=== PATIENT | female | born 1955 | race Caucasian/White ===

== ENCOUNTER → 2019-10-04 15:40 | Outpatient (CLI) | payer BC, SELFPAY ==
--- NOTE | ~2019-10-04 | MR_ITS ---
EXAMINATION: MR cervical spine wo/w con DATE: 10/04/2019 17:22 INDICATION: Neck pain. Cervical spondylosis without myelopathy or radiculopathy. TECHNIQUE: Magnetic resonance imaging (MRI) of the cervical spine was performed without and with 20 m m MultiHance intravenous contrast. Sequences included sagittal and axial T2-weighted FSE, sagittal ST IR FSE, and sagittal and axial T1-weighted FSE. Postcontrast sequences included sagittal and axial T1 -weighted FS FSE. COMPARISON: Cervical spine MRI 05/13/2019, chest CT 08/29/2019 FINDINGS: There is 2 mm anterolisthesis of C4 on C5 and 2 mm retrolisthesis of C6 on C7. There is kyp hosis of cervical spine. Vertebral body heights are normal. There is mildly decreased disc height at C4-C5, moderately decreased disc height at C5-C6, and severely decreased disc height at C6-C7. At C6- C7, the spinal cord is expanded with increased T2-weighted signal intensity and contrast enhancement. The following disc levels are specifically discussed: C2-C3: The disc does not extend beyond the endplate margin. There is no uncovertebral joint osteoarth ritis. There is severe right and moderate left facet joint osteoarthritis. There is mild bilateral ne ural foraminal stenosis. There is no central canal stenosis. C3-C4: The disc does not extend beyond the endplate margin. There is no uncovertebral joint osteoarth ritis. There is severe right and moderate left facet joint osteoarthritis. There is moderate right ne ural foraminal stenosis. There is no central canal stenosis. C4-C5: The disc does not extend beyond the endplate margin. There is moderate right and mild left unc overtebral joint osteoarthritis. There is severe right facet joint osteoarthritis. There is moderate right neural foraminal stenosis. There is mild central canal stenosis with ventral indentation of spi nal cord. C5-C6: The disc is bulging. There is severe bilateral uncovertebral joint osteoarthritis. There is se mark bilateral facet joint osteoarthritis. There is mild bilateral neural foraminal stenosis. There i s mild central canal stenosis with ventral indentation of the spinal cord. C6-C7: The disc is bulging. There is severe bilateral uncovertebral joint osteoarthritis. There is mi ld bilateral facet joint osteoarthritis. There is moderate bilateral neural foraminal stenosis. There is moderate central canal stenosis with ventral and dorsal indentation of the spinal cord. C7-T1: The disc does not extend beyond the endplate margin. There is no uncovertebral joint osteoarth ritis. There is severe bilateral facet joint osteoarthritis. There is mild bilateral neural foraminal stenosis. There is no central canal stenosis. IMPRESSION: 1. Worsened spinal cord lesion at C6-C7. The differential diagnosis includes multiple sclerosis, epen dymoma, astrocytoma, metastatic disease, lymphoma, and sarcoid. 2. Severe cervical spondylosis. Reviewed, dictated and finalized at location A. O VISUAL SECRETARY IMPRESSION: 1. Worsened spinal cord lesion at C6-C7. The differential diagnosis includes mu ltiple sclerosis, ependymoma, astrocytoma, metastatic disease, lymphoma, and sa rcoid. 2. Severe cervical spondylosis.
[2019-10-04 16:16] LABS: Blood Urea Nitrogen 12 mg/dL (8-26); Estimated Glomerular Filt Rate > 60
== END ==
DX: M47.812 Spondylosis without myelopathy or radiculopathy, cervical region (principal)
CPT/HCPCS: 72156; A9577

== ENCOUNTER → 2020-12-16 17:42 | Outpatient (CLI) | payer BC, SELFPAY ==
--- NOTE | ~2020-12-16 | DEXA_ITS ---
Bone Density Report Name: Vika Gonzalez Age: 65 Sex: Female Ethnicity: White Date of : 1955 Indication: postmenopausal; screening for osteoporosis; height loss; history of glucocorticoids; asthma or emphysema; rheumatoid arthritis; Referring Provider: HOLLIE VICTORIA Study: Bone densitometry was performed. Exam Date: December 16, 2020 Accession number: [id number] Bone Density: Region BMD T-score Z-score Classification AP Spine (L1-L4) 0.910 -1.2 0.4 Osteopenia Femoral Neck (Left) 0.602 -2.2 -0.8 Osteopenia Total Hip (Left) 0.889 -0.4 0.7 Normal Femoral Neck (Right) 0.674 -1.6 -0.1 Osteopenia Total Hip (Right) 0.901 -0.3 0.8 Normal Total Hip Mean 0.895 -0.4 0.8 Normal World Health Organization criteria for BMD impression classify patients as: Normal (T-score at or above -1.0), Osteopenia (T-score between -1.0 and -2.5), or Osteoporosis (T-score at or below -2.5). 10-year Fracture Risk(1): Major Osteoporotic Fracture 18% Hip Fracture 3.1% Reported Risk Factors: [place] (), Neck BMD=0.602, BMI=48.8, glucocorticoids, rheumatoid arthritis Input outside FRAX(R) limits. Adjusted to:Eqbykf=246 kg (1) FRAX(R) Version 3.08. Fracture probability calculated for an untreated patient. Fracture probability may be lower if the patient has received treatment. Previous Exams: Region Exam Age BMD T-score BMD Change BMD Change Date g/cm2 vs Baseline vs Previous AP Spine(L1-L4) 12/16/2020 65 0.910 -1.2 -0.089* -0.089* 05/19/2017 61 0.999 -0.4 Total Hip(Left) 12/16/2020 65 0.889 -0.4 -0.047* -0.047* 05/19/2017 61 0.936 -0.1 Total Hip(Right) 12/16/2020 65 0.901 -0.3 -0.054* -0.054* 05/19/2017 61 0.955 0.1 *Denotes significance at 95% confidence level, LSC for AP Spine = 0.022 g/cm2, LSC for Total Hip = 0.027 g/cm2 Clinical Information Provided by Patient: Has taken Glucocorticoids Has rheumatoid arthritis Has used the following medications: Vitamin D, Calcium Has the following medical conditions: Asthma or Emphysema Patient maximum height was 65 Menopause Age: 39 No regular weight bearing exercise Drinks caffeinated beverages Onset of menses at age 15 Number of children 2 Impression: The patient has low bone mass, based on the Left Femoral Neck T-score. The patient has an estimated ten-year risk of hip fracture of 3.1% and an estimated ten-year risk of major f
--- NOTE | ~2020-12-16 | MM_ITS ---
EXAMINATION: MM screening tiffany BI w jose alberto HISTORY: Screening mammogram TECHNIQUE: Craniocaudal and mediolateral oblique 3-D tomosynthesis images were obtained and synthetic 2-D images were generated. CAD analysis was submitted and interpreted. COMPARISON: 10/17/2018, 05/19/2017 bilateral digital screening mammogram examinations BREAST PARENCHYMAL COMPOSITION: The breasts are almost entirely fatty. FINDINGS: There is no evidence of suspicious mass, calcification, or architectural distortion to sugg est malignancy in either breast. There has been no suspicious interval change. IMPRESSION: 1. No mammographic evidence of malignancy. 2. Recommend routine screening mammography in one year. BI-RADS Category 1: Negative Reviewed, dictated and finalized at location A.
== END ==
PROVIDERS: Visit Provider Obstetrics & Gynecology Gynecology
DX: Z12.31 Encounter for screening mammogram for malignant neoplasm of breast (principal); Z78.0 Asymptomatic menopausal state; M85.852 Other specified disorders of bone density and structure, left thigh; M85.851 Other specified disorders of bone density and structure, right thigh
CPT/HCPCS: 77063; 77067; 77080

== ENCOUNTER 2021-01-16 14:12 | Outpatient (RCR) | payer BC, SELFPAY ==
[2021-01-16 14:18] VITALS: BMI 53.2
[2021-01-16 14:25] VITALS: BMI 53.2
== END 2021-04-07 11:29 | disposition home or self-care (01) ==
LOC: ANHDMC 14:12
PROVIDERS: Visit Provider Surgery
DX: E66.9 Obesity, unspecified (principal); Z68.43 Body mass index [BMI] 50.0-59.9, adult; Z71.3 Dietary counseling and surveillance
CPT/HCPCS: 97802

== ENCOUNTER → 2021-08-14 09:13 | Outpatient (CLI) | payer BC, SELFPAY ==
--- NOTE | ~2021-08-14 | CT_ITS ---
EXAMINATION: CT abdomen pelvis wo con DATE: 08/14/2021 09:37 INDICATION: Umbilical discomfort with protrusion for 2 years. Umbilical hernia with obstruction, with out gangrene Constipation TECHNIQUE: Computed tomography (CT) of the abdomen and pelvis was performed without intravenous contr ast. Automated exposure control and iterative reconstruction technique were employed. Exam dose: 100 6.49 mGy-cm total exam DLP. COMPARISON: None. FINDINGS: The lung bases are clear of infiltrate or consolidation. Normal heart size. No pericardial or pleural effusion. There is a large sliding hiatal hernia. The liver, gallbladder, bile ducts, spleen, pancreas and pancreatic duct are unremarkable. Normal morphology of the adrenal glands. No renal mass lesion or urinary tract calculus or hydroureteronephrosis. The urinary bladder, uterus and adnexal areas are unremarkable. There is extensive calcification of the abdominal aorta but no abdominal aortic aneurysm. No intraper itoneal or retroperitoneal or pelvic mass lesion or adenopathy or ascites is detected. There are scattered diverticula of the sigmoid and descending colon; no CT evidence of diverticulitis . No bowel obstruction, bowel wall thickening, pneumatosis or intraperitoneal free air is detected. N ormal appendix. There is a large fat-containing umbilical hernia measuring up to 5.5 cm AP, 7.5 cm transverse and 6.2 cm vertical dimension. The neck of the umbilical hernia is approximately 1.6 cm wide. There is degenerative disc disease in the lower thoracic spine. There is degenerative change at the lumbar apophyseal joints with associated minimal grade 1 anteroli sthesis at L3-4 and L4-5. There is moderate degenerative disc disease at the same levels. There is mild anterior wedge compression fracture deformity of L4. IMPRESSION: Large sliding hiatal hernia Diverticulosis of the left colon; no CT evidence of diverticulitis 5.5 x 7 x 5 x 6.2 cm fat-containing umbilical hernia L4 compression fracture deformity Degenerative changes of thoracic and lumbar spine Reviewed, dictated and finalized at Location [facility]. Reviewed, dictated and finalized at location B. [facility]
== END ==
PROVIDERS: Visit Provider Surgery
DX: K42.0 Umbilical hernia with obstruction, without gangrene (principal); M51.34 Other intervertebral disc degeneration, thoracic region; M51.36 Other intervertebral disc degeneration, lumbar region; K57.30 Diverticulosis of large intestine without perforation or abscess without bleeding; K44.9 Diaphragmatic hernia without obstruction or gangrene
CPT/HCPCS: 74176

== ENCOUNTER 2022-02-20 12:30 | Outpatient (CLI) | payer BC, SELFPAY ==
[2022-02-20 13:02] LABS: Anion Gap 5 mmol/L (8-16); Blood Urea Nitrogen 24 mg/dL (7-17); Calcium 8.9 mg/dL (8.4-10.2); Carbon Dioxide 31 mmol/L (22-30); Chloride 102 mmol/L (98-107); Estimated Glomerular Filt Rate 56; Glucose 106 mg/dL (65-110); Sodium 138 mmol/L (137-145)
[2022-02-20 13:06] LABS: Hematocrit 42.2 % (37.0-47.0); Hemoglobin 13.7 g/dL (12.0-15.0)
== END 2022-02-20 12:31 | disposition home or self-care (01) ==
LOC: ANHSURGERY 12:35
PROVIDERS: Anesthesiology; PCP Internal Medicine Rheumatology; Referring Provider Obstetrics & Gynecology Gynecology; Visit Provider Surgery
DX: D64.9 Anemia, unspecified (principal); K42.0 Umbilical hernia with obstruction, without gangrene; Z01.818 Encounter for other preprocedural examination
CPT/HCPCS: 36415; 80048; 85014; 85018; 86850; 86900; 86901

== ENCOUNTER 2022-02-24 00:26 | Day surgery (SDC) | payer BC, SELFPAY ==
[2021-10-07 12:34] VITALS: BMI 47.9
--- NOTE | 2021-10-07 12:49 | PC.NURSE ---
Addendum entered by Aleah Costello RN 11/25/21 14:29: PT TO ARRIVE AT 0600 ON 12/02/21 FOR SURGERY AT 0730. STOP VITAMINS 11/29/21. Original Note: Report to the Outpatient Waiting Room, entrance under the green pavilion located off [facility], at time 6:00 on date 10/15/21. OR Time: 7:30. - You will be asked a series of questions to screen for COVID 19 for your protection. - A mask is required within the hospital. - One visitor is allowed at this time. Preoperative COVID Testing Requirements: No COVID Test needed if: (proof is required; if not received patient will have Rapid Test prior to entry) - Patient has received COVID Vaccine at least 14 days prior to procedure date or - Patient has positive COVID test result within last 90 days of surgery date. COVID Test needed if above criteria is not met Patients may have clear liquids (water, carbonated beverages, clear teas, apple juice) until 3 hours prior to surgery (4:30) with a maximum of 20 ounces. - No food from midnight until time of surgery Take the following medications with a SIP of water the morning of surgery: LYRICA, DILTIAZEM, CEFUROXIME, TRAMADOL (IF NEEDED) Medications to discontinue per physician: VITAMINS/SUPPLEMENTS Date to take last dose: 10/11/21 Please no make-up, nail irish, hairspray, perfume, deodorant, or body powder the day of surgery. No jewelry (including any body piercings) or valuables the day of surgery, leave them at home. Please take a shower or bath the night before, or the morning of, surgery with an antibacterial soap. Wear comfortable, loose fitting clothing. CHLORHEXIDINE SHOWER - Jewelry must be removed prior to entering the operating room. Rings and piercings that are not removed may be cut off. - The hospital will not accept responsibility for valuables. - Please leave all valuables, including medications, at home the day of surgery. If you are going home after surgery, a licensed tanker driver must drive you home. - NO public transportation without another adult. - We recommend that an adult stay with you for 24 hours following discharge. - We also recommend that you do not drive, make important decision, drink alcoholic beverages, or take any drugs that were not prescribed by your health care provider for at least 24 hours after your discharge time. Follow any additional instructions given to you from your surgeon. Telephone instructions given to OSMIN VALLES and asked if any additional questions and then verbalized understanding. Patient advised to call surgeon office or pre surgery nurse liaison [phone] if any additional questions.
[2021-11-25 14:14] VITALS: BMI 47.9
--- NOTE | 2021-12-01 11:01 | P.PNAN_ITS ---
Anes - Initial Pre Proc Eval Procedure: Operation Date: 12/02/21 07:30 Proposed Procedures p Laparoscopic Incarcerated Umbilical Hernia Repair with Mesh, Davinci Assisted - Slick Thakkar DO Date/Time: 12/01/21 11:01 Surgeon: Slick Thakkar DO Pre Op Diagnosis: incarcerated umbilical hernia Patient Data Age: 66 Gender: F Height: 1.63 m Weight: 126.55 kg Allergies Allergy/AdvReac Type Severity Reaction Status Date / Time No Known Allergies Allergy Verified 11/25/21 14:12 Home Medications Medication Instructions Recorded Confirmed Type cholecalciferol (vitamin D3) 10 10 mcg PO DAILY 10/28/20 11/25/21 History mcg (400 unit) capsule diltiazem HCl 300 mg 300 mg PO DAILY 10/28/20 11/25/21 History capsule,extended release 24 hr doxazosin 4 mg tablet 10 mg PO HS 10/28/20 11/25/21 History folic acid 1 mg tablet 1 mg PO DAILY 10/28/20 11/25/21 History infliximab 100 mg intravenous 600 mg IV ONCE 10/28/20 11/25/21 History solution methotrexate sodium 2.5 mg tablet 2.5 mg PO WEEKLY 10/28/20 11/25/21 History omeprazole 20 mg capsule,delayed 20 mg PO DAILY 10/28/20 11/25/21 History release quinapril 40 mg tablet 40 mg PO DAILY 10/28/20 11/25/21 History torsemide 10 mg tablet 10 mg PO QAM 10/28/20 11/25/21 History tramadol 50 mg tablet 50 mg PO Q6H PRN 10/28/20 11/25/21 History zolpidem 10 mg tablet 10 mg PO QHS PRN 10/28/20 11/25/21 History baclofen 10 mg PO TID 10/07/21 11/25/21 History pregabalin [Lyrica] 50 mg PO TID 10/07/21 11/25/21 History sulfamethoxazole-trimethoprim 1 tablet PO Q12H 12/01/21 12/01/21 History [Bactrim DS] Results Review: All pre-operative results and documents have been reviewed as part of the pre-operative evaluation. [facility] Past Medical History Medical History Asthma GERD (gastroesophageal reflux disease) History of blood clots March 2019 Hypertension JEROME (obstructive sleep apnea) Surgical History Surgical History History of delivery History of endoscopy History of sinus surgery Family History Family History Mother Ovarian cancer Hypertension Unknown Hypertension Cancer Social History Social History Smoking status: Never smoker Alcohol intake: current Drinks per week: 2 Alcohol use details: social Substance use: never Substance use type: does not use 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 Informed Consent: The patient's anesthetic plan and its attendant risks and bene fits were discussed with the patient/family/POA. Questions were solicited and answers provided to the satisfaction of the patient/family/POA.
--- NOTE | 2022-02-16 10:20 | PC.NURSE ---
Addendum entered by Naida Burgess RN 02/16/22 10:42: DR BOWEN STATES OK TO TAKE CELEBREX UP UNTIL THE DAY BEFORE SURGERY. Original Note: Report to the Outpatient Waiting Room, entrance under the [place] pavilion located off [facility], at time _0630_ on date 02/24/22__. OR Time: 0830__. - You and your visitor will be asked a series of questions to screen for COVID 19 for your protection. - Only one visitor is allowed at this time. - The patient visitor is requested to leave or wait in car when not with patient. - A mask is required within the hospital. Patients may have clear liquids (water, carbonated beverages, clear teas, apple juice) until 3 hours prior to surgery with a maximum of 20 ounces. - No food from midnight until time of surgery - Infants may have breast milk until 4 hours before surgery, infant formula 6 hours prior to surgery. - Children will be allowed to drink immediately following surgery. If applicable, please bring a bottle or sippy cup to assist with drinking. Juice, water, soda, and popsicles are readily available. For infants on formula, please bring formula the day of surgery. Pacifiers are allowed. Take the following medications with a SIP of water the morning of surgery: __LYRICA,DILTIAZEM, TRAMADOL Medications to discontinue per physician CELEBREX, VITAMINS/SUPPLIMENTS Date to take last dose 02/20/22 Please no make-up, nail [place] citizen, hairspray, perfume, deodorant, or body powder the day of surgery. No jewelry (including any body piercings) or valuables the day of surgery, leave them at home. Please take a shower or bath the night before, or the morning of, surgery with an antibacterial soap. Wear comfortable, loose fitting clothing. Children are encouraged to wear pajamas. - Jewelry must be removed prior to entering the operating room. Rings and piercings that are not removed may be cut off. - The hospital will not accept responsibility for valuables. - Please leave all valuables, including medications, at home the day of surgery. If you are going home after surgery, a licensed [employer] driver must drive you home. - NO public transportation without another adult. - We recommend that an adult stay with you for 24 hours following discharge. - We also recommend that you do not drive, make important decision, drink alcoholic beverages, or take any drugs that were not prescribed by your health care provider for at least 24 hours after your discharge time. For Pediatric surgeries, we recommend two adults accompany the child home (only one inside the building at this time). Follow any additional instructions given to you from your surgeon. If you or anyone in your household have experienced Covid symptoms in the past week, please notify your surgeon or the nurse liaison at the phone number below for possible testing. Telephone instructions given to ___PATIENT____and asked if any additional questions and then verbalized understanding. Patient advised to call surgeon office or pre surgery nurse liaison [phone] if any additional questions.
[2022-02-24] VITALS (10 sets, daily range): BP systolic 119–154; BP diastolic 52–70; PULSE 48–74; RESP 12–18; TEMP 36.2–36.3; O2SAT 92–98
[2022-02-24] MEDS: LACTATED RINGERS 1,000 ML 30 ML IV CONT ×2 (07:20→10:31)
[2022-02-24] MEDS: ACETAMINOPHEN 500 MG TABLET 1000 MG PO (07:22)
[2022-02-24] MEDS: KETOROLAC 15 MG/ML VIAL (*BKC) IV PUSH (07:23)
--- NOTE | 2022-02-24 07:37 | PM.IMHP ---
H&P: HPI History of Present Illness Date/Time: 02/24/22 07:37 Chief Complaint: Incarcerated umbilical hernia Narrative: 66 yo woman presents for incarcerated umbilical hernia repair. She has been followed for the past year and was encouraged to lose weight prior to surgical repair. She has tried losing weight but has been unsuccessful. The hernia is causing more symptoms and she wishes to proceed with surgery at this time. Review of Systems Review of Systems: All systems reviewed & are unremarkable except as noted in HPI and below Constitutional: Constitutional: Denies chills, Denies fever(s), Denies headache(s) and Denies weight loss Eyes: Eyes: Denies change in vision ENT: Denies dizziness, Denies headache(s), Denies neck mass and Denies throat swelling Cardiovascular: Cardiovascular: Denies chest pain, Denies lightheadedness and Denies dyspnea Respiratory: Respiratory: Denies cough, Denies dyspnea and Denies wheezing Gastrointestinal: Gastrointestinal: Denies abdominal pain, Denies change in bowel habits, Denies nausea and Denies vomiting Genitourinary: Genitourinary: Denies hematuria and Denies dysuria Musculoskeletal: Musculoskeletal: Reports as per HPI Integumentary/Breasts: Skin/Breast: Reports as per HPI Neurologic: Denies dizziness and Denies headache(s) Allergic/Immunologic: Allergic/Immunologic: Denies throat swelling and Denies wheezing PMFSH Past Medical History Medical History Asthma GERD (gastroesophageal reflux disease) History of blood clots March 2019 Hypertension JEROME (obstructive sleep apnea) Surgical History Surgical History History of delivery History of endoscopy History of sinus surgery Family History Family History Mother Ovarian cancer Hypertension Unknown Hypertension Cancer Social History Social History Smoking status: Never smoker Alcohol intake: current Drinks per week: 2 Alcohol use details: social Substance use: never Substance use type: does not use Living arrangements: with family 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 Spiritual care concerns: No Meds Home Medications and Allergies Home Medications Medication Instructions Recorded Confirmed Type cholecalciferol (vitamin D3) 10 10 mcg PO WEEKLY 10/28/20 02/24/22 History mcg (400 unit) capsule diltiazem HCl 300 mg 300 mg PO DAILY 10/28/20 02/24/22 History capsule,extended release 24 hr doxazosin 4 mg tablet 10 mg PO HS 10/28/20 02/24/22 History folic acid 1 mg tablet 1 mg PO DAILY 10/28/20 02/24/22 History infliximab 100 mg intravenous 800 mg IV ONCE 10/28/20 02/24/22 History solution (Remicade) methotrexate sodium 2.5 mg tablet 25 mg PO WEEKLY 10/28/20 02/24/22 History omeprazole 20 mg capsule,delayed 20 mg PO DAILY 10/28/20 02/24/22 History release quinapril 40 mg tablet 40 mg PO DAILY 10/28/20 02/24/22 History torsemide 10 mg tablet 10 mg PO QAM 10/28/20 02/24/22 History tramadol 50 mg tablet 50 mg PO Q6H PRN Pain 10/28/20 02/24/22 History zolpidem 10 mg tablet 10 mg PO QHS PRN Insomnia 10/28/20 02/24/22 History baclofen 10 mg tablet 10 mg PO TID 10/07/21 02/24/22 History pregabalin 50 mg capsule (Lyrica) 50 mg PO QID 10/07/21 02/24/22 History albuterol sulfate 90 mcg/actuation 2 puff inhalation QID PRN 02/16/22 02/24/22 History aerosol inhaler Shortness Of Breath celecoxib 200 mg capsule (Celebrex) 200 mg PO BID PRN Pain 02/16/22 02/24/22 History Allergies Allergy/AdvReac Type Severity Reaction Status Date / Time No Known Allergies Allergy Verified 02/24/22 07:05 Vital Signs Vital Signs - 24 hr 02/24/22 07:00 Temperature 36.3 C L Pulse Rate 65 Respiratory Rate 18 Blood Pressure 148/67 H Pulse Oxim
--- NOTE | 2022-02-24 07:41 | WPDANESEPPF ---
Anes - Initial Pre Proc Eval Procedure: Operation Date: 02/24/22 08:30 Proposed Procedures p Laparoscopic Incarcerated Umbilical Hernia Repair with Mesh, Davinci Assisted - Slick Thakkar DO Date/Time: 02/24/22 07:41 Surgeon: Slick Thakkar DO Pre Op Diagnosis: incarcerated umbilical hernia Patient Data Age: 66 Gender: F Height: 1.63 m Weight: 123 kg Last Vital Signs Temp 36.3 C L 02/24/22 07:00 Pulse 65 02/24/22 07:00 Resp 18 02/24/22 07:00 BP 148/67 H 02/24/22 07:00 Pulse Ox 97 02/24/22 07:00 O2 Del Method Room Air 02/24/22 07:00 Allergies Allergy/AdvReac Type Severity Reaction Status Date / Time No Known Allergies Allergy Verified 02/24/22 07:05 Home Medications Medication Instructions Recorded Confirmed Type cholecalciferol (vitamin D3) 10 10 mcg PO WEEKLY 10/28/20 02/24/22 History mcg (400 unit) capsule diltiazem HCl 300 mg 300 mg PO DAILY 10/28/20 02/24/22 History capsule,extended release 24 hr doxazosin 4 mg tablet 10 mg PO HS 10/28/20 02/24/22 History folic acid 1 mg tablet 1 mg PO DAILY 10/28/20 02/24/22 History infliximab 100 mg intravenous 800 mg IV ONCE 10/28/20 02/24/22 History solution (Remicade) methotrexate sodium 2.5 mg tablet 25 mg PO WEEKLY 10/28/20 02/24/22 History omeprazole 20 mg capsule,delayed 20 mg PO DAILY 10/28/20 02/24/22 History release quinapril 40 mg tablet 40 mg PO DAILY 10/28/20 02/24/22 History torsemide 10 mg tablet 10 mg PO QAM 10/28/20 02/24/22 History tramadol 50 mg tablet 50 mg PO Q6H PRN Pain 10/28/20 02/24/22 History zolpidem 10 mg tablet 10 mg PO QHS PRN Insomnia 10/28/20 02/24/22 History baclofen 10 mg tablet 10 mg PO TID 10/07/21 02/24/22 History pregabalin 50 mg capsule (Lyrica) 50 mg PO QID 10/07/21 02/24/22 History albuterol sulfate 90 mcg/actuation 2 puff inhalation QID PRN 02/16/22 02/24/22 History aerosol inhaler Shortness Of Breath celecoxib 200 mg capsule (Celebrex) 200 mg PO BID PRN Pain 02/16/22 02/24/22 History Patient hx anesthesia problems: none Family hx anesthesia problems: none Results Review: All pre-operative results and documents have been reviewed as part of the pre-operative evaluation. [facility] Past Medical History Medical History (Updated 02/24/22 @ 07:43 by Kofi Lyon MD) Asthma BMI 45.0-49.9, adult GERD (gastroesophageal reflux disease) History of blood clots March 2019 Hypertension Neurosarcoidosis in adult JEROME (obstructive sleep apnea) Rheumatoid arthritis Surgical History Surgical History History of delivery History of endoscopy History of sinus surgery Family History Family History Mother Ovarian cancer Hypertension Unknown Hypertension Cancer Social History Social History Smoking status: Never smoker Alcohol intake: current Drinks per week: 2 Alcohol use details: social Substance use: never Substance use type: does not use Living arrangements: with family 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 Informed Consent: The patient's anesthetic plan and its attendant risks and benefits were discussed with the patient/family/POA. Questions were solicited and answers provided to the satisfaction of the patient/family/PO
--- NOTE | 2022-02-24 07:42 | WPDHPUPDATE1 ---
History and Physical Update Update Date/Time: 02/24/22 07:42 History and Physical has been reviewed, including an updated exam of the patient. There are NO changes in the patient's condition. Risks, benefits, and alternatives have been discussed and questions answered. Patient agrees to proceed with procedure.
[2022-02-24] MEDS: ceFAZolin 3 GM/D5W 100 ML 100 ML IVPB (08:27)
--- NOTE | 2022-02-24 10:23 | W.PM.PROC2 ---
Procedure Note - Detailed Date of Procedure 02/24/22 Pre-op Diagnosis incarcerated umbilical hernia Post-op Diagnosis Same Procedure Performed Laparoscopic Incarcerated Umbilical Hernia Repair with Mesh, da Dusty assisted Surgeon Slick Thakkar DO Anesthesia General and Local (Exparel) Indications This is a 66-year-old woman who presented with a hernia at her umbilicus that has been present for the past several years. It has gradually become larger and is causing more pain and difficulty with activity. She was 1st seen in my office about 1 year ago and had a BMI around 53. She has lost about 40 lb since then and her BMI is now around 46. Discussions were previously made with the patient about delaying surgery until she had lost more weight, but she felt that her symptoms were severe enough now with pain with the hernia that she wanted to proceed. Decision was made to proceed with robotic assisted laparoscopic incarcerated umbilical hernia repair with mesh. Findings Laparoscopic incarcerated umbilical hernia repair was performed. The patient was found to have an umbilical hernia incarcerated with omentum. Part of the omentum was excised with the hernia sac and sent to the lab for pathology. A robotic intraperitoneal onlay mesh technique was utilized for repair. The hernia defect only measured about 1.5 cm wide. The fascia was closed using #1 Stratafix running absorbable suture. A Ventralight ST 15 cm x 10 cm mesh was then placed and secured around the perimeter of the mesh to the abdominal wall using 2 0 V lock running absorbable suture. Description of Procedure Procedure as well as risks, benefits, and alternatives were discussed with the patient. Written consent was obtained and placed in chart prior to procedure. Patient was brought back to surgical suite. She was placed supine on operating table. Time-out was done to confirm patient and procedure. She was then intubated by the anesthesia department. A bump was placed under her left hip, and the bed was flexed slightly to extend the space between her costal margin and iliac crest. Her abdomen was prepped and draped in sterile fashion using chlorhexidine prep. A 5 millimeter incision was made in the left upper quadrant, and a 5 millimeter Optiview trocar was advanced through the abdominal layers under direct visualization. Once inside the abdominal cavity, carbon dioxide insufflation was used to create a pneumoperitoneum. Her abdomen was inspected. An 8 millimeter incision was made in the left lower quadrant, and an 8 millimeter robotic trocar was placed under direct visualization. Another 8 millimeter incision was made in the left lateral abdomen, and an 8 millimeter robotic trocar was placed under direct visualization. Exparel was infiltrated along the lateral abdominal long to perform a transversus abdominis plane block bilaterally. The 5 millimeter port was removed, the incision was extended to 12 millimeters, and a 12 millimeter air seal port was placed under direct visualization. A Esteban-Downey cone was also used to place an 0-Vicryl simple interrupted suture at this trocar site. The robotic arms were brought up to the patient's bedside and secured to the ports. The camera and instruments were inserted, and I then moved over to the robotic console and took control of the camera and instruments. After careful thorough inspection of the abdominal cavity, I began my dissection at the hernia. The omentum was reduced from within the hernia sac and then the hernia sac was excised using scissors with electrocautery. I then measured the hernia size. The hernia measured 1.5 cm. The fascia was closed using a 1-Stratafix running suture in a vertical fashion. A Ventralight ST 15 cm x 10 cm mesh was then placed within the abdominal cavity. This was oriented vertically with the mesh centered on the hernia defect. The mesh was then secured to the abdominal wall around the perimeter us
[2022-02-24] MEDS: fentaNYL CITRATE INJ (*CRX) 100 MCG/2 ML VIAL 25 MCG IV PUSH ×2 (11:17→11:32)
[2022-02-24] MEDS: oxyCODONE HCL (*CRX) 5 MG TAB IR PO (11:59)
== END 2022-02-24 12:58 | disposition home or self-care (01) ==
PROVIDERS: PCP Internal Medicine Rheumatology; Visit Provider Surgery
PROC: (CPT 49653; principal; 2022-02-24 08:30)
DX: K42.0 Umbilical hernia with obstruction, without gangrene (principal); J45.909 Unspecified asthma, uncomplicated; G47.33 Obstructive sleep apnea (adult) (pediatric); M06.9 Rheumatoid arthritis, unspecified; I10 Essential (primary) hypertension; Z79.51 Long term (current) use of inhaled steroids; E66.01 Morbid (severe) obesity due to excess calories; Z68.42 Body mass index [BMI] 45.0-49.9, adult
CPT/HCPCS: 49653; S2900; 88302; A9270; C1781; C9290; J0330; J0690; J1100; J1885; J2250; J2405; J2704; J2710; J3010; J7030; J7120

== ENCOUNTER 2022-09-09 11:05 | Outpatient (CLI) | payer BC, SELFPAY ==
--- NOTE | ~2022-09-09 | US_ITS ---
US venous doppler [facility] DATE: 09/09/2022 12:16 INDICATION: Bilateral lower leg edema TECHNIQUE: Real-time and color flow imaging and Doppler analysis of the veins of the lower extremitie s COMPARISON: None FINDINGS: The greater saphenous veins are patent. There is spontaneous and phasic flow and normal aug mentation and color flow signal and normal compression of the common femoral, femoral and popliteal v eins bilaterally and the left posterior tibial and peroneal veins. The right peroneal and mid right posterior tibial veins are not visualized. There is partial compress ion of the distal right posterior tibial vein. IMPRESSION: Suspected deep venous thrombosis of the right posterior tibial and peroneal veins; the re mainder of the deep veins of both legs are patent Reviewed, dictated and finalized at [facility]. Reviewed, dictated and finalized at location B. RAISER IMPRESSION: Suspected deep venous thrombosis of the right posterior tibial and peroneal veins; the remainder of the deep veins of both legs are patent
== END 2022-09-09 11:06 | disposition home or self-care (01) ==
PROVIDERS: PCP Internal Medicine Rheumatology; Visit Provider Internal Medicine Rheumatology
DX: R60.0 Localized edema (principal)
CPT/HCPCS: 93970

== ENCOUNTER → 2022-09-25 16:31 | Outpatient (CLI) | payer BC, SELFPAY ==
--- NOTE | ~2022-09-25 | MM_ITS ---
EXAMINATION: MM screening tiffany BI w jose alberto HISTORY: Screening mammogram TECHNIQUE: Craniocaudal and mediolateral oblique 3-D tomosynthesis images were obtained and synthetic 2-D images were generated. CAD analysis was submitted and interpreted. COMPARISON: 12/16/2020, 10/17/2018, 05/19/2017 bilateral screening mammogram examinations BREAST PARENCHYMAL COMPOSITION: The breasts are almost entirely fatty. FINDINGS: There is no evidence of suspicious mass, calcification, or architectural distortion to sugg est malignancy in either breast. There has been no suspicious interval change. IMPRESSION: 1. No mammographic evidence of malignancy. 2. Recommend routine screening mammography in one year. BI-RADS Category 1: Negative Reviewed, dictated and finalized at location A. [employer]
== END ==
PROVIDERS: Visit Provider Obstetrics & Gynecology Gynecology
DX: Z12.31 Encounter for screening mammogram for malignant neoplasm of breast (principal)
CPT/HCPCS: 77063; 77067

== ENCOUNTER 2023-08-26 07:37 | Outpatient (CLI) | payer OTHER, SELFPAY ==
--- NOTE | 2023-08-26 | ECG_ITS ---
Measurements Intervals [place] Rate: 65 P: 44 NC: 142 QRS: 20 QRSD: 106 T: -5 QT: 329 QTc: 343 Interpretive Statements SINUS RHYTHM NONSPECIFIC T-WAVE ABNORMALITY- INFERIOR LEADS BASELINE ARTIFACT- I, II, III, AVR, AVL, AVF BORDERLINE ECG NO PREVIOUS ECG AVAILABLE FOR COMPARISON Electronically Signed On 08-26-2023 9:23:28 ELECTRONICS TECHNICIAN APPRENTICE by Constantin Maxwell D.O.
[2023-08-26 08:41] LABS: Appearance Urine Clear (Clear); Bacteria Urine None Seen /hpf; Bilirubin Urine Negative (Negative); Blood Urine Negative (Negative); Color Urine Yellow (Yellow); Glucose Urine UA Negative (Negative); Ketones Urine Negative (Negative); Leukocyte Esterase Ur Trace LEU/UL (Negative); Nitrate Urine Negative (Negative); Non Pathogenic Casts 0-2; Protein Urine Negative (Negative); RBC Urine 0-2 /hpf (0-2); Specific Grav Ur 1.005 (1.001-1.035); Squamous Epithelial Cell Urine None seen /hpf (Few); Urobilinogen Urine 0.2 mg/dL (<2.0); WBC Urine 0-5 /hpf
[2023-08-26 08:43] LABS: Add Urine Microscopic? YES
[2023-08-26 08:46] LABS: Basophils Percent Auto 0.9 % (0.2-1.2); Eosinophils Absolute Auto 0.2 K/mm3 (0-0.3); Eosinophils Percent Auto 3.9 % (0-4.4); Hematocrit 41.7 % (37.0-47.0); Hemoglobin 13.6 g/dL (12.0-15.0); Immature Granulocyte Absolute 0.02 K/mm3 (0.00-0.031); Immature Granulocyte Percent A 0.4 % (0-0.5); Lymphocytes Absolute Auto 0.84 K/mm3 (0.9-3.2); Lymphocytes Percent Auto 18.1 % (18.3-44.2); Mean Corpuscular HGB Conc 32.6 g/dl (32-36); Mean Corpuscular Hemoglobin 31.5 pg (26-34); Mean Corpuscular Volume 96.5 fl (80-100); Mean Platelet Volume 9.8 fl (7.4-10.4); Monocytes Absolute Auto 0.4 K/mm3 (0.1-0.6); Monocytes Percent Auto 8.6 % (2.6-8.5); Neutrophils Absolute Auto 3.2 K/mm3 (1.3-6.7); Neutrophils Percent Auto 68.1 % (45.5-73.1); Platelet Count Result 278 k/mm3 (150-375); Red Blood Count 4.32 M/mm3 (4.2-5.4); Red Cell Distribution Width 13.9 % (11.5-14.5); White Blood Count 4.6 K/mm3 (4.5-10.0)
[2023-08-26 08:57] LABS: INR 1.1; Prothrombin Time 14.7 Seconds (11.1-14.7)
[2023-08-26 08:58] LABS: Partial Thromboplastin Time 40.7 SECONDS (22.3-36.8)
[2023-08-26 09:12] LABS: Anion Gap 10 mmol/L (8-16); Blood Urea Nitrogen 15 mg/dL (7-17); Calcium 9.4 mg/dL (8.4-10.2); Carbon Dioxide 32 mmol/L (22-30); Chloride 97 mmol/L (98-107); Estimated Glomerular Filt Rate > 60; Glucose 88 mg/dL (65-110); Potassium 3.2 mmol/L (3.4-5.0); Sodium 139 mmol/L (137-145)
== END 2023-08-26 07:38 | disposition home or self-care (01) ==
LOC: ANHLAB 07:44
PROVIDERS: Visit Provider Neurological Surgery
DX: Z01.818 Encounter for other preprocedural examination (principal); R94.31 Abnormal electrocardiogram [ECG] [EKG]
CPT/HCPCS: 36415; 80048; 81001; 85025; 85610; 85730; 93005

== ENCOUNTER 2023-12-30 13:00 | Outpatient (RCR) | payer OTHER, SELFPAY ==
--- NOTE | 2023-11-18 14:07 | PTOPEVAL1 ---
Assessment and note entered by Pablo Gaitan Evaluation Information Assessment Status Evaluation Diagnosis s/p L3-5 Onset 09/04/23 Subjective Information Pt. reports she underwent lumbar fusion in August . She reports that she is currently using a cane to walk. She states that she still has pain described across the buttock. She states that she does have some trouble sleeping due to pain in her low back. She reports that she does have a hx of RA. She states that she can stand for about 10 minutes before having to sit. She reports that she has returned to driving, but her continues to complete tasks that require being on her feet for long periods of time. She states that she feels unstable with walking and states that she avoids the stairs to her basement. She reports that her is doing her laundry due to her lack of safety with stairs. She reports that her goal for therapy is to improve her mobility and be able to walk better and navigate steps. Reported Pain Level Pain Score 3: Self Report Assessment PT Clinical Summary Pt. is a 68 year old female who enters the clinic post lumbar fusion. She presents with moderate fall risk, impaired gait, impaired l.e. strength and functional decline. Continued skilled PT is indicated in order to improve these areas to allow for improved safety and independence with IADL's. Plan of Care Interventions Electrical Stimulation,Gait Training,Hot Pack/Cold Pack,Manual Therapy,Neuro Re-education,Patient/ Caregiver Educati,Therapeutic Activities, Therapeutic Exercise PT Services Indicated Yes Treatment Frequency and 2x/week x 10 visits Duration These treatments will address the objective and functional deficits as defined above. The patient will be advanced safely and appropriately in order for the patient to progress towards his/her prior level of function. Additional exercises will be introduced and as well as a comprehensive home exercise program upon discharge, if needed, ?to ensure carryover of functional gains achieved in the clinic. This treatment plan has been reviewed and agreement upon by the patient.
--- NOTE | 2023-11-18 14:07 | OPREHPOC ---
Outpatient Therapy Plan of Care This is a Multidisciplinary Plan of Care that may contain components documented by all disciplines (PT, OT, and ST.) PT Problem 1 PT Problem #1 Knowledge Deficit PT Goal 1 Goal Independent with a HEP addressing strength and functional mobility. Target Visit 2 PT Problem 2 PT Problem #2 Impaired Balance PT Goal 1 Goal Improve tinetti score to 24 or greater Improve 5 time sit to stand to less than 13 seconds Target Visit 10 PT Problem 3 PT Problem #3 Impaired Gait PT Goal 1 Goal Complete 6 minute walk test with equal right and left stance at 100% accuracy over a distance of 800'. Navigate stairs with reciprocal pattern for 15 steps independently to return to safely doing her laundry. Target Visit 10 PT Problem 4 PT Problem #4 Impaired Strength PT Goal 1 Goal Present with 4/5 or greater gross l.e. strength Target Visit 10
--- NOTE | 2023-12-30 13:48 | PTOPDC ---
Assessment and note entered by Pablo Gaitan Evaluation Information Assessment Status Discharge Diagnosis s/p L3-5 fusion Onset 09/04/23 Subjective Information Pt. reports that she is doing better. She notices that she is able to get out of a chair with improved ease. She states that she still has trouble with walking over a long distance. She states that she will continue with her HEP and is ready for discharge. Reported Pain Level Pain Score 2: Self Report Assessment PT Clinical Summary Pt. has met majority of goals established at the initial evaluation. She is encouraged to continue with her HEP and is appropriate for discharge at this time. Plan of Care PT Services Indicated No
== END 2023-12-30 14:58 | disposition home or self-care (01) ==
LOC: ANHPT 13:00
PROVIDERS: Visit Provider Neurological Surgery
DX: Z47.89 Encounter for other orthopedic aftercare (principal); Z98.1 Arthrodesis status
CPT/HCPCS: 97110; 97116; 97140; 97161; 97530; 97750

== ENCOUNTER 2024-02-11 13:03 | Outpatient (CLI) | payer OTHER, SELFPAY ==
--- NOTE | ~2024-02-11 | MM_ITS ---
EXAMINATION: MM screening tiffany BI w jose alberto HISTORY: Screening TECHNIQUE: Craniocaudal and mediolateral oblique 3-D tomosynthesis images were obtained and synthetic 2-D images were generated. CAD analysis was submitted and interpreted. COMPARISON: Comparison to multiple prior studies sequentially, with oldest reviewed study dated 05/19. BREAST PARENCHYMAL COMPOSITION: Not dense: There are scattered areas of fibroglandular density. FINDINGS: There is no evidence of suspicious mass, calcification, or architectural distortion to sugg est malignancy in either breast. There has been no suspicious interval change. IMPRESSION: 1. No mammographic evidence of malignancy. 2. Recommend routine screening mammography in one year. BI-RADS Category 1: Negative Reviewed, dictated and finalized at location B.
--- NOTE | ~2024-02-11 | DEXA_ITS ---
? Bone Density Report? Name:? OSMIN VALLES Patient ID:??? [id number] Age:? 68 Sex:? Female Ethnicity:? White Date of : 1955 Indication: postmenopausal; screening for osteoporosis; height loss; asthma or emphysema; rheumatoid arthritis; Referring Provider: HOLLIE VICTORIA Study: Bone densitometry was performed. Exam Date: February 11, 2024 Accession number: [id number] Bone Density: Region?BMD??? T-score? Z-score?? Classification Femoral Neck (Left)? 0.540?? -2.8? -1.2? Osteoporosis Total Hip (Left)? 0.764?? -1.5? -0.2? Osteopenia Femoral Neck (Right)? 0.617?? -2.1? -0.5? Osteopenia Total Hip (Right)? 0.764?? -1.5? -0.2? Osteopenia Femoral Neck Mean? 0.578?? -2.4? -0.9? Osteopenia Total Hip Mean? 0.764?? -1.5? -0.2? Osteopenia World Health Organization criteria for BMD impression classify patients as: Normal (T-score at or above -1.0), Osteopenia (T-score between -1.0 and -2.5), or Osteoporosis (T-score at or below -2.5). 10-year Fracture Risk: FRAX not reported because: ? Some T-score for Spine Total or Hip Total or Femoral Neck at or below -2.5 Clinical Information Provided by Patient: Has rheumatoid arthritis Has the following medical conditions: Asthma or Emphysema Patient maximum height was 65 Menopause Age: 52 No regular weight bearing exercise Drinks caffeinated beverages Onset of menses at age 14 Number of children 2 Impression: The patient has osteoporosis, based on the Left Femoral Neck T- score. Discussion: INCREASED RISK OF FRACTURE. BONE DENSITY IS UNDESIRABLY LOW AT ONE OR MORE SKELETAL SITES, CONSISTENT WITH POSTMENOPAUSAL OSTEOPOROSIS. This patient's lowest T-score meets the World Health Organization's (WHO) criteria for osteoporosis at one or more sites (T-score -2.5 or below).? In untreated patients, the risk of osteoporotic fracture increases approximately two-fold for each 1.0 SD decrease in T-score.? Low bone density is not the only risk factor for fracture; also consider factors such as patient's age, frailty or poor health, risk of falling, risk of injury, previous osteoporotic fracture, family history of osteoporosis, cigarette smoking, low body weight, etc.? Not everyone with low bone mineral density has osteoporosis; osteomalacia and other metabolic bone disorders should also be considered. Patients who have osteoporosis should be evaluated for specific diseases and conditions (secondary causes) that may cause or contribute to bone loss.? The [place] [employer] Endocrinologists (AACE) and National Osteoporosis Foundation (NOF) recommend pharmacologic intervention for all postmenopausal women whose T-score is in this range. The damaso
== END 2024-02-11 13:04 | disposition home or self-care (01) ==
LOC: CHSIMG 13:04
PROVIDERS: PCP Internal Medicine Rheumatology; Visit Provider Obstetrics & Gynecology Gynecology
DX: Z12.31 Encounter for screening mammogram for malignant neoplasm of breast (principal); Z78.0 Asymptomatic menopausal state; M81.0 Age-related osteoporosis without current pathological fracture; M85.89 Other specified disorders of bone density and structure, multiple sites
CPT/HCPCS: 77063; 77067; 77080

== ENCOUNTER 2024-09-13 19:57 | Emergency (ER) | payer MEDICARE, SELFPAY ==
--- NOTE | ~2024-09-13 | US_ITS ---
EXAM: ABDOMEN ULTRASOUND HISTORY: Right upper quadrant abdominal pain COMPARISON: Reference is made to CT examination of the abdomen and pelvis dated 08/14/2021 FINDINGS: LIVER: The liver is increased in echogenicity. The main portal vein is patent demonstrating hepatoped al (but phasic) flow. GALLBLADDER: The gallbladder is markedly distended, with multiple echogenic stones No gallbladder wal l thickening or pericholecystic fluid on submitted static imaging. BILE DUCTS: Common bile duct measures 3.83mm. PANCREAS: Limited evaluation of the majority of the pancreas secondary to overlying bowel gas. The main pancreatic duct is described as prominent. Measuring 2.4 mm within the body of the pancreas (may measure up to 3 mm in a patient of this age). IMPRESSION: Cholelithiasis, without ultrasound evidence of cholecystitis. Gallbladder distention not meeting size criteria for hydrops. Reviewed, dictated and finalized at location A. FORMER BACKTENDER
--- NOTE | ~2024-09-13 | CT_ITS ---
CLINICAL INDICATION: Upper abdominal pain COMPARISON: Reference is made to a right upper quadrant ultrasound performed one hour earlier. Comparison is made to CT examination of the abdomen and pelvis dated 08/14/2021. TECHNIQUE: Multiple contiguous axial images of the abdomen and pelvis were performed following the ad ministration of with 100 mL Omnipaque-350 intravenous contrast The dose-length product (DLP) was 551.55 mGy-cm. Automated exposure control and iterative reconstruction technique were employed. FINDINGS/OBSERVATIONS: Visualized lower thorax: The bilateral lung bases are clear. The heart is of normal size, without pericardial effusion. Moderate hiatal hernia is redemonstrated. Liver: The liver enhances homogeneously and is not enlarged, measuring 17 cm in longitudinal dimension Gallbladder and biliary system: The gallbladder is distended, and otherwise unremarkable. No calcified stones are identified on CT ex amination. Pancreas: The pancreas enhances homogeneously without ductal dilatation. Spleen: The spleen enhances homogeneously and is not enlarged measuring 10 cm in longitudinal dimension. Kidneys: The bilateral kidneys enhance symmetrically without hydronephrosis or renal calculi. Adrenal glands: Unremarkable. Gastrointestinal tract: Colonic diverticulosis without surrounding inflammatory change. Appendix: The air-filled appendix is of normal caliber (axial series, image 117). Vasculature: Calcified atherosclerotic disease. Lymph nodes: No pathologically enlarged or morphologically suspicious lymph nodes within the retroperitoneum or at the root of the mesentery. Pelvic structures: The bladder is distended, and otherwise unremarkable. The uterus is anteverted and anteflexed, and otherwise unremarkable. Body wall and musculoskeletal: Fixation hardware at the levels of L3, L4 and L5 with postlaminectomy change. IMPRESSION: Moderate hiatal hernia is redemonstrated. Gallbladder distention without additional abnormality detected via CT. Reviewed, dictated and finalized at location A. INT SORTER
[2024-09-13 19:59] VITALS: BP 147/88; PULSE 67; RESP 17; TEMP 36.4; O2SAT 99
--- NOTE | 2024-09-13 20:40 | ED_ITS ---
HPI - General Adult General Chief complaint: Abdominal Pain <Tim Llamas MD - Last Filed: 09/13/24 21:40> Stated complaint: N/V-abd pain since 1400-poss food poisoning <Tim Llamas MD - Last Filed: 09/13/24 21:40> Time Seen by Provider: 09/13/24 20:25 <Tim Llamas MD - Last Filed: 09/13/24 21:40> History of Present Illness HPI narrative: Patient is a 69-year-old female who presents emergency department chief complaint of abdominal pain. Patient reports he had chicken salad earlier today and then 2 hours later started having pain in her epigastric and right upper quadrant pain the patient does report that she has prior history of hiatal hernia reports that she has had nausea vomiting no diarrhea. The patient reports she had prior surgical history significant for a umbilical hernia repair the patient reports she still has her gallbladder <Tim Llamas MD - Last Filed: 09/13/24 21:40> Related Data Home medications: Home Medications ?Medication ?Instructions ?Recorded ?Confirmed ?Last Taken ?Type cholecalciferol (vitamin D3) 10 10 mcg PO WEEKLY 10/28/20 04/10/22 Unknown History mcg (400 unit) capsule diltiazem HCl 300 mg 300 mg PO DAILY 10/28/20 04/10/22 Unknown History capsule,extended release 24 hr doxazosin 4 mg tablet 10 mg PO HS 10/28/20 04/10/22 Unknown History folic acid 1 mg tablet 1 mg PO DAILY 10/28/20 04/10/22 Unknown History infliximab 100 mg intravenous 800 mg IV ONCE 10/28/20 04/10/22 Unknown History solution (Remicade) methotrexate sodium 2.5 mg tablet 25 mg PO WEEKLY 10/28/20 09/13/24 09/13/24 History omeprazole 20 mg capsule,delayed 20 mg PO DAILY 10/28/20 09/13/24 Unknown History release quinapril 40 mg tablet 40 mg PO DAILY 10/28/20 04/10/22 Unknown History torsemide 10 mg tablet 10 mg PO QAM 10/28/20 04/10/22 Unknown History tramadol 50 mg tablet 50 mg PO Q6H PRN Pain 10/28/20 04/10/22 Unknown History zolpidem 10 mg tablet 10 mg PO QHS PRN Insomnia 10/28/20 04/10/22 Unknown History baclofen 10 mg tablet 10 mg PO TID 10/07/21 09/13/24 09/13/24 History pregabalin 50 mg capsule (Lyrica) 50 mg PO QID 10/07/21 09/13/24 09/13/24 History albuterol sulfate 90 mcg/actuation 2 puff inhalation QID PRN 02/16/22 09/13/24 Unknown History aerosol inhaler Shortness Of Breath celecoxib 200 mg capsule (Celebrex) 200 mg PO BID PRN Pain 02/16/22 04/10/22 Unknown History apixaban 2.5 mg tablet (Eliquis) mg 09/13/24 09/13/24 History fluticasone 500 mcg-salmeterol 50 inhalation 09/13/24 Unknown History mcg/dose blistr powdr for inhalation potassium chloride 8 mEq meq PO 09/13/24 Unknown History tablet,extended release <Tim Llamas MD - Last Filed: 09/13/24 21:40> Allergies/adverse reactions: Allergies Allergy/AdvReac Type Severity Reaction Status Date / Time doxycycline Allergy Unknown Nausea Verified 09/13/24 19:58 <Tim Llamas MD - Last Filed: 09/13/24 21:40> Review of Systems 2 Review of Systems: A 10 system review of systems was completed on the patient and is negative except for what is stated in the HPI. Nursing and ancillary documentation was reviewed. <Tim Llamas MD - Last Filed: 09/13/24 21:40> [facility] Past Medical History Medical History: Medical History BMI 45.0-49.9, adult Neurosarcoidosis in adult Rheumatoid arthritis GERD (gastroesophageal reflux disease) Hypertension JEROME (obstructive sleep apnea) Asthma History of blood clots March 2019 <Tim Llamas MD - Last Filed: 09/13/24 21:40> Surgical History Surgical History: Surgical History H/O umbilical hernia repair Lap incarcerated umbilical hernia repair w/ mesh, Da Dusty assisted on 02/24 History of endoscopy History of delivery History of sinus surgery <Tim Llamas MD - Last Filed: 09/13/24 21:40> Family History Family History: Family History Mother Ovarian cancer Hypertension Unknown Hypertension Cancer <Tim Llamas MD - Last Filed: 09/13/24 21:40> Social History Social History: Social History Smoking status: Never smoker Alcohol intake: current Drinks per week: 2 Alcohol use details: social Substance use: never Substance use type: does not use Living arrangements: with family Occupation/Education: occupation Additional occupation/education comments: [employer] Spiritual care concerns: No <Tim Llamas MD - Last Filed: 09/13/24 21:40> Exam 2 Narrative: GENERAL: Well-appearing, well-nourished, and in no acute distress. HEAD: Normocephalic, atraumatic. EYES: PERRLA and EOMI. ENT: Nares clear, no rhinorrhea or epistaxis. Mucous membranes moist. NECK: Supple. CHEST: Clear to auscultation. No respiratory distress. HEART: Regular rate and rhythm. No murmur heard. Normal peripheral pulses. ABDOMEN: Soft, tenderness to palpation the epigastric and right upper quadrant, nondistended, normal active bowel sounds. EXTREMITIES: Normal range of motion. No edema. SKIN: Warm, dry, no rash. NEURO: No focal deficits. Alert and oriented x3. PSYCH: Normal mood and affect. <Tim Llamas MD - Last Filed: 09/13/24 21:40> Course Vital Signs Vital signs: Vital Signs Temperature 97.5 F L 09/13/24 19:59 Pulse Rate 67 09/13/24 19:59 Respiratory Rate 17 09/13/24 19:59 Blood Pressure 147/88 H 09/13/24 19:59 Pulse Oximetry 99 09/13/24 19:59 Oxygen Delivery Room Air 09/13/24 19:59 Temperature 97.5 F L 09/13/24 19:59 Pulse Rate 89 09/13/24 23:15 Respiratory Rate 15 09/13/24 23:15 Blood Pressure 148/60 H 09/13/24 23:15 Pulse Oximetry 100 09/13/24 23:15 Oxygen Delivery Room Air 09/13/24 19:59 <Tim Llamas MD - Last Filed: 09/13/24 21:40> Vital Signs Temperature 97.5 F L 09/13/24 19:59 Pulse Rate 67 09/13/24 19:59 Respiratory Rate 17 09/13/24 19:59 Blood Pressure 147/88 H 09/13/24 19:59 Pulse Oximetry 99 09/13/24 19:59 Oxygen Delivery Room Air 09/13/24 19:59 Temperature 97.5 F L 09/13/24 19:59 Pulse Rate 89 09/13/24 23:15 Respiratory Rate 15 09/13/24 23:15 Blood Pressure 148/60 H 09/13/24 23:15 Pulse Oximetry 100 09/13/24 23:15 Oxygen Delivery Room Air 09/13/24 19:59 <Sean García MD - Last Filed: 09/14/24 02:29> Medical Decision Making MDM Narrative Medical decision making narrative: Differential diagnosis includes ACS, intra-abdominal infection, pancreatitis, cholecystitis, cholelithiasis, biliary colic Laboratory studies were obtained on the patient showed a CBC with white count 8.8 hemoglobin is 13.6 electrolytes showed a potassium of 2.8 this is being actively placed AST was 56 ALT was 53 bilirubin is 1.1 lipase was normal at 238 Cholelithiasis, without ultrasound evidence of cholecystitis. Gallbladder distention not meeting size criteria for hydrops. <Tim Llamas MD - Last Filed: 09/13/24 21:40> Differential diagnosis includes ACS, intra-abdominal infection, pancreatitis, cholecystitis, cholelithiasis, biliary colic Laboratory studies were obtained on the patient showed a CBC with white count 8.8 hemoglobin is 13.6 electrolytes showed a potassium of 2.8 this is being actively placed AST was 56 ALT was 53 bilirubin is 1.1 lipase was normal at 238 Cholelithiasis, without ultrasound evidence of cholecystitis. Gallbladder distention not meeting size criteria for hydrops. Rickir: Patient was signed out to me pending CT abdomen pelvis with IV contrast. EKG was obtained and bony interpreted by me normal sinus rhythm at a rate of 64 beats per minute, no evidence of acute ischemia. EKG currently pending official cardiology read. Troponin was also obtained and noted to be negative. Patient was noted to have a low potassium of 2.8 and was administered 20 mEq of IV potassium. At this time, patient states that she is able to tolerate p.o. intake and 40 mEq of oral potassium was ordered. CT obtained and pulmonary interpreted by me revealing: Moderate hiatal hernia is redemonstrated. Gallbladder distention without additional abnormality detected via CT. Patient was informed of these findings at bedside and she will need to follow-up with general as her symptoms are likely due to biliary colic. No evidence of acute cholecystitis. Patient symptoms have improved since she arrived to the emergency department and is currently resting comfortably. She was instructed to follow up with the general surgeon she was provided with today within the next 3-5 days and return to the emergency department if any new or worsening symptoms develop. She was provided with strict return precautions and instructed on maintaining a low-fat diet as fatty greasy food will precipitate biliary colic and patient is agreeable with this plan. She was discharged in stable condition. <Sean García MD - Last Filed: 09/14/24 02:29> Vital Signs Vital Signs: Vital Signs Temperature 97.5 F L 09/13/24 19:59 Pulse Rate 67 09/13/24 19:59 Respiratory Rate 17 09/13/24 19:59 Blood Pressure 147/88 H 09/13/24 19:59 Pulse Oximetry 99 09/13/24 19:59 Oxygen Delivery Room Air 09/13/24 19:59 Temperature 97.5 F L 09/13/24 19:59 Pulse Rate 89 09/13/24 23:15 Respiratory Rate 15 09/13/24 23:15 Blood Pressure 148/60 H 09/13/24 23:15 Pulse Oximetry 100 09/13/24 23:15 Oxygen Delivery Room Air 09/13/24 19:59 <Tim Llamas MD - Last Filed: 09/13/24 21:40> Vital Signs Temperature 97.5 F L 09/13/24 19:59 Pulse Rate 67 09/13/24 19:59 Respiratory Rate 17 09/13/24 19:59 Blood Pressure 147/88 H 09/13/24 19:59 Pulse Oximetry 99 09/13/24 19:59 Oxygen Delivery Room Air 09/13/24 19:59 Temperature 97.5 F L 09/13/24 19:59 Pulse Rate 89 09/13/24 23:15 Respiratory Rate 15 09/13/24 23:15 Blood Pressure 148/60 H 09/13/24 23:15 Pulse Oximetry 100 09/13/24 23:15 Oxygen Delivery Room Air 09/13/24 19:59 <Sean García MD - Last Filed: 09/14/24 02:29> Lab Data Result diagrams: 09/13/24 20:31 09/13/24 20:31 <Tim Llamas MD - Last Filed: 09/13/24 21:40> Labs: Lab Results 09/13/24 09/13/24 Range/Units 20:31 21:43 WBC 8.8 (4.5-10.0) K/mm3 RBC 4.21 (4.2-5.4) M/mm3 Hgb 13.6 (12.0-15.0) g/dL Hct 38.7 (37.0-47.0) % MCV 91.9 (80-100) fl MCH 32.3 (26-34) pg MCHC 35.1 (32-36) g/dl RDW 13.8 (11.5-14.5) % Plt Count 283 (150-375) k/mm3 MPV 9.4 (7.4-10.4) fl Immature Gran % (Auto) 0.3 (0-0.5) % Neut % (Auto) 89.1 H (45.5-73.1) % Lymph % (Auto) 6.8 L (18.3-44.2) % [place] % (Auto) 3.0 (2.6-8.5) % Eos % (Auto) 0.6 (0-4.4) % Baso % (Auto) 0.2 (0.2-1.2) % Lymph # (Auto) 0.60 L (0.9-3.2) K/mm3 [place] # (Auto) 0.3 (0.1-0.6) K/mm3 Eos # (Auto) 0.1 (0-0.3) K/mm3 Baso # (Auto) 0.0 (0.0-0.1) K/mm3 Abs Immat Gran (auto) 0.03 (0.00-0.031) K/mm3 Absolute Neuts (auto) 7.8 H (1.3-6.7) K/mm3 Absolute Nucleated RBC 0.000 (0.0-0.012) K/mm3 Nucleated RBC % 0.0 (0.0-0.2) % PT 16.0 H (11.1-14.7) Seconds INR 1.3 APTT 34.8 (22.3-36.8) Seconds Sodium 139 (137-145) mmol/L Potassium 2.8 L* (3.4-5.0) mmol/L Chloride 97 L (98-107) mmol/L Carbon Dioxide 30 (22-30) mmol/L Anion Gap 12 (4-12) mmol/L BUN 23 H (7-17) mg/dL Creatinine 0.94 (0.7-1.0) mg/dL Estim Creat Clear Calc 50 ml/min Estimated GFR 59 (59 - ) Glucose 145 H (65-110) mg/dL Lactic Acid 2.3 H (0.7-2.0) mmol/L Calcium 9.5 (8.4-10.2) mg/dL Magnesium 1.9 (1.6-2.3) mg/dL Total Bilirubin 1.1 (0.2-1.3) mg/dL AST 56 H (14-36) U/L ALT 53 H (6-35) U/L Alkaline Phosphatase 82 (38-126) U/L Troponin I < 0.012 (0.000-0.034) ng/mL Total Protein 8.0 (6.3-8.2) g/dL Albumin 4.6 (3.5-5.1) g/dL Lipase 231 (23-300) U/L Urine Color Yellow (Yellow) Urine Appearance Clear (Clear) Urine pH 7.0 (5.0-9.0) Ur Specific [place] 1.011 (1.001-1.035) Urine Protein Negative (Negative) mg/dL Urine Glucose (UA) Negative (Negative) mg/dL Urine Ketones 1+ H (Negative) mg/dL Ur Blood (Man) Negative (Negative) Urine Nitrate Negative (Negative) Urine Bilirubin Negative (Negative) Urine Urobilinogen 0.2 (<2.0) mg/dL Leukocyte Esterase Rfl Trace H (Negative) ATTILA/UL Urine RBC 0-2 (0-2) /hpf Urine WBC 0-5 (0-3) /hpf Ur Squamous Epith Cells None seen (Few) /hpf Urine Bacteria None seen /hpf Urine Casts 0-2 <Tim Llamas MD - Last Filed: 09/13/24 21:40> Lab Results 09/13/24 09/13/24 Range/Units 20:31 21:43 WBC 8.8 (4.5-10.0) K/mm3 RBC 4.21 (4.2-5.4) M/mm3 Hgb 13.6 (12.0-15.0) g/dL Hct 38.7 (37.0-47.0) % MCV 91.9 (80-100) fl MCH 32.3 (26-34) pg MCHC 35.1 (32-36) g/dl RDW 13.8 (11.5-14.5) % Plt Count 283 (150-375) k/mm3 MPV 9.4 (7.4-10.4) fl Immature Gran % (Auto) 0.3 (0-0.5) % Neut % (Auto) 89.1 H (45.5-73.1) % Lymph % (Auto) 6.8 L (18.3-44.2) % [place] % (Auto) 3.0 (2.6-8.5) % Eos % (Auto) 0.6 (0-4.4) % Baso % (Auto) 0.2 (0.2-1.2) % Lymph # (Auto) 0.60 L (0.9-3.2) K/mm3 [place] # (Auto) 0.3 (0.1-0.6) K/mm3 Eos # (Auto) 0.1 (0-0.3) K/mm3 Baso # (Auto) 0.0 (0.0-0.1) K/mm3 Abs Immat Gran (auto) 0.03 (0.00-0.031) K/mm3 Absolute Neuts (auto) 7.8 H (1.3-6.7) K/mm3 Absolute Nucleated RBC 0.000 (0.0-0.012) K/mm3 Nucleated RBC % 0.0 (0.0-0.2) % PT 16.0 H (11.1-14.7) Seconds INR 1.3 APTT 34.8 (22.3-36.8) Seconds Sodium 139 (137-145) mmol/L Potassium 2.8 L* (3.4-5.0) mmol/L Chloride 97 L (98-107) mmol/L Carbon Dioxide 30 (22-30) mmol/L Anion Gap 12 (4-12) mmol/L BUN 23 H (7-17) mg/dL Creatinine 0.94 (0.7-1.0) mg/dL Estim Creat Clear Calc 50 ml/min Estimated GFR 59 (59 - ) Glucose 145 H (65-110) mg/dL Lactic Acid 2.3 H (0.7-2.0) mmol/L Calcium 9.5 (8.4-10.2) mg/dL Magnesium 1.9 (1.6-2.3) mg/dL Total Bilirubin 1.1 (0.2-1.3) mg/dL AST 56 H (14-36) U/L ALT 53 H (6-35) U/L Alkaline Phosphatase 82 (38-126) U/L Troponin I < 0.012 (0.000-0.034) ng/mL Total Protein 8.0 (6.3-8.2) g/dL Albumin 4.6 (3.5-5.1) g/dL Lipase 231 (23-300) U/L Urine Color Yellow (Yellow) Urine Appearance Clear (Clear) Urine pH 7.0 (5.0-9.0) Ur Specific [place] 1.011 (1.001-1.035) Urine Protein Negative (Negative) mg/dL Urine Glucose (UA) Negative (Negative) mg/dL Urine Ketones 1+ H (Negative) mg/dL Ur Blood (Man) Negative (Negative) Urine Nitrate Negative (Negative) Urine Bilirubin Negative (Negative) Urine Urobilinogen 0.2 (<2.0) mg/dL Leukocyte Esterase Rfl Trace H (Negative) ATTILA/UL Urine RBC 0-2 (0-2) /hpf Urine WBC 0-5 (0-3) /hpf Ur Squamous Epith Cells None seen (Few) /hpf Urine Bacteria None seen /hpf Urine Casts 0-2 <eSan García MD - Last Filed: 09/14/24 02:29> Discharge Plan Discharge Clinical Impression: Abdominal pain, Acute hypokalemia, Biliary colic <Tim Llamas MD - Last Filed: 09/13/24 21:40> Patient Disposition: Home, Self-Care <Tim Llamas MD - Last Filed: 09/13/24 21:40> Condition: Improved <Tim Llamas MD - Last Filed: 09/13/24 21:40> Instructions: Antibiotic Form, Biliary Colic (ED), Gallstones (ED), Hypokalemia (ED) <Tim Llamas MD - Last Filed: 09/13/24 21:40> Additional Instructions: Please follow-up with the general surgeon you were provided with today, call tomorrow to set up a follow-up appointment to be seen within the next days. Return to the emergency department if any new or worsening symptoms develop. A potassium level was low today and was replaced, however, need to have your blood work we checked by your primary care physician to make sure your potassium level is back within normal limits. <Tim Llamas MD - Last Filed: 09/13/24 21:40> Patient Language: Malay <Tim Llamas MD - Last Filed: 09/13/24 21:40> Prescriptions: No Action Remicade 100 mg recon soln 800 mg IV ONCE Patient Comments: EVERY 8 WEEKS - LAST DOSE 02/09/22 omeprazole 20 mg capsule,delayed release(DR/EC) 20 mg PO DAILY quinapril 40 mg tablet 40 mg PO DAILY diltiazem HCl 300 mg capsule,extended release 24hr 300 mg PO DAILY doxazosin 4 mg tablet 10 mg PO HS torsemide 10 mg tablet 10 mg PO QAM methotrexate sodium 2.5 mg tablet 25 mg PO WEEKLY Patient Comments: TAKES ON WEDNESDAY folic acid 1 mg tablet 1 mg PO DAILY zolpidem 10 mg tablet 10 mg PO QHS PRN (Reason: Insomnia) cholecalciferol (vitamin D3) 10 mcg (400 unit) capsule 10 mcg PO WEEKLY tramadol 50 mg tablet 50 mg PO Q6H PRN (Reason: Pain) potassium chloride 8 mEq tablet extended release PO fluticasone propion-salmeterol 500-50 mcg/dose blister with device INHALATION Eliquis 2.5 mg tablet baclofen 10 mg Tablet 10 mg PO TID pregabalin [Lyrica] 50 mg Capsule 50 mg PO QID celecoxib [Celebrex] 200 mg Capsule 200 mg PO BID PRN (Reason: Pain) albuterol sulfate 90 mcg/actuation Hfa Aerosol Inhaler 2 puff INHALATION QID PRN (Reason: Shortness Of Breath) <Tim Llamas MD - Last Filed: 09/13/24 21:40> Follow-up/Referrals: Susana,Kiana Stewart MD [Primary Care Provider] - 1 Week Oc Esqueda MD [Physician] - 3 Days <Tim Llamas MD - Last Filed: 09/13/24 21:40> Time of Disposition: 22:26 <Tim Llamas MD - Last Filed: 09/13/24 21:40> 22:26 <Sean García MD - Last Filed: 09/14/24 02:29>
[2024-09-13 20:42] LABS: Basophils Percent Auto 0.2 % (0.2-1.2); Eosinophils Absolute Auto 0.1 K/mm3 (0-0.3); Eosinophils Percent Auto 0.6 % (0-4.4); Hematocrit 38.7 % (37.0-47.0); Hemoglobin 13.6 g/dL (12.0-15.0); Immature Granulocyte Absolute 0.03 K/mm3 (0.00-0.031); Immature Granulocyte Percent A 0.3 % (0-0.5); Lymphocytes Percent Auto 6.8 % (18.3-44.2); Mean Corpuscular HGB Conc 35.1 g/dl (32-36); Mean Corpuscular Hemoglobin 32.3 pg (26-34); Mean Corpuscular Volume 91.9 fl (80-100); Mean Platelet Volume 9.4 fl (7.4-10.4); Monocytes Absolute Auto 0.3 K/mm3 (0.1-0.6); Neutrophils Absolute Auto 7.8 K/mm3 (1.3-6.7); Neutrophils Percent Auto 89.1 % (45.5-73.1); Platelet Count Result 283 k/mm3 (150-375); Red Blood Count 4.21 M/mm3 (4.2-5.4); Red Cell Distribution Width 13.8 % (11.5-14.5); White Blood Count 8.8 K/mm3 (4.5-10.0)
[2024-09-13] MEDS: SODIUM CHLORIDE 0.9% IV 1,000 ML 999 ML IV CONT ×2 (20:53→21:37)
[2024-09-13] MEDS: ONDANSETRON INJ 4 MG/2 ML VIAL IV PUSH ×2 (20:54→22:16)
[2024-09-13] MEDS: MORPHINE SULFATE (*CRX) 4 MG/ML INJ IV PUSH ×2 (20:54→22:16)
[2024-09-13] MEDS: PANTOPRAZOLE SODIUM IV 40 MG VIAL IV PUSH (20:54)
[2024-09-13 20:56] LABS: INR 1.3; Partial Thromboplastin Time 34.8 Seconds (22.3-36.8)
[2024-09-13 20:57] LABS: Alanine Aminotransferase 53 U/L (6-35); Albumin Level 4.6 g/dL (3.5-5.1); Alkaline Phosphatase 82 U/L (38-126); Anion Gap 12 mmol/L (4-12); Aspartate Amino Transferase 56 U/L (14-36); Bilirubin,Total 1.1 mg/dL (0.2-1.3); Blood Urea Nitrogen 23 mg/dL (7-17); Calcium 9.5 mg/dL (8.4-10.2); Carbon Dioxide 30 mmol/L (22-30); Chloride 97 mmol/L (98-107); Estimated CRCL calculation 50 ml/min; Estimated Glomerular Filt Rate 59; Glucose 145 mg/dL (65-110); Lipase 231 U/L (23-300); Potassium 2.8 mmol/L (3.4-5.0); Sodium 139 mmol/L (137-145)
[2024-09-13] MEDS: KCL 20 MEQ/SW 100 ML 100 ML 50 MEQ IVPB (21:36)
[2024-09-13 21:40] LABS: Magnesium 1.9 mg/dL (1.6-2.3)
[2024-09-13 21:53] LABS: Troponin I < 0.012 ng/mL (0.000-0.034)
[2024-09-13 21:57] LABS: Add Urine Microscopic? YES; Appearance Urine Clear (Clear); Bacteria Urine None Seen /hpf; Bilirubin Urine Negative (Negative); Blood Urine Negative (Negative); Color Urine Yellow (Yellow); Glucose Urine UA Negative (Negative); Ketones Urine 1+ mg/dL (Negative); Leukocyte Esterase Ur Trace LEU/UL (Negative); Nitrate Urine Negative (Negative); Non Pathogenic Casts 0-2; Protein Urine Negative (Negative); RBC Urine 0-2 /hpf (0-2); Specific Grav Ur 1.011 (1.001-1.035); Squamous Epithelial Cell Urine None Seen /hpf (Few); Urobilinogen Urine 0.2 mg/dL (<2.0); WBC Urine 0-5 /hpf (0-3)
[2024-09-13 21:59] LABS: Lactic Acid Reflex 2.3 mmol/L (0.7-2.0)
[2024-09-13] MEDS: DICYCLOMINE HCL INJ 20 MG/2 ML VIAL IM (22:15)
[2024-09-13] MEDS: POTASSIUM CHLORIDE 20 MEQ PACKET (FOR LIQUID) 40 MEQ PO (22:42)
[2024-09-13 23:15] VITALS: BP 148/60; PULSE 89; RESP 15; O2SAT 100
[2024-09-14 00:48] LABS: Reflex Lactic Acid Yes or No Add Lactic
--- OUTSIDE RECORDS SUMMARY | 2024-09-15 03:39 | XMS_ITS | Encounter Summary ---
Author Organization [facility] Address [address] [place] [address] Care Team Providers Care Brick Grader Name Role Phone Kiana Meza MD Primary Care Provider Roseline Francis MD, Brian Kruger Unavailable + Marline Cuenca MD PhD Unavailable Elie Maguire MD Unavailable [phone] Justina Bower MD Unavailable Misha Kirby MD Unavailable Alejandro Martinez MD Unavailable Unavailabl e Encounter Details Date Type Department Care Team (Late st Contact Info) Description 03/29/2023 Telephone [facility] [place] [facility] [address] [facility] [address] [place], [place] [id number] Justina Bower MD [address] [facility] [phone] [place], [place] [id number] Social History Tobacco Use Types Packs/Day Years Used Date Smoking Tobacco: Never Smokeless Tobacco: Never Alcohol Use Standard Drinks/Week Comments Yes 2 (1 standard drink = 0.6 oz pur e alcohol) AUDIT-C Answer Date Recorded Q1: How often do you have a drink containing alc ohol? Never 01/11/2023 Average Number of Drinks Not on file 023 Frequency of Binge Drinking Not on file 12/22 Hunger Vital Sign Answer Date Recorded Within the past 12 months, y ou worried that your food would run out before you got the money to buy more. Never true 03/26/20 23 Within the past 12 months, t he food you bought just didn't last and you didn't have money to get more. Never true 03/26/2023 Comments No Sex and Gender Information Value Date Recorded Sex Assigned at Not on file Legal Sex Female 6:49 PM [employer] Gender Identity Not on file Sexual Orientation Not on file documented as of this encounter Plan of Treatment Not on file documented as of this encounter Goals Goal Patient Goal Type Associated Problems Recent Progress Patient-Stated? Author CCM Chronic Pain Care Plan Chronic Care Management On track(2022 10:37 AM CDT) No Susan Almaraz RN Note: Problem: Chronic Pain Goals: 1. Minimize further functional decline 2. Maximize quality of life 3. Control pain Strategies: - Activity/exercise program recommendation - Conservative stepwise pain medicine strategy with multi-disciplinary approach - Recommend healthy lifestyle strategies and compensatory methods as needed documented as of this encounter Visit Diagnoses Not on filedocumented in this encounter Care Teams Brick Grader Relationship Specialty Start Date End Date Kiana Meza MD [address] [place] [address] [place] [address] PCP - General Rheumatology 03/30/19 Brian Dukes Jr., MD [address] [place] [address] Consulting Physician Neurology 05/02/20 Marline Cuenca MD PhD [address] [place] [address] Consulting Physician Ophthalmology 05/02/20 05/08/24 Elie Maguire MD [address] [place] [address] Consulting Physician Pulmonary Disease 10/24/21 Justina Bower MD [address] [facility] [address] [facility] [place] [phone] [place] [address] Consulting Physician Pain Management 10/24/21 05/08/24 Misha Kirby MD [address] [place] [address] Consulting Physician Ophthalmology 05/09/24 Alejandro Martinez MD [address] [facility] [address] [place] [address] Referring Physician Neurology 05/09/24 documented as of this encounter
--- OUTSIDE RECORDS SUMMARY | 2024-09-15 03:39 | XMS_ITS | Clinical Summary ---
Author Organization [facility] Address [address] [place] [address]. [place], [place] [id number] [place] [id number] Care Team Providers Care Animal Doctor Name Role Phone Kiana Meza MD Primary Care Provider [phone] Social History Tobacco Use Types Packs/Day Years Used Date Smoking Tobacco: Never Assessed Comments Unknown Sex and Gender Information Value Date Recorded Sex Assigned at Not on file Legal Sex Female 7:35 PM CDT Gender Identity Not on file Sexual Orientation Not on file Plan of Treatment Health Maintenance Due Date Last Done Comments Colorectal Cancer Screening Colonoscopy (10 Years) 1957 Hepatitis C 1975 DTaP, Tdap and Td Vaccines (1 - Tdap) 1976 Mammogram Screening 1997 Pneumococcal Vaccine: 65+ Years (1 of 1 - PCV) 2022 Zoster Vaccines (2 of 2) 06/08/2023 04/13/2023 COVID-19 Vaccine ( season) 2024 06/16/2023, 07/23/2021, 11/12/2020, Additional history exists Influenza Adult (#1) 2024 06/10/2019 Dexa Scan (General) Completed 12/16/2020 RSV Immunization or 60+ Years Completed 06/16/2023 Meningococcal Vaccine Aged Out No dillon jody eligible based on patient's age to complete this topic RSV Immunizations Under 20 Months Aged Out No longer eligible based on patient's age to complete this topic Insurance [facility] Care Teams Animal Doctor Relationship Specialty Start Date End Date Kiana Meza MD [address] [place] [address] PCP - General INTERNAL MEDICINE 12/30/23
--- OUTSIDE RECORDS SUMMARY | 2024-09-15 03:39 | XMS_ITS | Encounter Summary ---
Author Organization [facility] Address [address] [place] [address] Care Team Providers Care Design Engineer Marine Equipment Name Role Phone Kiana Meza MD Primary Care Provider Roseline Francis MD, Brian Kruger Unavailable + Marline Cuenca MD PhD Unavailable Elie Maguire MD Unavailable [phone] Justina Bower MD Unavailable [phone] Misha Kirby MD Unavailable Alejandro Martinez MD Unavailable Unavailabl e Encounter Details Date Type Department Care Team (Late st Contact Info) Description 02/04/2023 Telephone [facility] [address] [facility] [address] [place], [place] [id number] Justina Bower MD [address] [facility] [phone] [place], [place] [id number] Social History Tobacco Use Types Packs/Day Years [...] of Binge Drinking Not on file 12/22 Comments No Sex and Gender Information Value Date Recorded Sex Assigned at Not on file Legal Sex Female 6:49 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 Author CCM Chronic Pain Care Plan Chronic Care Management On track(2022 10:37 AM CDT) No Susan Almaraz, TARUN Note: Problem: Chronic Pain Goals: 1. Minimize further functional decline 2. Maximize quality of life 3. Control pain Strategies: - Activity/exercise program recommendation - Conservative stepwise pain medicine strategy with multi-disciplinary approach - Recommend healthy lifestyle strategies and compensatory methods as needed documented as of this encounter Visit Diagnoses Not on filedocumented in this encounter Care Teams Design Engineer Marine Equipment Relationship Specialty Start Date End Date Kiana Meza MD [address] [place] [address] [address] [place] [address] PCP - General Rheumatology 03/30/19 Brian Dukes Jr., MD [address] [place] [address] Consulting Physician Neurology 05/02/20 Marline Cuenca MD PhD [address] [place] [address] Consulting Physician Ophthalmology 05/02/20 05/08/24 Elie Maguire MD [address] [place] [address] Consulting Physician Pulmonary Disease 10/24/21 Justina Bower MD [phone] [place] [address] Consulting Physician Pain Management 10/24/21 05/08/24 Misha Kirby MD [facility] [place] [address] Consulting Physician Ophthalmology 05/09/24 Alejandro Martinez MD [address] [address] Referring Physician Neurology 05/09/24 documented as of this encounter
--- OUTSIDE RECORDS SUMMARY | 2024-09-15 03:39 | XMS_ITS | Referral Summary ---
Author Organization [facility] [place] [address] Address [address] [place] [address] Care Team Providers Care Admission Liaison Name Role Phone Kiana Meza MD Primary Care Provider Roseline Francis MD, Brian Kruger Unavailable + Elie Maguire MD Unavailable Misha Kirby MD Unavailable Alejandro Martinez MD Unavailable Unavailabl e Encounters Date Type Department Care Team Description 07/14/2024 10:00 AM REHABILITATION MEDICINE PHYSICIAN Office Visit [facility] Neurology [address] [facility] 6[address] [place] [address] [place] [address] Alejandro Martinez MD Neurosarcoidosis (Primary Dx); Rheumatoid arthritis, involving unspecified site, unspecified whether rheumatoid factor present (HCC) from Last 3 Months Allergies Active Allergy Reactions Criticality Noted Date Comments Doxycycline Nausea & Vomiting Low 10/09/2022 Medications fluticasone propionate (FLONASE) 50 mcg/actuation nasal sprayIndication s:Allergic Rhinitis Administer 1 spray into each nostril as needed 09/25/19 20 Active omeprazole (PriLOSEC) 40 mg capsuleIndicati ons:Stress Ulcer Prophylaxis Take 1 capsule (40 mg total) by mouth every morning 10/11/19 20 Active traMADoL (ULTRAM) 50 mg tabletIndicatio ns:Pain Take 2 tablets (100 mg total) by mouth as needed 11/29/19 20 Active zolpidem (AMBIEN) 10 mg tabletIndicatio ns:Sleep-Onset Insomnia Take 1 tablet (10 mg total) by mouth nightly 11/29/19 20 Active infliximab-axxq 100 mg recon solnIndications :sarcoidosis Infuse 70 mL (700 mg total) into a venous catheter every 8 (eight) weeks 04/10/20 20 Active torsemide (DEMADEX) 10 mg tabletIndicatio ns:Edema,hypert ension Take 1 tablet (10 mg total) by mouth every morning 05/02/20 20 Active folic acid/multivit-m in/lutein (CENTRUM SILVER ORAL)Indication s:supplement Take 1 tablet by mouth as needed Active ergocalciferol (VITAMIN D) 50,000 unit capsule Take 1 capsule (50,000 Units total) by mouth once a week Every Wednesday09/04/19 21 Active methotrexate 2.5 mg tablet Take 10 tablets (25 mg total) by mouth every 7 days Every wednesday03/11/20 21 Active Advair Diskus 500-50 mcg/dose diskus inhaler 10/05/19 23 Active potassium chloride ER 8 mEq CR tablet TAKE 2 TABLETS BY MOUTH 3 TIMES A DAY WITH MEALS 01/06/20 23 Active metOLazone (ZAROXOLYN) 2.5 mg tablet TAKE 1 TABLET BY MOUTH ON WEDNESDAY, WEDNESDAY, AND Wednesday03/28/20 23 Active baclofen (LIORESAL) 10 mg tablet Take 1 tablet (10 mg total) by mouth 4 (four) times a day 360 tablet 3 07/09/20 23 Active imiquimod (ALDARA) 5 % cream 09/21/19 24 Active Eliquis 2.5 mg tablet Take 1 tablet (2.5 mg total) by mouth 2 (two) times a day 07/29/20 23 Active Mounjaro 12.5 mg/0.5 mL pen injector 12.5 MG UNDER SKIN WEEKLY 09/08/19 24 Active pregabalin (LYRICA) 50 mg capsule TAKE 1 CAPSULE BY MOUTH TWICE A DAY AND 2 CAPSULES BY MOUTH AT BEDTIME 120 capsule 3 11/29/19 24 Active erythromycin (ILOTYCIN) ophthalmic ointmentIndicat ions:Punctate keratitis of both eyes Apply a 1-2mm strip along both lids before bed 3.5 g 11 12/17/19 24 Active folic acid (FOLVITE) 1 mg tablet TAKE 1 TABLET BY MOUTH EVERY DAY 90 tablet 3 04/21/20 24 Active albuterol HFA (PROVENTIL HFA,VENTOLIN HFA,PROAIR HFA) 90 mcg/actuation inhaler 2 puff(s), Inhalation, [id number], PRN, 6.7 each, 2, 2, NEEDED FOR SHORTNESS OF BREATH, 17, Route to Pharmacy Electronically, [facility]/pharmacy #[id number], [id number] , 159, cm, 01/12/24 14:16:00 CDT, Height, 78.5, kg, 03/08/24 8:24:00 CDT, Weight 03/08/20 24 Active levocetirizine (XYZAL) 5 mg tablet 1 tablet (5 mg total) 11/01/19 24 Active ibandronate (BONIVA) 150 mg tablet TAKE 1 TABLET BY MOUTH ONCE MONTHY 03/28/20 24 Active budesonide (RHINOCORT AQUA) 32 mcg/actuation nasal spray 2 spray(s), Nasal, daily, 27 mL, [place], 6, 6, Route to Pharmacy Electronically, [facility]/pharmacy #[id number], [id number] , 160, cm, 09/07/23 14:38:00 REHABILITATION MEDICINE PHYSICIAN, Height, 90.3, kg, 11/01/23 13:59:00 CDT, Weight 11/10/19 24 Active azelastine (ASTELIN) 137 mcg (0.1 %) nasal spray Administer into each nostril 2 (two) times a day Active Mounjaro 15 mg/0.5 mL pen injector INJECT 15MG SUBCUTANEOUSLY ONCE WEEKLY 03/28/20 24 Active Active Problems Problem Noted Date Diagnosed Date Type 2 diabetes mellitus 05/08/2024 Sarcoidosis of lymph nodes 05/08/2024 JEROME (obstructive sleep apnea) 05/08/2024 Restless legs syndrome 05/08/2024 Osteoarthritis of left knee 12/27/2023 Osteoarthritis of right knee 12/27/2023 Left posterior capsular opacification 12/17/2023 Assessment & Plan (03/17/2024 10:15 PM CDT): Still has an attachment of the capsular remnant today. Will complete capsulotomy today. She has some corneal epithelial irregularity that is suggestive that she may have had some epitheliopathy that was likley contributing to her decreased vision. I expect this will improve. Assessment & Plan (03/01/2024 1:54 PM CDT): Even though her vision is 20/20, she is noticing a film over her vision. Discussed capsulotomy, performed OD without complications Assessment & Plan (01/01/2024 11:40 AM CDT): Even though her vision is 20/20, she is noticing a film over her vision. Discussed capsulotomy, she is unable to stay for this today but we will get this next visit. Assessment & Plan (12/17/2023 9:14 AM CDT): Reassess vision once ocular surface improves, discussed possibility for YAG in the near future Spondylosis of lumbar region without myelopathy or radiculopathy 03/26/2023 Lumbar stenosis with neurogenic claudication 11/2021 Osteoarthritis of spine with radiculopathy, lumb ar region 11/24/2021 Rheumatoid arthritis 10/21/2021 Sacral back pain 09/23/2021 Sacroiliac joint dysfunction 09/15/2021 Pseudophakia of both eyes 07/14/2020 Overview (07/14/2020): Cataract surgery -10/2019 Assessment & Plan (05/28/2024 7:00 AM CDT): Doing well after YAG capsulotomy, vision improved Assessment & Plan (06/18/2023 11:20 AM CDT): Very mild PCO in each eye patient visually function adequately, monitor. 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 Return for baseline visual field, OCT optic nerve and macula with ganglion cell analysis. 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 Dr. Frances did not think there was any evidence of TILE DECORATOR vasculitis. Labs Neg RPR, , histo, blasto, toxo IgG/M, TSPOT, ANASTACIO <5, VIRGINIE 1:160, DIOR, MPO, PR3, MOG, NMO slightly low IgG2 MRI 11/2019 on my review shows poorly enhancing opacification of Rt>Lt sphenoid and part of cavernous sinus, small Lt maxillary opacity. PET scan shows multiple active LN Ddx includes: relentless placoid chorioretinitis (also call ampiginious choroiditis), as it appears more severe and persistent than APMPPE, or other placoid chorioretinitis. Infectious etiology unlikely given negative syphilis testing. Underlying diagnosis is most likely sarcoidosis, CVID Sarcoidosis- biopsy 06/2019- rare non-caseating granulomas with area of sclerosis, this was diagnosed after she had PE, off Eliquis since 09/22/2019 She had PFT and was not treated for sarcoidosis.follow-up CT shows no change in LN. Assessment & Plan (05/28/2024 7:00 AM CDT): She has no active inflammation today. Continue infliximab and methotrexate per pulmonology. It sounds like her pulmonary disease is more active than her uveitis. Assessment & Plan (03/17/2024 10:07 PM CDT): She has no active inflammation today. Continue infliximab and methotrexate per pulmonology. Assessment & Plan (03/01/2024 1:54 PM CDT): She has no active inflammation today, imaging with stable scars from 11/2019. Continue infliximab and methotrexate per pulmonology. Assessment & Plan (01/01/2024 11:35 AM CDT): She has no active inflammation today, imaging with stable scars from 11/2019. She has had recent activity from her pulmonary sarcoidosis. Treatment of this will likely be adequate for the eyes. Continue infliximab and methotrexate per pulmonology. Assessment & Plan (12/17/2023 9:12 AM CDT): Brief lapse in immunotherapy Recommend follow up with Dr. Kirby with fluorescein angiography (FA) A/c quiet, minimal vitreous cell right eye (OD)>OS Assessment & Plan (06/18/2023 11:21 AM CDT): No posterior inflammation. Stable focal areas of atrophy compared to previous photos. Reassured patient, monitor. Return immediately with any new flashes floaters or changes in vision. Continue on current immunosuppressive therapy Assessment & Plan (03/16/2023 10:26 AM CDT): Choroiditis is quiet today, in remission with no new lesions Uveitis has been in remission since at least 09/2020 after Ozurdex OD 12/04/19, OS 01/18/20 Remicade now at 800mg [id number] On MTX 15mg weekly due to Plan Discussed that her ocular inflammation has been fairly easy to treat and has remained in remission for the past 2-3 years. OK to reduce her IMT from uveitis perspective, but will leave the call to Dr Dukes as the neurologic disease has been the most challenging to treat If her uveitis flares, we would plan to use intraocular steroid again. Dr. Maguire is her current bioinformaticist Dr. Kiana Meza is primer assembler Dr. Dukes is neurologist Assessment & Plan (10/30/2022 8:42 AM REHABILITATION MEDICINE PHYSICIAN): Choroiditis is quiet today, in remission with no new lesions Ozurdex OD 12/04/19, OS 01/18/20 Remicade now at 800mg [id number] Off MTX due to low WBC and sinus infection Plan Discussed that her ocular inflammation has been fairly easy to treat and has remained in remission for the past nearly 3 years. OK to reduce her IMT from uveitis perspective, however the neurologic/pulmonary components of her disease may still need treatment. If her uveitis flares, we would plan to use intraocular steroid again. Dr. Maguire is her current bioinformaticist Dr. Kiana Meza is primer assembler Dr. Dukes is neurologist Assessment & Plan (08/07/2022 8:25 AM REHABILITATION MEDICINE PHYSICIAN): Ozurdex OD 12/04/19, OS 01/18/20 Remicade now at 800mg [id number] Choroiditis is quiet today, in remission with no new lesions Plan Continue MTX 25mg weekly, FA 1mg daily Continue infliximab 800mg q8w. Alternatives include MMF at full uveitis dose 1.5g BID. alternative anti-TNF agent, Humira, Cimzia, Simponi Dr. Maguire is her current bioinformaticist Kiana Meza is primer assembler Dr. Gomez is neurologist Assessment & Plan (05/15/2022 8:34 AM CDT): Ozurdex OD 12/04/19, OS 01/18/20 Remicade now at 800mg [id number] this resumed and increased from 700mg q8w after she recovered from a bout of leukopenia and sinusitis infliximab level 03/17/21 was 5.9 on Choroiditis is quiet today, in remission with no new lesions Plan Continue MTX 25mg weekly, FA 1mg daily Continue infliximab 800mg q8w.. Alternatives include MMF at full uveitis dose 1.5g BID. alternative anti-TNF agent, Humira, Cimzia, Simponi Dr. Maguire is her current bioinformaticist Kiana Meza is primer assembler Dr. Gomez is neurologist Assessment & Plan (01/16/2022 9:16 AM CDT): Ozurdex OD 12/04/19, OS 01/18/20 Remicade now at 800mg [id number] this resumed and increased from 700mg q8w after she recovered from a bout of leukopenia and sinusitis infliximab level 03/17/21 was 5.9 on Choroiditis is quiet today, in remission with no new lesions Plan Continue MTX 25mg weekly, FA 1mg daily Continue infliximab 800mg q8w.. Alternatives include MMF at full uveitis dose 1.5g BID. alternative anti-TNF agent, David Peacock, Simponi Dr. Maguire is her current bioinformaticist Kiana Meza is primer assembler Dr. Gomez is neurologist Assessment & Plan (10/24/2021 9:14 AM REHABILITATION MEDICINE PHYSICIAN): Had Ozurdex OD 12/04/19, OS 01/18/20 Remicade 700mg [id number] (5mg/kg actual weight, probably more like 7mg/kg adjusted) infliximab level 03/17/21 was 5.9 Choroiditis is quiet today, in remission with no new lesions Plan Continue MTX 25mg weekly, FA 1mg daily Continue infliximab Alternatives include MMF at full uveitis dose 1.5g BID. alternative anti-TNF agent, Heriberto Peacocka, Simponi Dr. Maguire is her current bioinformaticist Kiana Meza is primer assembler Dr. Gomez is neurologist Assessment & Plan (07/25/2021 8:51 AM REHABILITATION MEDICINE PHYSICIAN): Had Ozurdex OD 12/04/19, OS 01/18/20 Remicade 700mg [id number] (5mg/kg actual weight, probably more like 7mg/kg adjusted) infliximab level 03/17/21 was 5.9 Inflammation is quiet today with no new lesions Plan Continue MTX 25mg weekly, FA 1mg daily Continue infliximab Alternatives include MMF at full uveitis dose 1.5g BID. alternative anti-TNF agent, Heriberto Peacocka, Simponi Dr. Maguire is her current bioinformaticist Kiana Meza is primer assembler Dr. Gomez is neurologist Assessment & Plan (04/21/2021 8:31 AM CDT): Had Ozurdex OD 12/04/19, OS 01/18/20 Remicade 700mg [id number] (5mg/kg actual weight, probably more like 7mg/kg adjusted) Adalimumab level 03/17/21 was 5.9 Inflammation is quiet today with no new lesions But it sounds like her systemic disease is active Plan Continue MTX 25mg weekly, FA 1mg daily Continue infliximab, consider dose increase for suspected persistent neurosarcoidosis based on Dr. Dukes's note. *she is on omeprazole which may increase her MTX levels, will watch LFTs Alternatives include MMF at full uveitis dose 1.5g BID. alternative anti-TNF agent, David Peacock Simponi Bobby Shah was bioinformaticist Kiana Meza is primer assembler Dr. Gomez is neurologist Assessment & Plan (01/13/2021 9:54 AM CDT): Had Ozurdex OD 12/04/19, OS 01/18/20 Inflammation is quiet today with no new lesions Plan Continue MTX 25mg weekly, FA 1mg daily Continue infliximab Dr. Dukes is tapering prednisone [place]ler grid provided previously *she is on omeprazole which may increase her MTX levels, will watch LFTs Alternatives include MMF at full uveitis dose 1.5g BID. alternative anti-TNF agent, David Peacock is bioinformaticist Kiana Meza is primer assembler Dr. Gomez is neurologist Assessment & Plan (10/18/2020 8:18 AM REHABILITATION MEDICINE PHYSICIAN): Had Ozurdex OD 12/04/19, OS 01/18/20 Inflammation is quiet today with no new lesions Plan Continue MTX 25mg weekly, FA 1mg daily Continue infliximab OK from my perspective to stop prednisone, Dr. Dukes can decide on taper. [place]ler grid provided previously *she is on omeprazole which may increase her MTX levels, will watch LFTs Alternatives include MMF at full uveitis dose 1.5g BID. alternative anti-TNF agent, David Peacock is bioinformaticist Kiana eMza is primer assembler Dr. Gomez is neurologist Assessment & Plan (07/14/2020 10:53 PM REHABILITATION MEDICINE PHYSICIAN): Ozurdex sample OD 12/04/19, OS 01/18/20 Lab Results Component Value Date WBC 4.7 05/11/2020 HGB 12.0 05/11/2020 LABPLAT 231 05/11/2020 CREATININE 0.96 07/12/2020 AST 18 05/11/2020 ALT 21 05/11/2020 Repeat LP on higher dose MTX was paucicellular with rare B cells, no evidence of malignancy, nml glucose and protein Inflammation is quiet today with no new lesions Plan Continue MTX 25mg weekly, FA 1mg daily And infliximab Hold prednisone at 10mg for now, plan taper after infliximab if team is on board.- Dr. Dukes can decide on taper. Amsler grid provided previously *she is on omeprazole which may increase her MTX levels, will watch LFTs Alternatives include MMF at full uveitis dose 1.5g BID. alternative anti-TNF agent, David Peacock is bioinformaticist Kiana Meza is primer assembler Dr. Gomez is neurologist Assessment & Plan (05/27/2020 1:07 PM CDT): Maintain scheduled FUV with Dr. Cuenca. Assessment & Plan (04/25/2020 1:43 PM CDT): Current ocular medications MTX 10 tablets weekly FA 1 mg daily Prednisone 10 mg daily Remicade infusion x2 Ozurdex sample OD 12/04/19, OS 01/18/20 Lab Results Component Value Date WBC 8.3 01/23/2020 HGB 12.4 01/23/2020 LABPLAT 228 01/23/2020 CREATININE 0.92 01/23/2020 AST 26 01/23/2020 ALT 32 01/23/2020 ROS: did well after 2 remicade infusions, still having paresthesias, joints still hurt, back maybe better, no fevers, chills, respiratory, GI complaints. Getting LP with Dr. Dukes next weeek Inflammation is quiet today with no new lesions Plan Continue MTX 25mg weekly, FA 1mg daily And infliximab Hold prednisone at 10mg for now, plan taper after infliximab if team is on board.- Dr. Dukes can decide on taper. Amsler grid provided previously *she is on omeprazole which may increase her MTX levels, will watch LFTs Alternatives include MMF at full uveitis dose 1.5g BID. alternative anti-TNF agent, David Peacock is bioinformaticist Kiana Meza is primer assembler Dr. Gomez is neurologist Assessment & Plan (03/21/2020 8:57 AM CDT): Current ocular medications MTX 25 mg weekly 1mg daily FA Enbrel weekly waiting for infliximab approval Pred 10 mg every day po Ozurdex sample OD 12/04/19, OS 01/18/20 Lab Results Component Value Date WBC 8.3 01/23/2020 HGB 12.4 01/23/2020 LABPLAT 228 01/23/2020 CREATININE 0.92 01/23/2020 AST 26 01/23/2020 ALT 32 01/23/2020 ROS: paresthesias worsening, joints OK, no fevers, chills, respiratory, GI complaints. Saw Dr. Dukes in neurology, recommended starting infliximab and getting repeat MRI Inflammation is significantly improved with no new lesions, sl variable appearance to old lesions OD, ?early activity Plan Continue MTX to 25mg weekly Start infliximab Hold prednisone at 10mg for now, plan taper after infliximab if team is on board. Amsler grid provided today *she is on omeprazole which may increase her MTX levels, will watch LFTs Alternatives include MMF at full uveitis dose 1.5g BID. Would also consider switching to alternative anti-TNF agent, will await neurology input Daniel Reynoso is bioinformaticist Kiana Meza is primer assembler Dr. Gomez is neurologist Assessment & Plan (01/18/2020 5:23 PM CDT): Current ocular medications MTX 25 mg weekly 1mg daily FA Enbrel weekly for RA Pred 10 mg every day po Ozurdex sample OD 12/04/19 Inflammation is significantly improved OD, worse OS ROS: paresthesias worsening, joints OK, no fevers, chills, respiratory, GI complaints. Saw Dr. Dukes in neurology, working her up for granulomatous disease Plan Ozurdex OS today 01/18/20 Continue MTX to 25mg weekly Hold prednisone at 10mg pending decision from neuroogy, OK to increase this per Dr. Reynoso *she is on omeprazole which may increase her MTX levels, will watch LFTs Will need additional steroid-sparing therapy- would probably advocate increasing MTX to 25mg weekly unless she has contraindications to this. Alternatives include MMF at full uveitis dose 1.5g BID. Would also consider switching to alternative anti-TNF agent, will await neurology input Daniel Reynoso is bioinformaticist Kiana Meza is primer assembler Ron Coats is neurologist (both [facility]) Resolved Problems Problem Noted Date Diagnosed Date Resolved Date Rheumatoid arthritis with rh eumatoid factor, unspecified 05/08/2024 05/08/2024 Thrush 05/08/2024 05/08/2024 Valvular sclerosis 05/08/2024 Cervical spinal stenosis 05/08/2024 Abdominal mass 05/08/2024 05/08/2024 Acute UTI 05/08/2024 05/08/2024 Asthma 05/08/2024 05/08/2024 Chorioretinitis 05/08/2024 05/08/2024 Chronic insomnia 05/08/2024 05/08/2024 DVT of lower limb, acute 05/08/2024 Dyspnea 05/08/2024 05/08/2024 Exogenous obesity 05/08/2024 05/08/2024 Hyperlipidemia 05/08/2024 05/08/2024 Hypertension 05/08/2024 05/08/2024 Lung mass 05/08/2024 05/08/2024 Lymphadenopathy 05/08/2024 05/08/2024 Neck pain 05/08/2024 05/08/2024 Numbness 05/08/2024 05/08/2024 Dry eye syndrome of both eyes 12/17/2023 05/08/2024 Assessment & Plan (03/13/2024 2:32 PM CDT): Mildly symptomatic today. Continue artificial tears as needed. Assessment & Plan (03/01/2024 1:55 PM CDT): Mildly symptomatic today. Continue artificial tears as needed. Punctate keratitis of both eyes 12/17/2023 01/01/2024 Assessment & Plan (12/17/2023 9:13 AM CDT): Recommend PFATs 4 times a day BMI 39.0-39.9,adult 03/26/2023 05/08/20 24 Spinal stenosis of lumbar region 12/23/2022 05/08/2024 BMI 45.0-49.9, adult 05/25/2022 024 BMI 40.0-44.9, adult 09/23/2021 024 Chronic bilateral low back pain 09/15/2021 05/08/2024 Squamous blepharitis of uppe r and lower eyelids of both eyes 10/18/2020 01/01/2024 Assessment & Plan (10/24/2021 9:11 AM REHABILITATION MEDICINE PHYSICIAN): Bilateral Recent symptoms possibly concerning for preseptal cellulitis, but also in the setting of sinusitus No signs of either today, 2 days after finishing cefuroxime. PLAN Lid scrubs tobradex naheed for 1 week Assessment & Plan (10/18/2020 8:16 AM REHABILITATION MEDICINE PHYSICIAN): WC and lid scrubs High risk medication use 10/18/2020 Assessment & Plan (03/16/2023 10:27 AM CDT): Lab Results Component Value Date WBC 5.4 12/30/2022 HGB 12.6 12/30/2022 LABPLAT 316 12/30/2022 CREATININE 0.93 12/30/2022 AST 25 12/30/2022 ALT 20 12/30/2022 She had a few episodes of pancytopenia sinusitis,which improved with abx and therapy hiatus PLAN CBC, CMP q3 months Assessment & Plan (10/30/2022 8:43 AM REHABILITATION MEDICINE PHYSICIAN): Lab Results Component Value Date WBC 7.3 06/05/2022 HGB 12.4 06/05/2022 LABPLAT 243 06/05/2022 CREATININE 0.89 06/05/2022 CREATININE 0.93 06/05/2022 AST 27 06/05/2022 AST 23 06/05/2022 ALT 26 06/05/2022 ALT 26 06/05/2022 She had pancytopenia Sep 2021 and was also treated for sinusitis, this has recurred exactly one year later and her MTX was paused. She is recovering on oral antibiotics. PLAN CBC, CMP q3 months Assessment & Plan (08/07/2022 8:26 AM REHABILITATION MEDICINE PHYSICIAN): Lab Results Component Value Date WBC 7.3 06/05/2022 HGB 12.4 06/05/2022 LABPLAT 243 06/05/2022 CREATININE 0.89 06/05/2022 CREATININE 0.93 06/05/2022 AST 27 06/05/2022 AST 23 06/05/2022 ALT 26 06/05/2022 ALT 26 06/05/2022 She had pancytopenia Sep 2021 and was also treated for sinusitis Now back on therapy and doing well without evidence of systemic or ocular toxicity from her immunosupression PLAN CBC, CMP q3 months Done last month per patient. Will request lab report from Dr. Meza Assessment & Plan (05/15/2022 8:38 AM CDT): Lab Results Component Value Date WBC 10.2 (H) 10/24/2021 HGB 12.0 10/24/2021 LABPLAT 199 10/24/2021 CREATININE 0.80 11/19/2021 AST 25 10/24/2021 ALT 23 10/24/2021 She had pancytopenia Sep 2021, improved with holding MTX Was also treated for sinusitis, cefuroxime for about 15 days Now back on therapy PLAN CBC, CMP q3 months Done last month per patient. Will request lab report from Dr. Meza Assessment & Plan (01/16/2022 8:40 AM CDT): Lab Results Component Value Date WBC 10.2 (H) 10/24/2021 HGB 12.0 10/24/2021 LABPLAT 199 10/24/2021 CREATININE 0.80 11/19/2021 AST 25 10/24/2021 ALT 23 10/24/2021 She had pancytopenia Sep 2021, improved with holding MTX Was also treated for sinusitis, cefuroxime for about 15 days Now back on therapy PLAN CBC, CMP q3 months Assessment & Plan (10/24/2021 9:07 AM REHABILITATION MEDICINE PHYSICIAN): Lab Results Component Value Date WBC 6.1 10/09/2021 HGB 12.4 10/09/2021 LABPLAT 170 10/09/2021 CREATININE 0.83 09/30/2021 AST 17 09/30/2021 ALT 15 09/30/2021 She had pancytopenia last month, improved with holding MTX Was also treated for sinusitis, cefuroxime for about 15 days , finished 2 days ago PLAN CBC, CMP q3 months Assessment & Plan (07/24/2021 12:08 PM REHABILITATION MEDICINE PHYSICIAN): Lab Results Component Value Date WBC 6.3 05/28/2021 HGB 13.4 05/28/2021 LABPLAT 246 05/28/2021 CREATININE 0.98 05/28/2021 AST 14 05/28/2021 ALT 18 05/28/2021 [facility] labs 09/18/20 CBC and CMP are normal PLAN CBC, CMP q3 months Assessment & Plan (04/21/2021 7:41 AM CDT): Lab Results Component Value Date WBC 7.7 03/06/2021 HGB 14.5 03/06/2021 LABPLAT 236 03/06/2021 CREATININE 0.91 03/06/2021 AST 18 03/06/2021 ALT 19 03/06/2021 [facility] 09/18/20 CBC and CMP are normal PLAN CBC,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
--- OUTSIDE RECORDS SUMMARY | 2024-09-15 03:39 | XMS_ITS | Encounter Summary ---
Author Organization [facility] Healthcare Address [address] [place] [address] Care Team Providers Care Silver Service Waiter Name Role Phone Kiana Meza MD Primary Care Provider Roseline Francis MD, Brian Kruger Unavailable + Marline Cuenca MD PhD Unavailable [phone] Elie Maguire MD Unavailable Justina Bower MD Unavailable Misha Kirby MD Unavailable [phone] Alejandro Martinez MD Unavailable Unavailabl e Encounter Details Date Type Department Care Team (Late st Contact Info) Description 11/18/2021 Documentation [facility] Operating Room [address] [place] [id number] Ramona Santiago, RN Social History Tobacco Use Types Packs/Day Years Used Date Smoking Tobacco: Never Smokeless Tobacco: Never Alcohol Use Standard Drinks/Week Comments Yes 2 (1 standard drink = 0.6 oz pur e alcohol) AUDIT-C Answer Date Recorded Q1: How often do you have a drink containing alc ohol? 2-3 times a week 11/11/2021 Q2: How many drinks containi ng alcohol do you have on a typical day when you are drinking? 1 or 2 11/11/2021 Q3: How often do you have si x or more drinks on one occasion? 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 Gender Identity Not on file Sexual Orientation [...] on filedocumented in this encounter Care Teams Silver Service Waiter Relationship Specialty Start Date End Date Kiana Meza MD [address] [place] [address] DR BARCLAY [address] [place] [id number] PCP - General Rheumatology 03/30/19 Brian Dukes Jr., MD [address] [place] [address] Consulting Physician Neurology 05/02/20 Marline Cuenca MD PhD [address] [place] [address] Consulting Physician Ophthalmology 05/02/20 05/08/24 Elie Maguire MD [address] [place] [address] Consulting Physician Pulmonary Disease 10/24/21 Justina Bower MD [phone] [place] [address] Consulting Physician Pain Management 10/24/21 05/08/24 Misha Kirby MD [facility] [place] [address] Consulting Physician Ophthalmology 05/09/24 [place] [address] [place] [address] Referring Physician Neurology 05/09/24 documented as of this encounter
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
--- OUTSIDE RECORDS SUMMARY | 2024-09-15 03:39 | XMS_ITS | Encounter Summary ---
Author Organization [facility] Healthcare Address [address] [place] [address] Care Team Providers Care Lining Sewer Name Role Phone Kiana Meza MD Primary Care Provider Daniel Reynoso MD Unavailable Roseline Francis MD, Steven Richard Unavailable + Marline Cuenca MD PhD Unavailable [phone] Elie Maguire MD Unavailable Justina Bower MD Unavailable Misha Kirby MD Unavailable Alejandro Martinez MD Unavailable Unavailabl e Encounter Details Date Type Department Care Team (Late st Contact Info) Description 09/05/2021 Telephone [facility] Radiology [address] [place] [address] Brian Dukes Jr., MD [address] [facility] [address] [place] [address] Social History Tobacco Use Types Packs/Day Years Used Date Smoking Tobacco: Never Smokeless Tobacco: Never Alcohol Use Standard Drinks/Week Comments Yes 2 (1 standard drink = 0.6 oz pur e alcohol) AUDIT-C Answer Date Recorded Q1: How often do you have a drink containing alc ohol? Monthly or less 09/09/2021 Q2: How many drinks containi ng alcohol do you have on a typical day when you are drinking? 1 or 2 09/09/2021 Q3: How often do you have si x or more drinks on one occasion? 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 Gender Identity Not on file Sexual Orientation Not on file documented as of this encounter Plan of Treatment Not on file documented as of this encounter Visit Diagnoses Not on filedocumented in this encounter Care Teams Lining Sewer Relationship Specialty Start Date End Date Kiana Meza MD [address] [place] [address] PCP - General Rheumatology 03/30/19 Daniel Reynoso MD [address] [place] [address] [address] [place] [address] Consulting Physician Pulmonary Disease 01/18/20 10/23/21 Brian Dukes Jr., MD [address] [place] [address] Consulting Physician Neurology 05/02/20 Marline Cuenca MD PhD [address] [place] [address] Consulting Physician Ophthalmology 05/02/20 05/08/24 Elie Maguire MD [address] [place] [address] Consulting Physician Pulmonary Disease 10/24/21 Justina Bower MD [address] [facility] [address] [facility] [phone] [place] [address] Consulting Physician Pain Management 10/24/21 05/08/24 Misha Kirby MD [place] [address] Consulting Physician Ophthalmology 05/09/24 [place] [address] [place] [address] Referring Physician Neurology 05/09/24 documented as of this encounter
--- OUTSIDE RECORDS SUMMARY | 2024-09-15 03:39 | XMS_ITS | Encounter Summary ---
Author Organization [facility] Healthcare Address [address] [place] [address] Care Team Providers Care Farm Manager Name Role Phone Kiana Meza MD Primary Care Provider [phone] Roseline Francis MD, Brian Kruger Unavailable + Marline Cuenca MD PhD Unavailable Elie Maguire MD Unavailable Justina Bower MD Unavailable Misha Kirby MD Unavailable [phone] Alejandro Martinez MD Unavailable Unavailabl e Encounter Details Date Type Department Care Team (Late st Contact Info) Description 02/08/2023 Orders Only [facility] [place] [facility] [address] [facility] [address] [place] [id number] Susan Almaraz, TARUN Social History Tobacco Use Types Packs/Day Years [...] on file 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 Gender Identity Not on file Sexual Orientation [...] Diagnoses Not on filedocumented in this encounter Orders Medications Ordered That Maciej ht Not Have Been Administered Count Last Ordered Date First Ordered Date BUPivacaine (MARCAINE) 0.5 % (5 mg/mL) preservative free injection 150 mg 1 02/08/2023 lidocaine PF (XYLOCAINE) 10 mg/mL (1 %) preservative free injection 300 mg 1 02/08/2023 documented in this encounter Care Teams Farm Manager Relationship Specialty Start Date End Date Kiana Meza MD [address] [place] [address] [place] [address] PCP - General Rheumatology 03/30/19 Brian Dukes Jr., MD [address] [place] [address] Consulting Physician Neurology 05/02/20 Marline Cuenca MD PhD [address] [place] [address] Consulting Physician Ophthalmology 05/02/20 05/08/24 Elie Maguire MD [address] [place] [address] Consulting Physician Pulmonary Disease 10/24/21 Justina Bower MD [address] [facility] [address] [facility] [id number] [place], [place] [id number] Consulting Physician Pain Management 10/24/21 05/08/24 Misha Kirby MD [address] [place] [address] Consulting Physician Ophthalmology 05/09/24 Alejandro Martinez MD [address] [address] Referring Physician Neurology 05/09/24 documented as of this encounter
== END 2024-09-13 23:16 | disposition home or self-care (01) ==
PROVIDERS: Emergency Medicine; Emergency Provider Emergency Medicine; PCP Internal Medicine Rheumatology
DX: K80.20 Calculus of gallbladder without cholecystitis without obstruction (principal); R10.13 Epigastric pain; E87.6 Hypokalemia; M06.9 Rheumatoid arthritis, unspecified; I10 Essential (primary) hypertension; J45.909 Unspecified asthma, uncomplicated; G47.33 Obstructive sleep apnea (adult) (pediatric); K21.9 Gastro-esophageal reflux disease without esophagitis; D86.89 Sarcoidosis of other sites; K44.9 Diaphragmatic hernia without obstruction or gangrene; Z79.899 Other long term (current) drug therapy; Z79.620 Long term (current) use of immunosuppressive biologic
CPT/HCPCS: 36415; 74177; 76705; 80053; 81001; 83605; 83690; 83735; 84484; 85025; 85610; 85730; 93005; 96365; 96366; 96372; 96375; 96376; 99284; A9270; J0500; J2270; J2405; J2470; J3480; J7030; Q9967

== ENCOUNTER 2024-10-02 08:12 | Outpatient (CLI) | payer MEDICARE, SELFPAY ==
--- OUTSIDE RECORDS SUMMARY | 2024-10-02 08:23 | XMS_ITS | Encounter Summary ---
Author Organization [facility] Healthcare Address [address] [place] [address] Care Team Providers Care Flatbed Stitcher Name Role Phone Kiana Meza MD Primary Care Provider Roseline Francis MD, Brian Kruger Unavailable + Marline Cuenca MD PhD Unavailable Elie Maguire MD Unavailable Justina Bower MD Unavailable Misha Kirby MD Unavailable [phone] Alejandro Martinez MD Unavailable Unavailabl e Encounter Details Date Type Department Care Team (Late st Contact Info) Description 02/08/2023 Orders Only [facility] [place] [facility] [address] [facility] Advanced Medicine [address] [place] [id number] Susan Almaraz, TARUN Social History Tobacco Use [...] on file 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 Gender Identity Not on file Sexual Orientation [...] 02/08/2023 documented in this encounter Care Teams Flatbed Stitcher Relationship Specialty Start Date End Date Kiana Meza MD [address] [place] [address] [place] [address] PCP - General Rheumatology 03/30/19 Brian Dukes Jr., MD [address] [place] [address] Consulting Physician Neurology 05/02/20 Marline Cuenca MD PhD [address] [place] [address] Consulting Physician Ophthalmology 05/02/20 05/08/24 Elie Maguire MD [address] [place] [address] Consulting Physician Pulmonary Disease 10/24/21 Justina Bower MD [address] [facility] [address] [facility] [id number] [place], [place] [id number] Consulting Physician Pain Management 10/24/21 05/08/24 Misha Kirby MD [address] [place] [address] Consulting Physician Ophthalmology 05/09/24 Alejandro Martinez MD [address] [address] Referring Physician Neurology 05/09/24 documented as of this encounter
--- OUTSIDE RECORDS SUMMARY | 2024-10-02 08:23 | XMS_ITS | Encounter Summary ---
Author Organization [facility] Healthcare Address [address] [place] [address] Care Team Providers Care Personal Care Assistant Name Role Phone Kiana Meza MD Primary Care Provider [phone] Roseline Francis MD, Brian Kruger Unavailable + Marline Cuenca MD PhD Unavailable Elie Maguire MD Unavailable Justina Bower MD Unavailable Misha Kirby MD Unavailable Alejandro Martinez MD Unavailable Unavailabl e Encounter Details Date Type Department Care Team (Late st Contact Info) Description 02/04/2023 Telephone [facility] the [place] [facility] [address] [facility] Advanced Medicine [address] [place], [place] [id number] Justina Bower MD [address] [facility] [address] [id number] [place], [place] [id number] Social History Tobacco Use Types Packs/Day Years [...] on file 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 Gender Identity Not on file Sexual Orientation [...] on filedocumented in this encounter Care Teams Personal Care Assistant Relationship Specialty Start Date End Date Kiana Meza MD [address] [place] [address] [address] [place] [address] PCP - General Rheumatology 03/30/19 Brian Dukes Jr., MD [address] [place] [address] Consulting Physician Neurology 05/02/20 Marline Cuenca MD PhD [address] [place] [address] Consulting Physician Ophthalmology 05/02/20 05/08/24 Elie Maguire MD [address] [place] [address] Consulting Physician Pulmonary Disease 10/24/21 Justina Bower MD [address] [id number] [place] [address] Consulting Physician Pain Management 10/24/21 05/08/24 Misha Kirby MD [facility] [place] [place] [address] Consulting Physician Ophthalmology 05/09/24 Alejandro Martinez MD [address] [address] Referring Physician Neurology 05/09/24 documented as of this encounter
--- OUTSIDE RECORDS SUMMARY | 2024-10-02 08:23 | XMS_ITS | Patient Health Record ---
Author Organization [employer] Address [address] [facility]. [address] [place] [id number] Care Team Providers Care Chauf[employer]ur [place] Limousine Name Role Phone Susana APPLE, [place] Primary Care Provider Thuan Lester Unavailable [phone] Reason For Referral No Information Plan Of Treatment No Information Insurance Providers Payer Name Payer Address Payer Phone Subscriber Number Group Number Insured Name Patient Relationship to Insured Coverage Start Date Coverage End Date [facility] Medicare Advantage HMO-POS [address] [address] [place] [id number] Vika Gonzalez Self - patient is the insured
--- OUTSIDE RECORDS SUMMARY | 2024-10-02 08:23 | XMS_ITS | Encounter Summary ---
Author Organization [facility] Healthcare Address [address] [place] [address] Care Team Providers Care Boiler Helper Name Role Phone Kiana Meza MD Primary Care Provider [phone] Roseline Francis MD, Brian Kruger Unavailable + Marline Cuenca MD PhD Unavailable Elie Maguire MD Unavailable Justina Bower MD Unavailable Misha Kirby MD Unavailable [phone] Alejandro Martinez MD Unavailable Unavailabl e Encounter Details Date Type Department Care Team (Late st Contact Info) Description 03/29/2023 Telephone [facility] the [place] [facility] [address] [facility] Advanced Medicine [address] [place], [place] [id number] Justina Bower MD [address] [facility] [id number] [place], [place] [id number] Social History Tobacco Use Types Packs/Day Years [...] on file 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 Author CCM Chronic Pain Care Plan Chronic Care Management On track(2022 10:37 AM CDT) No Suasn Almaraz RN Note: Problem: Chronic Pain Goals: 1. Minimize further functional decline 2. Maximize quality of life 3. Control pain Strategies: - Activity/exercise program recommendation - Conservative stepwise pain medicine strategy with multi-disciplinary approach - Recommend healthy lifestyle strategies and compensatory methods as needed documented as of this encounter Visit Diagnoses Not on filedocumented in this encounter Care Teams Boiler Helper Relationship Specialty Start Date End Date Kiana Meza MD [address] [place] [address] [place] [address] PCP - General Rheumatology 03/30/19 Brian Dukes Jr., MD [address] [place] [address] Consulting Physician Neurology 05/02/20 Marline Cuenca MD PhD [address] [place] [address] Consulting Physician Ophthalmology 05/02/20 05/08/24 Elie Maguire MD [address] [place] [address] Consulting Physician Pulmonary Disease 10/24/21 Justina Bower MD [address] [facility] 14[address] [facility] [phone] [place] [address] Consulting Physician Pain Management 10/24/21 05/08/24 Misha Kirby MD [address] [place] [address] Consulting Physician Ophthalmology 05/09/24 Alejandro Martinez MD [address] [facility] [address] [place] [address] Referring Physician Neurology 05/09/24 documented as of this encounter
--- OUTSIDE RECORDS SUMMARY | 2024-10-02 08:23 | XMS_ITS | Encounter Summary ---
Author Organization [facility] Healthcare Address [address] [place] [address] Care Team Providers Care Fitness Services Manager Name Role Phone Kiana Meza MD Primary Care Provider [phone] Daniel Reynoso MD Unavailable Roseline Francis MD, Steven Richard Unavailable + Marline Cuenca MD PhD Unavailable Elie Maguire MD Unavailable Justina Bower MD Unavailable Misha Kirby MD Unavailable Alejandro Martinez MD Unavailable Unavailabl e Encounter Details Date Type Department Care Team (Late st Contact Info) Description 09/05/2021 Telephone [facility] Radiology [address] [place] [address] Brian Dukes Jr., MD [address] [facility] [address] [place] [address] Social History Tobacco Use Types [...] on file 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 Gender Identity Not on file Sexual Orientation Not on file documented as of this encounter Plan of Treatment Not on file documented as of this encounter Visit Diagnoses Not on filedocumented in this encounter Care Teams Fitness Services Manager Relationship Specialty Start Date End Date Kiana Meza MD [address] [facility] [address] [place] [address] PCP - General Rheumatology 03/30/19 Daniel Reynoso MD [address] [place] [address] [address] [place] [address] Consulting Physician Pulmonary Disease 01/18/20 10/23/21 Brian Dukes Jr., MD [address] [place] [address] Consulting Physician Neurology 05/02/20 Marline Cuenca MD PhD [address] [place] [address] Consulting Physician Ophthalmology 05/02/20 05/08/24 Elie Maguire MD [address] [place] [address] Consulting Physician Pulmonary Disease 10/24/21 Justina Bower MD [address] [facility] 14[address] [facility] [phone] [place] [address] Consulting Physician Pain Management 10/24/21 05/08/24 Misha Kirby MD [facility] [place] [address] Consulting Physician Ophthalmology 05/09/24 [place] [address] [place] [address] Referring Physician Neurology 05/09/24 documented as of this encounter
--- OUTSIDE RECORDS SUMMARY | 2024-10-02 08:23 | XMS_ITS ---
Author Organization [employer] Address [address] [place] [address] [address] [place] [address] Care Team Providers Care Felt Coverer Name Role Phone Susana APPLE, Kiana Primary Care Provider Thuan Lester [facility] [phone] REASON FOR VISIT RUQ pain, gallstones Encounters Encounter Location Date Provider Diagnosis [address] Devries [address] [place] [phone] 09/26/2024 Thuan Amaya Plan Of Treatment No Information Progress Notes * Vika V[birth year]ESDOB:[birth year] (69 yo F)Acc No.[id number]:09/26/2024 Patient: Vika BRITO Provider: Robert Amaya M.D. :1955 A ge:69 Y S ex:Female Date:09/26/2024 Address:[facility] [place], [facility] Pcp:Kiana Meza MD Subjective: * Chief Complaints: * 1 . RUQ pain, gallstones. * Medical History: Objective: * Vitals: Assessment: Plan: * Treatment: * Images: * Electronic signature of Thuan Amaya MD on 10/02/2024 at 08:23 AM DECK MOLDER Sign off status: Pending * Provider: Robert Amaya M.D. Date: 09/26/2024 Generated for Printi ng/Faxing/eTransmitting on: 10/02/2024 08:23 AM DECK MOLDER
--- OUTSIDE RECORDS SUMMARY | 2024-10-02 08:23 | XMS_ITS | Encounter Summary ---
Author Organization [facility] Healthcare Address [address] [place] [address] Care Team Providers Care Rnp Name Role Phone Kiana Meza MD Primary Care Provider [phone] Roseline Francis MD, Brian Kruger Unavailable + Marline Cuenca MD PhD Unavailable [phone] Elie Maguire MD Unavailable Justina Bower MD Unavailable Misha Kirby MD Unavailable [phone] Alejandro Martinez MD Unavailable Unavailabl e Encounter Details Date Type Department Care Team (Late st Contact Info) Description 11/18/2021 Documentation [facility] Operating Room [facility] [place] [address] Ramona Santiago, RN Social History Tobacco Use [...] on file 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 Gender Identity Not on file Sexual Orientation [...] on filedocumented in this encounter Care Teams Rnp Relationship Specialty Start Date End Date Kiana Meza MD [address] [place] [address] [address] [place] [address] PCP - General Rheumatology 03/30/19 Brian Dukes Jr., MD [address] [place] [address] Consulting Physician Neurology 05/02/20 Marline Cuenca MD PhD [address] [place] [address] Consulting Physician Ophthalmology 05/02/20 05/08/24 Elie Maguire MD [address] [place] [address] Consulting Physician Pulmonary Disease 10/24/21 Justina Bower MD [address] [phone] [place] [address] Consulting Physician Pain Management 10/24/21 05/08/24 Misha Kirby MD [facility] [place] [address] Consulting Physician Ophthalmology 05/09/24 [place] [address] [place] [address] Referring Physician Neurology 05/09/24 documented as of this encounter
--- OUTSIDE RECORDS SUMMARY | 2024-10-02 08:24 | XMS_ITS | Clinical Summary ---
Author Organization [facility] [address] Address [address] [place] [address] Care Team Providers Care Escalator Constructor Name Role Phone Kiana Meza MD Primary [...] HFA) 90 mcg/actuation inhaler 2 puff(s), Inhalation, [id number], PRN, 6.7 each, 2, 2, NEEDED FOR SHORTNESS OF BREATH, 17, Route to Pharmacy Electronically, [facility]/pharmacy #[id number], [id number] , 159, cm, 01/12/24 14:16:00 CDT, Height, 78.5, kg, 03/08/24 8:24:00 CDT, Weight 03/08/20 24 Active levocetirizine (XYZAL) 5 mg tablet 1 tablet (5 mg total) 11/01/19 24 Active ibandronate (BONIVA) 150 mg tablet TAKE 1 TABLET BY MOUTH ONCE MONTHY 03/28/20 24 Active budesonide (RHINOCORT AQUA) 32 mcg/actuation nasal spray 2 spray(s), Nasal, daily, 27 mL, [place], 6, 6, Route to Pharmacy Electronically, [facility]/pharmacy #[id number], [id number] , 160, cm, 09/07/23 14:38:00 HOME PARAPROFESSIONAL, Height, 90.3, kg, 11/01/23 13:59:00 CDT, Weight 11/10/19 Active azelastine (ASTELIN) 137 mcg (0.1 %) [...] knee 12/27/2023 Osteoarthritis of right knee 12/27/2023 Dry eye syndrome of both eyes 12/17/2023 Assessment & Plan (09/26/2024 8:05 PM HOME PARAPROFESSIONAL): Minor redness due to allergies per patient. Examination revealed trace punctate epithelial erosions in the right eye and rare punctate epithelial erosions in the left eye, indicating surface disease. - Use artificial tears 3-4 times daily if experiencing gritty feeling or soreness Assessment & Plan (03/13/2024 2:32 PM CDT): Mildly symptomatic today. Continue artificial tears as needed. Assessment & Plan (03/01/2024 1:55 PM CDT): Mildly symptomatic today. Continue artificial tears as needed. 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 Dr. Frances did not think there was any evidence of SEASONAL [place] BUNDLER vasculitis. Labs Neg RPR, , histo, blasto, [...] no change in LN. Assessment & Plan (09/26/2024 8:04 PM HOME PARAPROFESSIONAL): Sarcoidosis affecting the eyes, presenting as multifocal corneitis and epiretinal membrane scarring. No current complaints of floaters or flashes. No active anterior inflammation. OCT and autofluorescence imaging showed no new lesions or damage, indicating stable disease. Emphasized the importance of maintaining the current medication regimen to control inflammation and prevent progression. - Continue infliximab 10 mg/kg every 8 weeks - Continue methotrexate 20 mg once a week - Continue folic acid daily Assessment & Plan (05/28/2024 7:00 AM CDT): [...] 12/04/19, OS 01/18/20 Remicade now at 800mg [id number] On MTX 15mg weekly due to Plan [...] steroid again. Dr. Maguire is her current histotechnologist supervisor Dr. Kiana Meza is senior net application developer Dr. Dukes is neurologist Assessment & Plan (10/30/2022 8:42 AM HOME PARAPROFESSIONAL): Choroiditis is quiet today, in remission with no new lesions Ozurdex OD 12/04/19, OS 01/18/20 Remicade now at 800mg [id number] Off MTX due to low WBC and [...] steroid again. Dr. Maguire is her current histotechnologist supervisor Dr. Kiana Meza is senior net application developer Dr. Dukes is neurologist Assessment & Plan (08/07/2022 8:25 AM HOME PARAPROFESSIONAL): Ozurdex OD 12/04/19, OS 01/18/20 Remicade now at 800mg [id number] Choroiditis is quiet today, in remission with no new lesions Plan Continue MTX 25mg weekly, FA 1mg daily Continue infliximab 800mg q8w. Alternatives include MMF at full uveitis dose 1.5g BID. alternative anti-TNF agent, Humira, Cimzia, Simponi Dr. Maguire is her current histotechnologist supervisor Kiana Meza is senior net application developer Dr. Gomez is neurologist Assessment & Plan (05/15/2022 8:34 AM CDT): Ozurdex OD 12/04/19, OS 01/18/20 Remicade now at 800mg [id number] this resumed and increased from 700mg q8w [...] Cimzia, Simponi Dr. Maguire is her current histotechnologist supervisor Kiana Meza is senior net application developer Dr. Gomez is neurologist Assessment & Plan (01/16/2022 9:16 AM CDT): Ozurdex OD 12/04/19, OS 01/18/20 Remicade now at 800mg [id number] this resumed and increased from 700mg q8w [...] Cimzia, Simponi Dr. Maguire is her current histotechnologist supervisor Kiana Meza is senior net application developer Dr. Gomez is neurologist Assessment & Plan (10/24/2021 9:14 AM HOME PARAPROFESSIONAL): Had Ozurdex OD 12/04/19, OS 01/18/20 Remicade 700mg [id number] (5mg/kg actual weight, probably more like 7mg/kg adjusted) infliximab level 03/17/21 was 5.9 Choroiditis is quiet today, in remission with no new lesions Plan Continue MTX 25mg weekly, FA 1mg daily Continue infliximab Alternatives include MMF at full uveitis dose 1.5g BID. alternative anti-TNF agent, David Peacock Simponi Dr. Anderson is her current histotechnologist supervisor Kiana Meza is senior net application developer Dr. Gomez is neurologist Assessment & Plan (07/25/2021 8:51 AM HOME PARAPROFESSIONAL): Had Ozurdex OD 12/04/19, OS 01/18/20 Remicade 700mg [id number] (5mg/kg actual weight, probably more like 7mg/kg adjusted) infliximab level 03/17/21 was 5.9 Inflammation is quiet today with no new lesions Plan Continue MTX 25mg weekly, FA 1mg daily Continue infliximab Alternatives include MMF at full uveitis dose 1.5g BID. alternative anti-TNF agent, David Peacock, Simponi Dr. Maguire is her current histotechnologist supervisor Kiana Meza is senior net application developer Dr. Gomez is neurologist Assessment & Plan (04/21/2021 8:31 AM CDT): Had Ozurdex OD 12/04/19, OS 01/18/20 Remicade 700mg [id number] (5mg/kg actual weight, probably more like 7mg/kg [...] agent, David Peacock Simponi Bobby Shah was histotechnologist supervisor Kiana Meza is senior net application developer Dr. Gomez is neurologist Assessment & Plan [...] BID. alternative anti-TNF agent, David Peacock is histotechnologist supervisor Kiana Meza is senior net application developer Dr. Gomez is neurologist Assessment & Plan (10/18/2020 8:18 AM HOME PARAPROFESSIONAL): Had Ozurdex OD 12/04/19, OS 01/18/20 Inflammation [...] dose 1.5g BID. alternative anti-TNF agent, Ayush, Heribertoa Daniel Reynoso is histotechnologist supervisor Kiana Meza is senior net application developer Dr. Gomez is neurologist Assessment & Plan (07/14/2020 10:53 PM HOME PARAPROFESSIONAL): Ozurdex sample OD 12/04/19, OS 01/18/20 Lab [...] BID. alternative anti-TNF agent, David Peacock is histotechnologist supervisor Kiana Meza is senior net application developer Dr. Gomez is neurologist Assessment & Plan [...] BID. alternative anti-TNF agent, David Peacock is histotechnologist supervisor Kiana Meza is senior net application developer Dr. Gomez is neurologist Assessment & Plan [...] will await neurology input Daniel Reynoso is histotechnologist supervisor Kiana Meza is senior net application developer Dr. Gomez is neurologist Assessment & Plan [...] will await neurology input Daniel Reynoso is histotechnologist supervisor Kiana Meza is senior net application developer Ron Coats is neurologist (both [facility]) Resolved Problems Problem Noted Date Diagnosed Date [...] Neck pain 05/08/2024 05/08/2024 Numbness 05/08/2024 05/08/2024 Left posterior capsular opacification 12/17/2023 09/26/2024 Assessment & Plan (03/17/2024 10:15 PM CDT): [...] possibility for YAG in the near future Punctate keratitis of both eyes 12/17/2023 01/01/2024 [...] 01/01/2024 Assessment & Plan (10/24/2021 9:11 AM HOME PARAPROFESSIONAL): Bilateral Recent symptoms possibly concerning for preseptal cellulitis, but also in the setting of sinusitus No signs of either today, 2 days after finishing cefuroxime. PLAN Lid scrubs tobradex naheed for 1 week Assessment & Plan (10/18/2020 8:16 AM HOME PARAPROFESSIONAL): WC and lid scrubs High risk medication [...] months Assessment & Plan (10/30/2022 8:43 AM HOME PARAPROFESSIONAL): Lab Results Component Value Date WBC 7.3 [...] months Assessment & Plan (08/07/2022 8:26 AM HOME PARAPROFESSIONAL): Lab Results Component Value Date WBC 7.3 [...] months Assessment & Plan (10/24/2021 9:07 AM HOME PARAPROFESSIONAL): Lab Results Component Value Date WBC 6.1 10/09/2021 HGB 12.4 10/09/2021 LABPLAT 170 10/09/2021 CREATININE 0.83 09/30/2021 AST 17 09/30/2021 ALT 15 09/30/2021 She had pancytopenia last month, improved with holding MTX Was also treated for sinusitis, cefuroxime for about 15 days , finished 2 days ago PLAN CBC, CMP q3 months Assessment & Plan (07/24/2021 12:08 PM HOME PARAPROFESSIONAL): Lab Results Component Value Date WBC 6.3 05/28/2021 HGB 13.4 05/28/2021 LABPLAT 246 05/28/2021 CREATININE 0.98 05/28/2021 AST 14 05/28/2021 ALT 18 05/28/2021 [facility] labs 09/18/20 CBC and CMP are normal PLAN CBC, CMP q3 months Assessment & Plan (04/21/2021 7:41 AM CDT): Lab Results Component Value Date WBC 7.7 03/06/2021 HGB 14.5 03/06/2021 LABPLAT 236 03/06/2021 CREATININE 0.91 03/06/2021 AST 18 03/06/2021 ALT 19 03/06/2021 [facility] labs 09/18/20 CBC and CMP are normal PLAN CBC, CMP q3 months Assessment & Plan (01/13/2021 9:55 AM CDT): Lab Results Component Value Date WBC 4.7 05/11/2020 HGB 12.0 05/11/2020 LABPLAT 231 05/11/2020 CREATININE 0.96 07/12/2020 AST 18 05/11/2020 ALT 21 05/11/2020 [facility] labs 09/18/20 CBC and CMP are normal PLAN CBC, CMP q3 months Assessment & Plan (10/18/2020 8:20 AM HOME PARAPROFESSIONAL): Lab Results Component Value Date WBC 4.7 05/11/2020 HGB 12.0 05/11/2020 LABPLAT 231 05/11/2020 CREATININE 0.96 07/12/2020 AST 18 05/11/2020 ALT 21 05/11/2020 [facility] labs 09/18/20 CBC and CMP are normal [...] Encounters Date Type Department Care Team Description 09/25/2024 8:15 AM HOME PARAPROFESSIONAL Office Visit [facility] Ophthalmology [address] [facility] 6th [place] [address] Misha Kirby MD Multifocal choroiditis of both eyes (Primary Dx); Pseudophakia of both eyes; Dry eye syndrome of both eyes 07/14/2024 10:00 AM HOME PARAPROFESSIONAL Office Visit [facility] Neurology [address] [facility] 6th [place] [address] [place] [id number] Alejandro Martinez MD Neurosarcoidosis (Primary Dx); Rheumatoid arthritis, involving unspecified site, unspecified whether rheumatoid factor present (HCC) from Last 3 Months Immunizations Name Administration [...] History Date Comments Hypertension Sarcoidosis Rheumatoid arthritis ([facility]) see m eds Hiatal hernia Pulmonary embolism ([facility]) 2018 DVT (deep venous thrombosis[facility] ([facility]) ([facility]) 201 9 RLE Osteopenia Sleep apnea cpap nightly GERD (gastroesophageal reflux disease) controlled with meds Asthma rarely needs inh aler Chronic pain disorder back and j oints RLS (restless legs syndrome) h/o , improved since Baclofen Low back pain Blood clot in vein High risk medication use 10/18/2020 BMI 40.0-44.9, adult ([facility]) 09/23/2021 BMI 45.0-49.9, adult ([facility]) 05/25/2022 BMI 39.0-39.9,adult 03/26/2023 Dry eye syndrome of both eyes 12/17/2023 Hyperlipidemia 05/08/2024 Acute UTI 05/08/2024 Valvular sclerosis 05/08/2024 Neck pain 05/08/2024 Numbness 05/08/2024 Exogenous obesity 05/08/2024 DVT of lower limb, acute ([facility]) 05/08/2024 Cervical spinal stenosis 05/08/2024 Thrush 05/08/2024 Abdominal mass 05/08/2024 Rheumatoid arthritis with rh eumatoid factor, unspecified ([facility]) 05/08/2024 Chorioretinitis 05/08/2024 Dyspnea 05/08/2024 Chronic insomnia [...] on file Legal Sex Female 6:49 PM HOME PARAPROFESSIONAL Gender Identity Not on file Sexual Orientation Not on file Obstetrics History Last Filed Vital Signs Vital Sign Reading Time Taken Comments Blood Pressure 165/75 07/14/2024 9:32 AM HOME PARAPROFESSIONAL Pulse 65 07/14/2024 9:32 AM HOME PARAPROFESSIONAL Temperature 36.1 C (96.9 F) 05/09/2024 10:48 AM CDT Respiratory Rate 18 05/09/2024 10:48 AM CDT Oxygen Saturation 100% 05/09/2024 10:48 AM CDT Inhaled Oxygen Concentration - - Weight 78 kg (172 lb) 07/14/2024 9:32 AM HOME PARAPROFESSIONAL Height 160 cm (5' 3 ) 07/14/2024 9:32 AM HOME PARAPROFESSIONAL Body Mass Index 30.47 07/14/2024 9:32 AM HOME PARAPROFESSIONAL Plan of Treatment Health Maintenance Due Date [...] On track(2022 10:37 AM CDT) Susan Frias, RN Note: Problem: Chronic Pain Goals: 1. Minimize further functional decline 2. Maximize quality of life 3. Control pain Strategies: - Activity/exercise program recommendation - Conservative stepwise pain medicine strategy with multi-disciplinary approach - Recommend healthy lifestyle strategies and compensatory methods as needed Procedures Procedure Name Priority Date/Time Associated Diagnosis Comments AUTOFLUORESCENCE - OU - BOTH EYES Routine 09/25/2024 9:11 AM HOME PARAPROFESSIONAL Multifocal choroiditis of both eyes OCT, RETINA - OU - BOTH EYES Routine 09/25/2024 9:10 AM HOME PARAPROFESSIONAL Multifocal choroiditis of both eyes COMPREHENSIVE METABOLIC PANEL Routine 03/22/2023 12:26 PM CDT High risk medication use DEXA AXIAL SKELETON BONE DENSITY 1 OR MORE SITES Schedule Routine, Read Routine (OP Routine) 12/16/2020 MAMMOGRAPHY Schedule Routine, Read Routine (OP Routine) 12/16/2020 from Last 3 Months or Most Recently Relevant to Health Maintenance Results * Autofluorescence - OU - Both Eyes (09/25/2024 9:11 AM HOME PARAPROFESSIONAL) Anatomical Region Laterality Modality Head Other Narrative 09/25/2024 9:11 AM HOME PARAPROFESSIONAL Right Eye Progression has been stable. Left Eye Progression has been stable. Notes OD stable appearance of all hyperAF and hypoAF OS stable appearance of all lesions nasal and off inf arcade, none in central macula No new lesions OU Misha Kirby MD OPHTH PHOTOGRAPHY Final Re sult * OCT, Retina - OU - Both Eyes (09/25/2024 9:10 AM HOME PARAPROFESSIONAL) Anatomical Region Laterality Modality Head Optical Coherenc e Tomography Narrative 09/25/2024 9:10 AM HOME PARAPROFESSIONAL Right Eye Quality was good. Scan locations included subfoveal. Progression has been stable. Left Eye Quality was good. Scan locations included subfoveal. Progression has been stable. Notes OU: scattered outer retinal attenuation OU, ERM, few subretinal drusen deposits, stable from prior Misha Kirby MD OPHTH TOMOGRAPHY Final Res ult * (ABNORMAL) Comprehensive metabolic panel (03/22/2023 12:26 PM CDT) Pathologist [facility] Glucose 90 65 - 99 mg/dL [facility] jignesh Anderson Comment: Fasting reference interval BUN 20 7 - 25 mg/dL [facility] [employer] jignesh Anderson Creatinine 0.98 0.50 - 1.05 mg/dL [facility] [employer] jignesh Anderson eGFR 64 > OR = 60 mL/min/1.7 3m2 [employer] jignesh Anderson BUN/creat ratio SEE NOTE: 6 - 22 (calc) [employer] jignesh Anderson Comment: Not Reported: BUN and Creatinine are within reference range. Sodium 139 135 - 146 mmol/L [employer] jignesh Anderson Potassium, pl 3.7 3.5 - 5.3 mmol/L [employer] jignesh Anderson Chloride 95(L) 98 - 110 mmol/L [employer] jignesh Anderson CO2 36(H) 20 - 32 mmol/L [employer] jignesh Anderson Calcium 10.1 8.6 - 10.4 mg/dL [facility] [employer] jignesh Anderson Protein, sr 7.3 6.1 - 8.1 g/dL [employer] jignesh Anderson Albumin 4.4 3.6 - 5.1 g/dL [employer] jignesh Anderson GLOBULIN 2.9 1.9 - 3.7 g/dL (calc) [facility] Anderson Alb/glob ratio 1.5 1.0 - 2.5 (calc) [facility] Bilirubin, total 0.6 0.2 - 1.2 mg/dL [facility] Alk phos 85 37 - 153 U/L [facility] AST 30 10 - 35 U/L [facility] ALT (SGPT) 21 6 - 29 U/L [facility] Blood 03/22/2023 12:2 6 PM CDT 03/22/2023 12:27 PM CDT Marline Cuenca MD PhD LAB BLOOD ORDERABLES Final Result [facility] Anderson [address] [place] [address] * MAMMOGRAPHY (12/16/2020) Anatomical Region Laterality Modality Breast Mammography Historical Provider IMG MAMMO PROCEDURES Patsy l Result * Dexa Axial Skeleton Bone Density 1 or 2 Site (12/16/2020) Anatomical Region Laterality Modality Body N/A Radiographic Rosalina ging Historical Provider IMG DXA PROCEDURES Final Result from Last 3 Months or Most Recently Relevant to Health Maintenance Insurance Shared Performance [employer] [facility] Care Teams Escalator Constructor Relationship Specialty Start Date End Date Kiana Meza MD [address] [place] [address] [place] [address] PCP - General Rheumatology 03/30/19 Brian Dukes Jr., MD [address] [place] [address] Consulting Physician Neurology 05/02/20 Elie Maguire MD [address] [place] [address] Consulting Physician Pulmonary Disease 10/24/21 Misha Kirby MD [facility] [place] [address] Consulting Physician Ophthalmology 05/09/24 [place] [address] [place] [id number] Referring Physician Neurology 05/09/24
--- OUTSIDE RECORDS SUMMARY | 2024-10-02 08:24 | XMS_ITS | Clinical Summary ---
Author Organization [facility] Address [facility] [place] [address] Care Team Providers Care Custom Feed Mill Operator Helper Name Role Phone Kiana Meza MD Primary Care Provider [phone] Encounters Date Type Department Care Team Description 09/28/2024 8:16 AM TIE SAWYER - 09/28/2024 11:59 PM TIE SAWYER Hospital Encounter [facility] [place] [address] Missy Holden MD Discharge Disposition: Home or Self Care (Routine Discharge) 09/28/2024 Travel from Last 3 Months Social History Tobacco Use Types Packs/Day Years Used Date Smoking Tobacco: Never Assessed Comments Unknown Sex and Gender Information Value Date Recorded Sex Assigned at Female 09/28/2024 8:15 AM TIE SAWYER Legal Sex Female 7:35 PM CDT Gender Identity Not on file Sexual Orientation Not on file Plan of Treatment Health Maintenance Due Date Last Done Comments Colorectal Cancer Screening Colonoscopy (10 Years) 1957 Hepatitis C 1975 DTaP, Tdap and Td Vaccines (1 - Tdap) 1976 Mammogram Screening 1997 Pneumococcal Vaccine: 65+ Years (2 of 2 - PCV) 2022 08/29/2020 Zoster Vaccines (2 of 2) 06/08/2023 04/13/2023 Dexa Scan (General) Completed 12/16/2020 RSV Immunization or 60+ Years Completed 06/16/2023, 06/16/2023 COVID-19 Vaccine Completed 05/15/2024, , 06/16/2023, Additional history exists Influenza Adult Completed 05/15/2024, 100 12/2019, 06/10/2019, Additional history exists Meningococcal B Vaccine Aged Out No l onger eligible based on patient's age to complete this topic Meningococcal Vaccine Aged Out No dillon jody eligible based on patient's age to complete this topic RSV Immunizations Under 20 Months Aged Out No longer eligible based on patient's age to complete this topic Insurance [facility] Care Teams Custom Feed Mill Operator Helper Relationship Specialty Start Date End Date Kiana Meza MD [address] [facility] [address] [place] [id number] PCP - General INTERNAL MEDICINE 12/30/23
--- OUTSIDE RECORDS SUMMARY | 2024-10-02 08:24 | XMS_ITS | Referral Summary ---
Author Organization [facility] [address] Address [address] [place] [address] Care Team Providers Care Card Maker Name Role Phone Kiana Meza MD Primary Care Provider [phone] Roseline Francis MD, Brian Kruger Unavailable + Elie Maguire MD Unavailable [phone] Misha Kirby MD Unavailable [phone] Alejandro Martinez MD Unavailable Unavailabl e Encounters Date Type Department Care Team Description 09/25/2024 8:15 AM MARKETING OFFICER Office Visit [facility] Ophthalmology [address] [facility] 6th [place] [address] Misha Kirby MD Multifocal choroiditis of both eyes (Primary Dx); Pseudophakia of both eyes; Dry eye syndrome of both eyes 07/14/2024 10:00 AM MARKETING OFFICER Office Visit [facility] Neurology [address] [facility] Medicine 6th [place] [address] [place] [id number] Alejandro Martinez MD Neurosarcoidosis (Primary Dx); Rheumatoid [...] HFA) 90 mcg/actuation inhaler 2 puff(s), Inhalation, [id number], PRN, 6.7 each, 2, 2, NEEDED FOR SHORTNESS OF BREATH, 17, Route to Pharmacy Electronically, [facility]/pharmacy #[id number], [id number] , 159, cm, 01/12/24 14:16:00 CDT, Height, 78.5, kg, 03/08/24 8:24:00 CDT, Weight 03/08/20 24 Active levocetirizine (XYZAL) 5 mg tablet 1 tablet (5 mg total) 11/01/19 24 Active ibandronate (BONIVA) 150 mg tablet TAKE 1 TABLET BY MOUTH ONCE MONTHY 03/28/20 24 Active budesonide (RHINOCORT AQUA) 32 mcg/actuation nasal spray 2 spray(s), Nasal, daily, 27 mL, [place], 6, 6, Route to Pharmacy Electronically, [facility]/pharmacy #[id number], [id number] , 160, cm, 09/07/23 14:38:00 MARKETING OFFICER, Height, 90.3, kg, 11/01/23 13:59:00 CDT, Weight 11/10/19 24 Active azelastine (ASTELIN) 137 mcg (0.1 %) nasal spray Administer into each nostril 2 (two) times a day Active Mounjaro 15 mg/0.5 mL pen injector INJECT 15MG SUBCUTANEOUSLY ONCE WEEKLY 03/28/20 Active Active Problems Problem Noted Date Diagnosed Date Type 2 diabetes mellitus 05/08/2024 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 Dr. Frances did not think there was any evidence of INTEGRITY ANALYST vasculitis. Labs Neg RPR, , histo, blasto, [...] LN. Assessment & Plan (09/26/2024 8:04 PM MARKETING OFFICER): Sarcoidosis affecting the eyes, presenting as multifocal [...] 12/04/19, OS 01/18/20 Remicade now at 800mg [id number] On MTX 15mg weekly due to Plan [...] steroid again. Dr. Maguire is her current dry wall finisher Dr. Kiana Meza is user interface artist Dr. Dukes is neurologist Assessment & Plan (10/30/2022 8:42 AM MARKETING OFFICER): Choroiditis is quiet today, in remission with no new lesions Ozurdex OD 12/04/19, OS 01/18/20 Remicade now at 800mg s3lbsas Off MTX due to low WBC and [...] steroid again. Dr. Maguire is her current dry wall finisher Dr. Kiana Meza is user interface artist Dr. Dukes is neurologist Assessment & Plan (08/07/2022 8:25 AM MARKETING OFFICER): Ozurdex OD 12/04/19, OS 01/18/20 Remicade now at 800mg [id number] Choroiditis is quiet today, in remission with no new lesions Plan Continue MTX 25mg weekly, FA 1mg daily Continue infliximab 800mg q8w. Alternatives include MMF at full uveitis dose 1.5g BID. alternative anti-TNF agent, Humira, Cimzia, Simponi Dr. Maguire is her current dry wall finisher Kiana Meza is user interface artist Dr. Gomez is neurologist Assessment & Plan (05/15/2022 8:34 AM CDT): Ozurdex OD 12/04/19, OS 01/18/20 Remicade now at 800mg [id number] this resumed and increased from 700mg q8w [...] Cimzia, Simponi Dr. Maguire is her current dry wall finisher Kiana Meza is user interface artist Dr. Gomez is neurologist Assessment & Plan (01/16/2022 9:16 AM CDT): Ozurdex OD 12/04/19, OS 01/18/20 Remicade now at 800mg [id number] this resumed and increased from 700mg q8w after she recovered from a bout of leukopenia and sinusitis infliximab level 03/17/21 was 5.9 on Choroiditis is quiet today, in remission with no new lesions Plan Continue MTX 25mg weekly, FA 1mg daily Continue infliximab 800mg q8w.. Alternatives include MMF at full uveitis dose 1.5g BID. alternative anti-TNF agent, Humluanne Cimzia, Simponi Dr. Maguire is her current dry wall finisher Kiana Meza is user interface artist Dr. Gomez is neurologist Assessment & Plan (10/24/2021 9:14 AM MARKETING OFFICER): Had Ozurdex OD 12/04/19, OS 01/18/20 Remicade 700mg m5bwusc (5mg/kg actual weight, probably more like 7mg/kg adjusted) infliximab level 03/17/21 was 5.9 Choroiditis is quiet today, in remission with no new lesions Plan Continue MTX 25mg weekly, FA 1mg daily Continue infliximab Alternatives include MMF at full uveitis dose 1.5g BID. alternative anti-TNF agent, Humluanne, Cimzia, Simponi Dr. Maguire is her current dry wall finisher Kiana Meza is user interface artist Dr. Gomez is neurologist Assessment & Plan (07/25/2021 8:51 AM MARKETING OFFICER): Had Ozurdex OD 12/04/19, OS 01/18/20 Remicade 700mg l7cpaag (5mg/kg actual weight, probably more like 7mg/kg adjusted) infliximab level 03/17/21 was 5.9 Inflammation is quiet today with no new lesions Plan Continue MTX 25mg weekly, FA 1mg daily Continue infliximab Alternatives include MMF at full uveitis dose 1.5g BID. alternative anti-TNF agent, HumPatience stroudzia, Simponi Dr. Maguire is her current dry wall finisher Kiana Meza is user interface artist Dr. Gomez is neurologist Assessment & Plan (04/21/2021 8:31 AM CDT): Had Ozurdex OD 12/04/19, OS 01/18/20 Remicade 700mg l4rpapy (5mg/kg actual weight, probably more like 7mg/kg [...] agent, David Peacock Simponi Bobby Shah was dry wall finisher Kiana Meza is user interface artist Dr. Gomez is neurologist Assessment & Plan [...] BID. alternative anti-TNF agent, David Peacock is dry wall finisher Kiana Meza is user interface artist Dr. Gomez is neurologist Assessment & Plan (10/18/2020 8:18 AM MARKETING OFFICER): Had Ozurdex OD 12/04/19, OS 01/18/20 Inflammation [...] BID. alternative anti-TNF agent, David Peacock is dry wall finisher Kiana Meza is user interface artist Dr. Gomez is neurologist Assessment & Plan (07/14/2020 10:53 PM MARKETING OFFICER): Ozurdex sample OD 12/04/19, OS 01/18/20 Lab [...] dose 1.5g BID. alternative anti-TNF agent, Humira, Cimzia Daniel Reynoso is dry wall finisher Kiana Meza is user interface artist Dr. Gomez is neurologist Assessment & Plan [...] dose 1.5g BID. alternative anti-TNF agent, Humira, Cimzia Daniel Reynoso is dry wall finisher Kiana Meza is user interface artist Dr. Gomez is neurologist Assessment & Plan [...] will await neurology input Daniel Reynoso is dry wall finisher Kiana Meza is user interface artist Dr. Gomez is neurologist Assessment & Plan [...] will await neurology input Daniel Reynoso is dry wall finisher Kiana Meza is user interface artist Ron Coats is neurologist (both [facility]) Resolved Problems Problem Noted Date [...] 01/01/2024 Assessment & Plan (10/24/2021 9:11 AM MARKETING OFFICER): Bilateral Recent symptoms possibly concerning for preseptal cellulitis, but also in the setting of sinusitus No signs of either today, 2 days after finishing cefuroxime. PLAN Lid scrubs tobradex naheed for 1 week Assessment & Plan (10/18/2020 8:16 AM MARKETING OFFICER): WC and lid scrubs High risk medication [...] months Assessment & Plan (10/30/2022 8:43 AM MARKETING OFFICER): Lab Results Component Value Date WBC 7.3 [...] months Assessment & Plan (08/07/2022 8:26 AM MARKETING OFFICER): Lab Results Component Value Date WBC 7.3 [...] months Assessment & Plan (10/24/2021 9:07 AM MARKETING OFFICER): Lab Results Component Value Date WBC 6.1 10/09/2021 HGB 12.4 10/09/2021 LABPLAT 170 10/09/2021 CREATININE 0.83 09/30/2021 AST 17 09/30/2021 ALT 15 09/30/2021 She had pancytopenia last month, improved with holding MTX Was also treated for sinusitis, cefuroxime for about 15 days , finished 2 days ago PLAN CBC, CMP q3 months Assessment & Plan (07/24/2021 12:08 PM MARKETING OFFICER): Lab Results Component Value Date WBC 6.3 05/28/2021 HGB 13.4 05/28/2021 LABPLAT 246 05/28/2021 CREATININE 0.98 05/28/2021 AST 14 05/28/2021 ALT 18 05/28/2021 [facility] 09/18/20 CBC and CMP are normal PLAN CBC, CMP q3 months Assessment & Plan (04/21/2021 7:41 AM CDT): Lab Results Component Value Date WBC 7.7 03/06/2021 HGB 14.5 03/06/2021 LABPLAT 236 03/06/2021 CREATININE 0.91 03/06/2021 AST 18 03/06/2021 ALT 19 03/06/2021 [facility] 09/18/20 CBC and CMP [...] months Assessment & Plan (10/18/2020 8:20 AM MARKETING OFFICER): Lab Results Component Value Date WBC 4.7 [...] on file Legal Sex Female 6:49 PM MARKETING OFFICER Gender Identity Not on file Sexual Orientation Not on file Last Filed Vital Signs Vital Sign Reading Time Taken Comments Blood Pressure 165/75 07/14/2024 9:32 AM MARKETING OFFICER Pulse 65 07/14/2024 9:32 AM MARKETING OFFICER Temperature 36.1 C (96.9 F) 05/09/2024 10:48 AM CDT Respiratory Rate 18 05/09/2024 10:48 AM CDT Oxygen Saturation 100% 05/09/2024 10:48 AM CDT Inhaled Oxygen Concentration - - Weight 78 kg (172 lb) 07/14/2024 9:32 AM MARKETING OFFICER Height 160 cm (5' 3 ) 07/14/2024 9:32 AM MARKETING OFFICER Body Mass Index 30.47 07/14/2024 9:32 AM MARKETING OFFICER Plan of Treatment Not on file Goals Goal Patient Goal Type Associated Problems Recent Progress Patient-Stated? Author CCM Chronic Pain Care Plan Chronic Care Management On track(2022 10:37 AM CDT) No Susan Almaraz, RN Note: Problem: Chronic Pain Goals: 1. Minimize further functional decline 2. Maximize quality of life 3. Control pain Strategies: - Activity/exercise program recommendation - Conservative stepwise pain medicine strategy with multi-disciplinary approach - Recommend healthy lifestyle strategies and compensatory methods as needed Procedures Procedure Name Priority Date/Time Associated Diagnosis Comments AUTOFLUORESCENCE - OU - BOTH EYES Routine 09/25/2024 9:11 AM MARKETING OFFICER Multifocal choroiditis of both eyes OCT, RETINA - OU - BOTH EYES Routine 09/25/2024 9:10 AM MARKETING OFFICER Multifocal choroiditis of both eyes COMPREHENSIVE METABOLIC PANEL Routine 03/22/2023 12:26 PM CDT High risk medication use DEXA AXIAL SKELETON BONE DENSITY 1 OR MORE SITES Schedule Routine, Read Routine (OP Routine) 12/16/2020 MAMMOGRAPHY Schedule Routine, Read Routine (OP Routine) 12/16/2020 from Last 3 Months or Most Recently Relevant to Health Maintenance Results * Autofluorescence - OU - Both Eyes (09/25/2024 9:11 AM MARKETING OFFICER) Anatomical Region Laterality Modality Head Other Narrative 09/25/2024 9:11 AM MARKETING OFFICER Right Eye Progression has been stable. Left Eye Progression has been stable. Notes OD stable appearance of all hyperAF and hypoAF OS stable appearance of all lesions nasal and off inf arcade, none in central macula No new lesions OU Misha Kirby MD OPHTH PHOTOGRAPHY Final Re sult * OCT, Retina - OU - Both Eyes (09/25/2024 9:10 AM MARKETING OFFICER) Anatomical Region Laterality Modality Head Optical Coherenc e Tomography Narrative 09/25/2024 9:10 AM MARKETING OFFICER Right Eye Quality was good. Scan locations included subfoveal. Progression has been stable. Left Eye Quality was good. Scan locations included subfoveal. Progression has been stable. Notes OU: scattered outer retinal attenuation OU, ERM, few subretinal drusen deposits, stable from prior us Misha Kirby MD OPHTH TOMOGRAPHY Final Res ult * (ABNORMAL) Comprehensive metabolic panel (03/22/2023 12:26 PM CDT) Glucose 90 65 - 99 mg/dL Irving Anderson Comment: Fasting reference interval BUN 20 7 - 25 mg/dL Irving Anderson Creatinine 0.98 0.50 - 1.05 mg/dL Irving Leong-Siomara Anderson eGFR 64 > OR = 60 mL/min/1.7 3m2 Irving Anderson BUN/creat ratio SEE NOTE: 6 - 22 (calc) Irving Leong-Siomara Anderson Comment: Not Reported: BUN and Creatinine are within reference range. Sodium 139 135 - 146 mmol/L Irving Leong-Siomara Anderson Potassium, pl 3.7 3.5 - 5.3 mmol/L Irving Leong-Siomara Anderson Chloride 95(L) 98 - 110 mmol/L Irving Leong-Siomara Anderson CO2 36(H) 20 - 32 mmol/L Irving Leong-Siomara Anderson Calcium 10.1 8.6 - 10.4 mg/dL Irving Anderson Protein, sr 7.3 6.1 - 8.1 g/dL Irving Leong-Siomara Anderson Albumin 4.4 3.6 - 5.1 g/dL Irving Leong-Siomara Anderson GLOBULIN 2.9 1.9 - 3.7 g/dL (calc) Irving Leong-Siomara Anderson Alb/glob ratio 1.5 1.0 - 2.5 (calc) Irving Leong-Siomara Anderson Bilirubin, total 0.6 0.2 - 1.2 mg/dL Irving Leong-Siomara Anderson Alk phos 85 37 - 153 U/L Irving Leong-Siomara Anderson AST 30 10 - 35 U/L Irving Leong-Siomara Anderson ALT (SGPT) 21 6 - 29 U/L Irving Leong-Siomara Anderson Blood 03/22/2023 12:2 6 PM CDT 03/22/2023 12:27 PM CDT us Marline Cuenca MD PhD LAB BLOOD ORDERABLES Final Result IRVING Anderson [address] [place] [address] * MAMMOGRAPHY (12/16/2020) Anatomical Region Laterality Modality Breast Mammography us Historical Provider MD WILSON MAMMO PROCEDURES Patsy l Result * Dexa Axial Skeleton Bone Density 1 or 2 Site (12/16/2020) Anatomical Region Laterality Modality Body N/A Radiographic Rosalina ging us Historical Provider MD WILSON DXA PROCEDURES Final Result from Last 3 Months or Most Recently Relevant to Health Maintenance Insurance mo9 ([employer]) O[employer] SOLUTIONS [facility] NEXUS Care Teams Card Maker Relationship Specialty Start Date End Date Kiana Meza MD [address] [place] [address] DR BARCLAY [address] [place] [address] PCP - General Rheumatology 03/30/19 Brian Dukes Jr., MD [address] [place] [address] Consulting Physician Neurology 05/02/20 Elie Maguire MD [address] [place] [address] Consulting Physician Pulmonary Disease 10/24/21 Misha Kirby MD [address] [place] [address] Consulting Physician Ophthalmology 05/09/24 Alejandro Martinez MD [address] [address] Referring Physician Neurology 05/09/24
[2024-10-02 08:47] LABS: Potassium 3.6 mmol/L (3.4-5.0)
[2024-10-02 08:51] LABS: Amylase 64 U/L (30-110)
== END 2024-10-02 08:13 | disposition home or self-care (01) ==
LOC: ANHSURGERY 08:16
PROVIDERS: Anesthesiology; PCP Internal Medicine Rheumatology; Visit Provider Surgery
DX: K80.10 Calculus of gallbladder with chronic cholecystitis without obstruction (principal); E87.6 Hypokalemia
CPT/HCPCS: 36415; 82150; 84132

== ENCOUNTER 2024-10-06 02:57 | Day surgery (SDC) | payer MEDICARE, SELFPAY ==
[2024-09-28 15:27] VITALS: BMI 29.4
--- NOTE | 2024-09-28 15:57 | PC.NURSE ---
Report to the Outpatient Waiting Room, entrance under the green pavilion located off [facility], at time ___8:00AM____ on date ___10/06/24____. Planned Procedure Time: ___10:00AM .? Time changes happen often and if your time is changed the preop area will call you the afternoon before. - You and your visitor will be asked to self-screen and do not enter if you have any COVID symptoms. Please call surgeon if you need to reschedule. - A mask is optional within the hospital at this time. Patients may have clear liquids (water, carbonated beverages, clear teas, apple juice) until 3 hours prior to surgery (7:00AM) with a maximum of 20 ounces. - No food from midnight until time of surgery and no smoking, or chewing tobacco (or any form of nicotine). No chewing gum, candy or mints. Take only the following medications with a SIP of water on the morning of surgery: MAY USE INHALER OR TAKE PREGABALIN OR TRAMADOL NEEDED.___ DO NOT STOP ANY OF YOUR OTHER PRESCRIPTION MEDICATIONS PRIOR TO SURGERY EXCEPT THE FOLLOWING Hold all vitamins and supplements for 3 days per anesthesiologist.-LAST DOSE 10/02/24. HOLD MOUNJARO 10 DAYS PRE-OP PER ANESTHESIA- LAST DOSE 09/25/24. Medications to discontinue per SURGEON- _HOLD ELIQUIS 3 DAYS PRE-OP PER DR STARR- LAST DOSE 10/02/24. HOLD REMICADE & METHOTREXATE 7 DAYS PRE-OP -LAST DOSE 09/28/24. Please no make-up, nail turkmen, hairspray, perfume, deodorant, or body powder the day of surgery.? No jewelry (including any body piercings) or valuables the day of surgery, leave them at home.? Please take a shower or bath the night before, or the morning of, surgery with an antibacterial soap.? Wear comfortable, loose fitting clothing.? - Jewelry must be removed prior to entering the operating room.? Rings and piercings that are not removed may be cut off. - The hospital will not accept responsibility for valuables.? - Please leave all valuables, including medications, at home the day of surgery. If you are going home after surgery, a licensed national van truck driver must drive you home.? - NO public transportation without another adult if you receive anesthesia. - We recommend that an adult stay with you for 24 hours following discharge. - We also recommend that you do not drive, make important decision, drink alcoholic beverages, or take any drugs that were not prescribed by your health care provider for at least 24 hours after your discharge time. Follow any additional instructions given to you from your surgeon. Telephone instructions given to ____PATIENT and asked if any additional questions and then verbalized understanding. Patient advised to call surgeon office or pre surgery nurse liaison [phone] if any additional questions.
[2024-10-06] VITALS (8 sets, daily range): BP systolic 101–132; BP diastolic 45–71; PULSE 55–74; RESP 12–18; TEMP 36.6–37.1; O2SAT 96–100; BMI 29.2
--- OUTSIDE RECORDS SUMMARY | 2024-10-06 02:59 | XMS_ITS | Encounter Summary ---
Author Organization [facility] Healthcare Address [address] [place] [address] Care Team Providers Care Sales And Distribution Clerk Name Role Phone Kiana Meza MD Primary Care Provider [phone] Roseline Francis MD, Brian Kruger Unavailable + Marline Cuenca MD PhD Unavailable [phone] Elie Maguire MD Unavailable [phone] Justina Bower MD Unavailable Misha Kirby MD Unavailable Alejandro Martinez MD Unavailable Unavailabl e Encounter Details Date Type Department Care Team (Late st Contact Info) Description 03/29/2023 Telephone [facility] [place] [facility] [address] [facility] Medicine [address] [place], [place] [phone] Justina Bower MD [address] [facility] [address] [id number] [place], [place] [id number] Social History Tobacco Use Types Packs/Day Years [...] on file 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 Gender Identity Not on file Sexual Orientation [...] on filedocumented in this encounter Care Teams Sales And Distribution Clerk Relationship Specialty Start Date End Date Kiana Meza MD [address] [place] [address] [place] [address] PCP - General Rheumatology 03/30/19 Brian Dukes Jr., MD [address] [place] [address] Consulting Physician Neurology 05/02/20 Marline Cuenca MD PhD [address] [place] [address] Consulting Physician Ophthalmology 05/02/20 05/08/24 Elie Maguire MD [address] [place] [address] Consulting Physician Pulmonary Disease 10/24/21 Justina Bower MD [address] [facility] [address] [facility] [id number] [place] [address] Consulting Physician Pain Management 10/24/21 05/08/24 Misha Kirby MD [address] [place] [address] Consulting Physician Ophthalmology 05/09/24 Alejandro Martinez MD [address] [facility] [address] [place] [address] Referring Physician Neurology 05/09/24 documented as of this encounter
--- OUTSIDE RECORDS SUMMARY | 2024-10-06 02:59 | XMS_ITS | Encounter Summary ---
Author Organization [facility] Healthcare Address [address] [place] [address] Care Team Providers Care Cotton Inspector Name Role Phone Kiana Meza MD Primary Care Provider Roseline Francis MD, Brian Kruger Unavailable + Marline Cuenca MD PhD Unavailable Elie Maguire MD Unavailable [phone] Justina Bower MD Unavailable Misha Kirby MD Unavailable [phone] Alejandro Martinez MD Unavailable Unavailabl e Encounter Details Date Type Department Care Team (Late st Contact Info) Description 11/18/2021 Documentation [facility] Operating Room [facility] [place] [address] Ramona Santiago, RN Social History Tobacco Use [...] on file 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 Gender Identity Not on file Sexual [...] on filedocumented in this encounter Care Teams Cotton Inspector Relationship Specialty Start Date End Date Kiana Meza MD [address] [place] [address] DR BARCL[address] [place] [address] PCP - General Rheumatology 03/30/19 Brian Dukes Jr., MD [address] [place] [address] Consulting Physician Neurology 05/02/20 Marline Cuenca MD PhD [address] [place] [address] Consulting Physician Ophthalmology 05/02/20 05/08/24 Elie Maguire MD [address] [place] [address] Consulting Physician Pulmonary Disease 10/24/21 Justina Bower MD [address] [phone] [place] [address] Consulting Physician Pain Management 10/24/21 05/08/24 Misha Kirby MD [facility] [place] [address] Consulting Physician Ophthalmology 05/09/24 [place] [address] [place] [address] Referring Physician Neurology 05/09/24 documented as of this encounter
--- OUTSIDE RECORDS SUMMARY | 2024-10-06 02:59 | XMS_ITS | Encounter Summary ---
Author Organization [facility] Healthcare Address [address] [place] [address] Care Team Providers Care Rotor Winder Name Role Phone Kiana Meza MD Primary Care Provider Roseline Francis MD, Brian Kruger Unavailable + Marline Cuenca MD PhD Unavailable Elie Maguire MD Unavailable Justina Bower MD Unavailable Misha Kirby MD Unavailable [phone] Alejandro Martinez MD Unavailable Unavailabl e Encounter Details Date Type Department Care Team (Late st Contact Info) Description 02/08/2023 Orders Only [facility] [place] [facility] [address] [facility] Advanced Medicine [address] [place] [id number] Susan Almaraz, TARUN Social History Tobacco Use [...] on file 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 Gender Identity Not on file Sexual Orientation [...] 02/08/2023 documented in this encounter Care Teams Rotor Winder Relationship Specialty Start Date End Date Kiana Meza MD [address] [place] [address] [place] [address] PCP - General Rheumatology 03/30/19 Brian Dukes Jr., MD [address] [place] [address] Consulting Physician Neurology 05/02/20 Marline Cuenca MD PhD [address] [place] [address] Consulting Physician Ophthalmology 05/02/20 05/08/24 Elie Maguire MD [address] [place] [address] Consulting Physician Pulmonary Disease 10/24/21 Justina Bower MD [address] [facility] [address] [facility] [id number] [place], [place] [phone] Consulting Physician Pain Management 10/24/21 05/08/24 Misha Kirby MD [address] [place] [address] Consulting Physician Ophthalmology 05/09/24 Alejandro Martinez MD [address] [address] Referring Physician Neurology 05/09/24 documented as of this encounter
--- OUTSIDE RECORDS SUMMARY | 2024-10-06 02:59 | XMS_ITS | Encounter Summary ---
Author Organization [facility] Healthcare Address [address] [place] [address] Care Team Providers Care Preparation Plant Repairer Name Role Phone Kiana Meza MD Primary Care Provider [phone] Roseline Francis MD, Brian Kruger Unavailable + Marline Cuenca MD PhD Unavailable Elie Maguire MD Unavailable [phone] Justina Bower MD Unavailable Misha Kirby MD Unavailable Alejandro Martinez MD Unavailable Unavailabl e Encounter Details Date Type Department Care Team (Late st Contact Info) Description 02/04/2023 Telephone [facility] [place] [facility] [address] [facility] Advanced Medicine [address] [place], [place] [phone] Justina Bower MD [address] [facility] [address] [phone] [place], [place] [phone] Social History Tobacco Use Types Packs/Day Years [...] on file 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 Gender Identity Not on file Sexual Orientation [...] on filedocumented in this encounter Care Teams Preparation Plant Repairer Relationship Specialty Start Date End Date Kiana Meza MD [address] [place] [address] DR BARCLAY [address] [place] [address] PCP - General Rheumatology 03/30/19 Brian Dukes Jr., MD [address] [place] [address] Consulting Physician Neurology 05/02/20 Marline Cuenca MD PhD [address] [place] [address] Consulting Physician Ophthalmology 05/02/20 05/08/24 Elie Maguire MD [address] [place] [address] Consulting Physician Pulmonary Disease 10/24/21 Justina Bower MD [address] [id number] [place] [address] Consulting Physician Pain Management 10/24/21 05/08/24 Misha Kirby MD [facility] [place] [address] Consulting Physician Ophthalmology 05/09/24 Alejandro Martinez MD [address] [address] Referring Physician Neurology 05/09/24 documented as of this encounter
--- OUTSIDE RECORDS SUMMARY | 2024-10-06 03:00 | XMS_ITS | Clinical Summary ---
Author Organization [facility] Address Formerly [facility] [place] [address] Care Team Providers Care Energy Assistant Name Role Phone Kiana Meza MD Primary Care Provider [phone] Encounters Date Type Department Care Team Description 09/28/2024 8:16 AM LAW FIRM RECEPTIONIST - 09/28/2024 11:59 PM LAW FIRM RECEPTIONIST Hospital Encounter [facility] [place] [address] Missy Holden MD Discharge Disposition: Home or Self Care (Routine Discharge) 09/28/2024 Travel from Last 3 Months Social History Tobacco Use Types Packs/Day Years Used Date Smoking Tobacco: Never Assessed Comments Unknown Sex and Gender Information Value Date Recorded Sex Assigned at Female 09/28/2024 8:15 AM LAW FIRM RECEPTIONIST Legal Sex Female 7:35 PM CDT Gender [...] on patient's age to complete this topic Procedures Procedure Name Priority Date/Time Associated Diagnosis Comments XR LUMB SPINE 3V Routine 09/28/2024 8:33 AM LAW FIRM RECEPTIONIST Stenosis, spinal, lumbar from Last 3 Months Results * XR LUMB SPINE 3V (09/28/2024 8:33 AM LAW FIRM RECEPTIONIST) Anatomical Region Laterality Modality Spine Radiographic Rosalina ging 10/04/2024 8:24 AM LAW FIRM RECEPTIONIST Impressions 10/04/2024 8:27 AM LAW FIRM RECEPTIONIST IMPRESSION: 1. Mild superior endplate compression fracture at L4. 2. Loosening of the bilateral interpedicular screws at L5. 3. Multilevel degenerative disc disease and facet arthropathy. Referred By: Interpreted By: Alejandro Posada DO, 10/04/2024 8:24 AM Narrative 10/04/2024 8:27 AM LAW FIRM RECEPTIONIST [address] [address] EXAMINATION: XR LUMB SPINE 3V HISTORY: Lower back pain. Prior lumbar spinal surgery. COMPARISON: X-ray lumbar spine 03/30/2024. TECHNIQUE: Multiple views of the lumbar spine. FINDINGS: There is mild lumbar levoscoliosis. No evidence of acute fracture or dislocation. No vertebral body height loss. There is multilevel degenerative disc disease and facet arthropathy. There is grade 1 degenerative anterolisthesis of L4 on L5, unchanged. There is a mild superior endplate compression fracture at L4. This is new from the prior exam. There is loosening of the bilateral interpedicular screws at L5. There is atherosclerotic calcification of the aorta. Procedure Note Alejandro Posada DO - 10/04/2024 [facility] [address] [place], [place] [address] EXAMINATION: XR LUMB SPINE 3V HISTORY: Lower back pain. Prior lumbar spinal surgery. COMPARISON: X-ray lumbar spine 03/30/2024. TECHNIQUE: Multiple views of the lumbar spine. FINDINGS: There is mild lumbar levoscoliosis. No evidence of acute fracture ordislocation. No vertebral body height loss. There is multileveldegenerative disc disease and facet arthropathy. There is grade 1degenerative anterolisthesis of L4 on L5, unchanged. There is a mildsuperior endplate compression fracture at L4. This is new from the priorexam. There is loosening of the bilateral interpedicular screws at L5.There is atherosclerotic calcification of the aorta. IMPRESSION: 1. Mild superior endplate compression fracture at L4. 2. Loosening of the bilateral interpedicular screws at L5. 3. Multilevel degenerative disc disease and facet arthropathy. Referred By: Interpreted By: Alejandro Posada DO, 10/04/2024 8:24 AM Missy Holden MD GENERAL IMAGING Final Result from Last 3 Months Insurance [facility] Care Teams Energy Assistant Relationship Specialty Start Date End Date Kiana Meza MD [address] [facility] [address] [place] [id number] PCP - General INTERNAL MEDICINE 12/30/23
--- OUTSIDE RECORDS SUMMARY | 2024-10-06 03:00 | XMS_ITS | Referral Summary ---
Author Organization [facility] [place] [address] Address [address] [place] [address] Care Team Providers Care Barman Name Role Phone Kiana Meza MD Primary Care Provider Roseline Francis MD, Brian Kruger Unavailable + Elie Maguire MD Unavailable Misha Kirby MD Unavailable [phone] Alejandro Martinez MD Unavailable Unavailabl e Encounters Date Type Department Care Team Description 09/25/2024 8:15 AM COMPUTER OPERATIONS MANAGER Office Visit [facility] Ophthalmology [address] [facility] [address]th [place] [address] Misha Kirby MD Multifocal choroiditis of both eyes (Primary Dx); Pseudophakia of both eyes; Dry eye syndrome of both eyes 07/14/2024 10:00 AM COMPUTER OPERATIONS MANAGER Office Visit [facility] Neurology [address] [facility] 6th [place] [address] [place] [id number] Alejandro Martinez MD Neurosarcoidosis (Primary Dx); Rheumatoid [...] HFA) 90 mcg/actuation inhaler 2 puff(s), Inhalation, [id number], PRN, 6.7 each, 2, 2, NEEDED FOR SHORTNESS OF BREATH, 17, Route to Pharmacy Electronically, [facility]/pharmacy #[id number], [id number] , 159, cm, 01/12/24 14:16:00 CDT, Height, 78.5, kg, 03/08/24 8:24:00 CDT, Weight 03/08/20 24 Active levocetirizine (XYZAL) 5 mg tablet 1 tablet (5 mg total) 11/01/19 24 Active ibandronate (BONIVA) 150 mg tablet TAKE 1 TABLET BY MOUTH ONCE MONTHY 03/28/20 24 Active budesonide (RHINOCORT AQUA) 32 mcg/actuation nasal spray 2 spray(s), Nasal, daily, 27 mL, [place], 6, 6, Route to Pharmacy Electronically, [facility]/pharmacy #[id number], [id number] , 160, cm, 09/07/23 14:38:00 COMPUTER OPERATIONS MANAGER, Height, 90.3, kg, 11/01/23 13:59:00 CDT, Weight [...] 12/17/2023 Assessment & Plan (09/26/2024 8:05 PM COMPUTER OPERATIONS MANAGER): Minor redness due to allergies per patient. 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 Dr. Frances did not think there was any evidence of MACHINE GREASER vasculitis. Labs Neg RPR, , histo, blasto, [...] LN. Assessment & Plan (09/26/2024 8:04 PM COMPUTER OPERATIONS MANAGER): Sarcoidosis affecting the eyes, presenting as multifocal [...] 12/04/19, OS 01/18/20 Remicade now at 800mg [id number] On MTX 15mg weekly due to Plan [...] steroid again. Dr. Maguire is her current director of payroll Dr. Kiana Meza is senior python developer Dr. Dukes is neurologist Assessment & Plan (10/30/2022 8:42 AM COMPUTER OPERATIONS MANAGER): Choroiditis is quiet today, in remission with no new lesions Ozurdex OD 12/04/19, OS 01/18/20 Remicade now at 800mg [id number] Off MTX due to low WBC and [...] steroid again. Dr. Maguire is her current director of payroll Dr. Kiana Meza is senior python developer Dr. Dukes is neurologist Assessment & Plan (08/07/2022 8:25 AM COMPUTER OPERATIONS MANAGER): Ozurdex OD 12/04/19, OS 01/18/20 Remicade now at 800mg [id number] Choroiditis is quiet today, in remission with no new lesions Plan Continue MTX 25mg weekly, FA 1mg daily Continue infliximab 800mg q8w. Alternatives include MMF at full uveitis dose 1.5g BID. alternative anti-TNF agent, Humira, Cimzia, Simponi Dr. Maguire is her current director of payroll Kiana Meza is senior python developer Dr. Gomez is neurologist Assessment & Plan (05/15/2022 8:34 AM CDT): Ozurdex OD 12/04/19, OS 01/18/20 Remicade now at 800mg [id number] this resumed and increased from 700mg q8w [...] Cimzia, Simponi Dr. Maguire is her current director of payroll Kiana Meza is senior python developer Dr. Gomez is neurologist Assessment & Plan (01/16/2022 9:16 AM CDT): Ozurdex OD 12/04/19, OS 01/18/20 Remicade now at 800mg [id number] this resumed and increased from 700mg q8w [...] Cimzia, Simponi Dr. Maguire is her current director of payroll Kiana Meza is senior python developer Dr. Gomez is neurologist Assessment & Plan (10/24/2021 9:14 AM COMPUTER OPERATIONS MANAGER): Had Ozurdex OD 12/04/19, OS 01/18/20 Remicade 700mg [id number] (5mg/kg actual weight, probably more like 7mg/kg adjusted) infliximab level 03/17/21 was 5.9 Choroiditis is quiet today, in remission with no new lesions Plan Continue MTX 25mg weekly, FA 1mg daily Continue infliximab Alternatives include MMF at full uveitis dose 1.5g BID. alternative anti-TNF agent, Humluanne, Cimzia, Simponi Dr. Maguire is her current director of payroll Kiana Meza is senior python developer Dr. Gomez is neurologist Assessment & Plan (07/25/2021 8:51 AM COMPUTER OPERATIONS MANAGER): Had Ozurdex OD 12/04/19, OS 01/18/20 Remicade 700mg [id number] (5mg/kg actual weight, probably more like 7mg/kg adjusted) infliximab level 03/17/21 was 5.9 Inflammation is quiet today with no new lesions Plan Continue MTX 25mg weekly, FA 1mg daily Continue infliximab Alternatives include MMF at full uveitis dose 1.5g BID. alternative anti-TNF agent, HumPatience stroudzia, Simponi Dr. Maguire is her current director of payroll Kiana Meza is senior python developer Dr. Gomez is neurologist Assessment & Plan (04/21/2021 8:31 AM CDT): Had Ozurdex OD 12/04/19, OS 01/18/20 Remicade 700mg [id number] (5mg/kg actual weight, probably more like 7mg/kg [...] agent, David Peacock Simponi Bobby Shah was director of payroll Kiana Meza is senior python developer Dr. Gomez is neurologist Assessment & [...] BID. alternative anti-TNF agent, David Peacock is director of payroll Kiana Meza is senior python developer Dr. Gomez is neurologist Assessment & Plan (10/18/2020 8:18 AM COMPUTER OPERATIONS MANAGER): Had Ozurdex OD 12/04/19, OS 01/18/20 Inflammation [...] BID. alternative anti-TNF agent, David Peacock is director of payroll Kiana Meza is senior python developer Dr. Gomez is neurologist Assessment & Plan (07/14/2020 10:53 PM COMPUTER OPERATIONS MANAGER): Ozurdex sample OD 12/04/19, OS 01/18/20 Lab [...] anti-TNF agent, Humira, Cimzia Daniel Reynoso is director of payroll Kiana Meza is senior python developer Dr. Gomez is neurologist Assessment & [...] anti-TNF agent, Humira, Cimzia Daniel Reynoso is director of payroll Kiana Meza is senior python developer Dr. Gomez is neurologist Assessment & [...] will await neurology input Daniel Reynoso is director of payroll Kiana Meza is senior python developer Dr. Gomez is neurologist Assessment & [...] will await neurology input Daniel Reynoso is director of payroll Kiana Meza is senior python developer Ron Coats is neurologist (both [facility]) Resolved Problems Problem Noted Date Diagnosed [...] 01/01/2024 Assessment & Plan (10/24/2021 9:11 AM COMPUTER OPERATIONS MANAGER): Bilateral Recent symptoms possibly concerning for preseptal cellulitis, but also in the setting of sinusitus No signs of either today, 2 days after finishing cefuroxime. PLAN Lid scrubs tobradex naheed for 1 week Assessment & Plan (10/18/2020 8:16 AM COMPUTER OPERATIONS MANAGER): WC and lid scrubs High risk medication [...] months Assessment & Plan (10/30/2022 8:43 AM COMPUTER OPERATIONS MANAGER): Lab Results Component Value Date WBC 7.3 [...] months Assessment & Plan (08/07/2022 8:26 AM COMPUTER OPERATIONS MANAGER): Lab Results Component Value Date WBC 7.3 [...] months Assessment & Plan (10/24/2021 9:07 AM COMPUTER OPERATIONS MANAGER): Lab Results Component Value Date WBC 6.1 10/09/2021 HGB 12.4 10/09/2021 LABPLAT 170 10/09/2021 CREATININE 0.83 09/30/2021 AST 17 09/30/2021 ALT 15 09/30/2021 She had pancytopenia last month, improved with holding MTX Was also treated for sinusitis, cefuroxime for about 15 days , finished 2 days ago PLAN CBC, CMP q3 months Assessment & Plan (07/24/2021 12:08 PM COMPUTER OPERATIONS MANAGER): Lab Results Component Value Date WBC 6.3 [...] months Assessment & Plan (10/18/2020 8:20 AM COMPUTER OPERATIONS MANAGER): Lab Results Component Value Date WBC 4.7 [...] on file Legal Sex Female 6:49 PM COMPUTER OPERATIONS MANAGER Gender Identity Not on file Sexual Orientation Not on file Last Filed Vital Signs Vital Sign Reading Time Taken Comments Blood Pressure 165/75 07/14/2024 9:32 AM COMPUTER OPERATIONS MANAGER Pulse 65 07/14/2024 9:32 AM COMPUTER OPERATIONS MANAGER Temperature 36.1 C (96.9 F) 05/09/2024 10:48 AM CDT Respiratory Rate 18 05/09/2024 10:48 AM CDT Oxygen Saturation 100% 05/09/2024 10:48 AM CDT Inhaled Oxygen Concentration - - Weight 78 kg (172 lb) 07/14/2024 9:32 AM COMPUTER OPERATIONS MANAGER Height 160 cm (5' 3 ) 07/14/2024 9:32 AM COMPUTER OPERATIONS MANAGER Body Mass Index 30.47 07/14/2024 9:32 AM COMPUTER OPERATIONS MANAGER Plan of Treatment Not on file Goals [...] - BOTH EYES Routine 09/25/2024 9:11 AM COMPUTER OPERATIONS MANAGER Multifocal choroiditis of both eyes OCT, RETINA - OU - BOTH EYES Routine 09/25/2024 9:10 AM COMPUTER OPERATIONS MANAGER Multifocal choroiditis of both eyes COMPREHENSIVE METABOLIC PANEL Routine 03/22/2023 12:26 PM CDT High risk medication use DEXA AXIAL SKELETON BONE DENSITY 1 OR MORE SITES Schedule Routine, Read Routine (OP Routine) 12/16/2020 MAMMOGRAPHY Schedule Routine, Read Routine (OP Routine) 12/16/2020 from Last 3 Months or Most Recently Relevant to Health Maintenance Results * Autofluorescence - OU - Both Eyes (09/25/2024 9:11 AM COMPUTER OPERATIONS MANAGER) Anatomical Region Laterality Modality Head Other Narrative 09/25/2024 9:11 AM COMPUTER OPERATIONS MANAGER Right Eye Progression has been stable. Left Eye Progression has been stable. Notes OD stable appearance of all hyperAF and hypoAF OS stable appearance of all lesions nasal and off inf arcade, none in central macula No new lesions OU Misha Kirby MD OPHTH PHOTOGRAPHY Final Re sult * OCT, Retina - OU - Both Eyes (09/25/2024 9:10 AM COMPUTER OPERATIONS MANAGER) Anatomical Region Laterality Modality Head Optical Coherenc e Tomography Narrative 09/25/2024 9:10 AM COMPUTER OPERATIONS MANAGER Right Eye Quality was good. Scan locations [...] LAB BLOOD ORDERABLES Final Result [facility] [address] [place] [address] * MAMMOGRAPHY (12/16/2020) Anatomical Region Laterality Modality Breast Mammography us Historical Provider MD WILSON MAMMO PROCEDURES Patsy l Result * Dexa Axial Skeleton Bone Density 1 or 2 Site (12/16/2020) Anatomical Region Laterality Modality Body N/A Radiographic Rosalina ging us Historical Provider MD WILSON DXA PROCEDURES Final Result from Last 3 Months or Most Recently Relevant to Health Maintenance Insurance [employer] [facility] MEDIC[facility] Address: [address] [address] [place] [address] [facility] H[facility]/PPO Address: [facility] [id number] [place] [phone] Care Teams Barman Relationship Specialty Start Date End Date Kiana Meza MD [address] [place] [address] DR BARCLAY [address] [place] [id number] PCP - General Rheumatology 03/30/19 Brian Dukes Jr., MD [address] [place] [address] Consulting Physician Neurology 05/02/20 Elie Maguire MD [address] [place] [address] Consulting Physician Pulmonary Disease 10/24/21 Misha Kirby MD [address] [place] [address] Consulting Physician Ophthalmology 05/09/24 Alejandro Martinez MD [address] [address] Referring Physician Neurology 05/09/24
--- OUTSIDE RECORDS SUMMARY | 2024-10-06 03:00 | XMS_ITS | Patient Health Record ---
Author Organization [employer] Address [address] [facility] [address] [place] [address] Care Team Providers Care Numerical Control Machine Machinist Name Role Phone Susana APPLE, [place] Primary Care Provider Thuan Lester Unavailable [phone] Reason For Referral No Information Plan Of Treatment No Information Insurance Providers Payer Name Payer Address Payer Phone Subscriber Number Group Number Insured Name Patient Relationship to Insured Coverage Start Date Coverage End Date [employer] H[employer]-POS [address] [address] [place] [address] [phone] [id number] Vika Gonzalez Self - patient is the insured
--- OUTSIDE RECORDS SUMMARY | 2024-10-06 03:00 | XMS_ITS | Clinical Summary ---
Author Organization [facility] [address] Address [address] [place] [address] Care Team Providers Care Freight Broker Agent Name Role Phone Kiana Meza MD Primary Care Provider [phone] Roseline Francis MD, Brain Kruger Unavailable + Elie Maguire MD Unavailable [phone] Misha Kirby MD Unavailable [phone] Alejandro Martinez MD Unavailable Unavailabl e Allergies [...] HFA) 90 mcg/actuation inhaler 2 puff(s), Inhalation, [id number], PRN, 6.7 each, 2, 2, NEEDED FOR SHORTNESS OF BREATH, 17, Route to Pharmacy Electronically, [facility]/pharmacy #[id number], [id number] , 159, cm, 01/12/24 14:16:00 CDT, Height, 78.5, kg, 03/08/24 8:24:00 CDT, Weight 03/08/20 24 Active levocetirizine (XYZAL) 5 mg tablet 1 tablet (5 mg total) 11/01/19 24 Active ibandronate (BONIVA) 150 mg tablet TAKE 1 TABLET BY MOUTH ONCE MONTHY 03/28/20 24 Active budesonide (RHINOCORT AQUA) 32 mcg/actuation nasal spray 2 spray(s), Nasal, daily, 27 mL, [place], 6, 6, Route to Pharmacy Electronically, [facility]/pharmacy #[id number], [id number] , 160, cm, 09/07/23 14:38:00 DEEP [facility] COOK FRY, Height, 90.3, kg, 11/01/23 13:59:00 CDT, Weight [...] 12/17/2023 Assessment & Plan (09/26/2024 8:05 PM DEEP FAT COOK FRY): Minor redness due to allergies per patient. 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 Dr. Frances did not think there was any evidence of [employer] SUPER[employer]OR vasculitis. Labs Neg RPR, , histo, blasto, [...] LN. Assessment & Plan (09/26/2024 8:04 PM DEEP FAT COOK FRY): Sarcoidosis affecting the eyes, presenting as multifocal [...] 12/04/19, OS 01/18/20 Remicade now at 800mg [id number] On MTX 15mg weekly due to Plan [...] steroid again. Dr. Maguire is her current drug regulatory affairs specialist Dr. Kiana Meza is traveling auditor Dr. Dukes is neurologist Assessment & Plan (10/30/2022 8:42 AM DEEP FAT COOK FRY): Choroiditis is quiet today, in remission with no new lesions Ozurdex OD 12/04/19, OS 01/18/20 Remicade now at 800mg [id number] Off MTX due to low WBC and [...] steroid again. Dr. Maguire is her current drug regulatory affairs specialist Dr. Kiana Meza is traveling auditor Dr. Dukes is neurologist Assessment & Plan (08/07/2022 8:25 AM DEEP [employer] COOK FRY): Ozurdex OD 12/04/19, OS 01/18/20 Remicade now at 800mg [id number] Choroiditis is quiet today, in remission with no new lesions Plan Continue MTX 25mg weekly, FA 1mg daily Continue infliximab 800mg q8w. Alternatives include MMF at full uveitis dose 1.5g BID. alternative anti-TNF agent, Humira, Cimzia, Simponi Dr. Maguire is her current drug regulatory affairs specialist Kiana Meza is traveling auditor Dr. Gomez is neurologist Assessment & Plan (05/15/2022 8:34 AM CDT): Ozurdex OD 12/04/19, OS 01/18/20 Remicade now at 800mg [id number] this resumed and increased from 700mg q8w [...] Cimzia, Simponi Dr. Maguire is her current drug regulatory affairs specialist Kiana Meza is traveling auditor Dr. Gomez is neurologist Assessment & Plan (01/16/2022 9:16 AM CDT): Ozurdex OD 12/04/19, OS 01/18/20 Remicade now at 800mg [id number] this resumed and increased from 700mg q8w [...] Cimzia, Simponi Dr. Maguire is her current drug regulatory affairs specialist Kiana Meza is traveling auditor Dr. Gomez is neurologist Assessment & Plan (10/24/2021 9:14 AM DEEP [employer] COOK FRY): Had Ozurdex OD 12/04/19, OS 01/18/20 Remicade 700mg [id number] (5mg/kg actual weight, probably more like 7mg/kg adjusted) infliximab level 03/17/21 was 5.9 Choroiditis is quiet today, in remission with no new lesions Plan Continue MTX 25mg weekly, FA 1mg daily Continue infliximab Alternatives include MMF at full uveitis dose 1.5g BID. alternative anti-TNF agent, David Peacock Simponi Dr. Anderson is her current drug regulatory affairs specialist Kiana Meza is traveling auditor Dr. Gomez is neurologist Assessment & Plan (07/25/2021 8:51 AM DEEP [employer] COOK FRY): Had Ozurdex OD 12/04/19, OS 01/18/20 Remicade 700mg [id number] (5mg/kg actual weight, probably more like 7mg/kg adjusted) infliximab level 03/17/21 was 5.9 Inflammation is quiet today with no new lesions Plan Continue MTX 25mg weekly, FA 1mg daily Continue infliximab Alternatives include MMF at full uveitis dose 1.5g BID. alternative anti-TNF agent, David Peacock, Simponi Dr. Maguire is her current drug regulatory affairs specialist Kiana Meza is traveling auditor Dr. Gomez is neurologist Assessment & Plan (04/21/2021 8:31 AM CDT): Had Ozurdex OD 12/04/19, OS 01/18/20 Remicade 700mg [id number] (5mg/kg actual weight, probably more like 7mg/kg [...] agent, David Peacock Simponi Bobby Shah was drug regulatory affairs specialist Kiana Meza is traveling auditor Dr. Gomez is neurologist Assessment & Plan [...] BID. alternative anti-TNF agent, David Peacock is drug regulatory affairs specialist Kiana Meza is traveling auditor Dr. Gomez is neurologist Assessment & Plan (10/18/2020 8:18 AM DEEP FAT COOK FRY): Had Ozurdex OD 12/04/19, OS 01/18/20 Inflammation [...] anti-TNF agent, Ayush, Heribertoa Daniel Reynoso is drug regulatory affairs specialist Kiana Meza is traveling auditor Dr. Gomez is neurologist Assessment & Plan (07/14/2020 10:53 PM DEEP [employer] COOK FRY): Ozurdex sample OD 12/04/19, OS 01/18/20 Lab [...] BID. alternative anti-TNF agent, David Peacock is drug regulatory affairs specialist Kiana Meza is traveling auditor Dr. Gomez is neurologist Assessment & Plan [...] BID. alternative anti-TNF agent, David Peacock is drug regulatory affairs specialist Kiana Meza is traveling auditor Dr. Gomez is neurologist Assessment & Plan [...] will await neurology input Daniel Reynoso is drug regulatory affairs specialist Kiana Meza is traveling auditor Dr. Gomez is neurologist Assessment & Plan [...] will await neurology input Daniel Reynoso is drug regulatory affairs specialist Kiana Meza is traveling auditor Ron Coats is neurologist (both [facility] [...] 01/01/2024 Assessment & Plan (10/24/2021 9:11 AM DEEP [employer] COOK FRY): Bilateral Recent symptoms possibly concerning for preseptal cellulitis, but also in the setting of sinusitus No signs of either today, 2 days after finishing cefuroxime. PLAN Lid scrubs tobradex naheed for 1 week Assessment & Plan (10/18/2020 8:16 AM DEEP FAT COOK FRY): WC and lid scrubs High risk medication [...] months Assessment & Plan (10/30/2022 8:43 AM DEEP FAT COOK FRY): Lab Results Component Value Date WBC 7.3 [...] months Assessment & Plan (08/07/2022 8:26 AM DEEP FAT COOK FRY): Lab Results Component Value Date WBC 7.3 [...] months Assessment & Plan (10/24/2021 9:07 AM DEEP [employer] COOK FRY): Lab Results Component Value Date WBC 6.1 10/09/2021 HGB 12.4 10/09/2021 LABPLAT 170 10/09/2021 CREATININE 0.83 09/30/2021 AST 17 09/30/2021 ALT 15 09/30/2021 She had pancytopenia last month, improved with holding MTX Was also treated for sinusitis, cefuroxime for about 15 days , finished 2 days ago PLAN CBC, CMP q3 months Assessment & Plan (07/24/2021 12:08 PM DEEP FAT COOK FRY): Lab Results Component Value Date WBC 6.3 05/28/2021 HGB 13.4 05/28/2021 LABPLAT 246 05/28/2021 CREATININE 0.98 05/28/2021 AST 14 05/28/2021 ALT 18 05/28/2021 [facility] labs 09/18/20 CBC and CMP are normal PLAN CBC, CMP q3 months Assessment & Plan (04/21/2021 7:41 AM CDT): Lab Results Component Value Date WBC 7.7 03/06/2021 HGB 14.5 03/06/2021 LABPLAT 236 03/06/2021 CREATININE 0.91 03/06/2021 AST 18 03/06/2021 ALT 19 03/06/2021 [facility] labs 09/18/20 CBC and CMP are normal PLAN CBC, CMP q3 months Assessment & Plan (01/13/2021 9:55 AM CDT): Lab Results Component Value Date WBC 4.7 05/11/2020 HGB 12.0 05/11/2020 LABPLAT 231 05/11/2020 CREATININE 0.96 07/12/2020 AST 18 05/11/2020 ALT 21 05/11/2020 [facility] labs 09/18/20 CBC and CMP are normal PLAN CBC, CMP q3 months Assessment & Plan (10/18/2020 8:20 AM DEEP FAT COOK FRY): Lab Results Component Value Date WBC 4.7 [...] Department Care Team Description 09/25/2024 8:15 AM DEEP FAT COOK FRY Office Visit [facility] Ophthalmology [address] [place] [address] Misha Kirby MD Multifocal choroiditis of both eyes (Primary Dx); Pseudophakia of both eyes; Dry eye syndrome of both eyes 07/14/2024 10:00 AM DEEP FAT COOK FRY Office Visit [facility] Neurology [address] [facility] [address]th [place] [address] [place] [id number] Alejandro Martinez MD Neurosarcoidosis (Primary Dx); Rheumatoid [...] History Date Comments Hypertension Sarcoidosis Rheumatoid arthritis ([facility]) see m eds Hiatal hernia Pulmonary embolism ([facility]) 2018 DVT (deep venous thrombosis) ([facility]) ([facility]) 201 9 RLE Osteopenia Sleep apnea cpap nightly GERD (gastroesophageal reflux disease) controlled with meds Asthma rarely needs inh aler Chronic pain disorder back and j oints RLS (restless legs syndrome) h/o , improved since Baclofen Low back pain Blood clot in vein High risk medication use 10/18/2020 BMI 40.0-44.9, adult ([facility]) 09/23/2021 BMI 45.0-49.9, adult ([facility]) 05/25/2022 BMI 39.0-39.9,adult 03/26/2023 Dry eye syndrome of both eyes 12/17/2023 Hyperlipidemia 05/08/2024 Acute UTI 05/08/2024 Valvular sclerosis 05/08/2024 Neck pain 05/08/2024 Numbness 05/08/2024 Exogenous obesity 05/08/2024 DVT of lower limb, acute ([facility]) 05/08/2024 Cervical spinal stenosis 05/08/2024 Thrush 05/08/2024 Abdominal mass 05/08/2024 Rheumatoid arthritis with rh eumatoid factor, unspecified ([facility]) 05/08/2024 Chorioretinitis 05/08/2024 Dyspnea 05/08/2024 Chronic [...] on file Legal Sex Female 6:49 PM DEEP FAT COOK FRY Gender Identity Not on file Sexual Orientation Not on file Obstetrics History Last Filed Vital Signs Vital Sign Reading Time Taken Comments Blood Pressure 165/75 07/14/2024 9:32 AM DEEP [employer] COOK FRY Pulse 65 07/14/2024 9:32 AM [facility] [employer] COOK FRY Temperature 36.1 C (96.9 F) 05/09/2024 10:48 AM CDT Respiratory Rate 18 05/09/2024 10:48 AM CDT Oxygen Saturation 100% 05/09/2024 10:48 AM CDT Inhaled Oxygen Concentration - - Weight 78 kg (172 lb) 07/14/2024 9:32 AM D[facility] [employer] COOK FRY Height 160 cm (5' 3 ) 07/14/2024 9:32 AM [facility] [employer]OOK FRY Body Mass Index 30.47 07/14/2024 9:32 AM DEEP [employer] COOK FRY Plan of Treatment Health Maintenance Due Date [...] - BOTH EYES Routine 09/25/2024 9:11 AM D[facility] [employer] COOK FRY Multifocal choroiditis of both eyes OCT, RETINA - OU - BOTH EYES Routine 09/25/2024 9:10 AM [employer] [employer]OOK FRY Multifocal choroiditis of both eyes COMPREHENSIVE METABOLIC PANEL Routine 03/22/2023 12:26 PM CDT High risk medication use DEXA AXIAL SKELETON BONE DENSITY 1 OR MORE SITES Schedule Routine, Read Routine (OP Routine) 12/16/2020 MAMMOGRAPHY Schedule Routine, Read Routine (OP Routine) 12/16/2020 from Last 3 Months or Most Recently Relevant to Health Maintenance Results * Autofluorescence - OU - Both Eyes (09/25/2024 9:11 AM DEEP [employer] COOK FRY) Anatomical Region Laterality Modality Head Other Narrative 09/25/2024 9:11 AM D[facility] [employer]OOK FRY Right Eye Progression has been stable. Left Eye Progression has been stable. Notes OD stable appearance of all hyperAF and hypoAF OS stable appearance of all lesions nasal and off inf arcade, none in central macula No new lesions OU Misha Kirby MD OPHTH PHOTOGRAPHY Final Re sult * OCT, Retina - OU - Both Eyes (09/25/2024 9:10 AM D[facility] [employer] COOK FRY) Anatomical Region Laterality Modality Head Optical Coherenc e Tomography Narrative 09/25/2024 9:10 AM DEEP [employer] COOK FRY Right Eye Quality was good. Scan locations included subfoveal. Progression has been stable. Left Eye Quality was good. Scan locations included subfoveal. Progression has been stable. Notes OU: scattered outer retinal attenuation OU, ERM, few subretinal drusen deposits, stable from prior Misha Kirby MD OPHTH TOMOGRAPHY Final Res ult * (ABNORMAL) Comprehensive metabolic panel (03/22/2023 12:26 PM CDT) Pathologist [facility] Glucose 90 65 - 99 mg/dL [employer] jignesh Anderson Comment: Fasting reference interval BUN 20 7 - 25 mg/dL [facility] jignesh Anderson Creatinine 0.98 0.50 - 1.05 mg/dL [facility] jignesh Anderson eGFR 64 > OR = 60 mL/min/1.7 3m2 [employer] jignesh Anderson BUN/creat ratio SEE NOTE: 6 - 22 (calc) [employer] jignesh Anderson Comment: Not Reported: BUN and Creatinine are within reference range. Sodium 139 135 - 146 mmol/L [facility] jignesh Anderson Potassium, pl 3.7 3.5 - 5.3 mmol/L [employer] jignesh Anderson Chloride 95(L) 98 - 110 mmol/L [employer] jignesh Anderson CO2 36(H) 20 - 32 mmol/L [facility] jignesh Anderson Calcium 10.1 8.6 - 10.4 mg/dL [facility] jignesh Anderson Protein, sr 7.3 6.1 - 8.1 g/dL [facility] jignesh Anderson Albumin 4.4 3.6 - 5.1 g/dL [facility] jignesh Anderson GLOBULIN 2.9 1.9 - 3.7 g/dL (calc) [employer] UK[employer]omara Anderson Alb/glob ratio 1.5 1.0 - 2.5 [...] LAB BLOOD ORDERABLES Final Result [facility] [place] [address] [place] [address] * MAMMOGRAPHY (12/16/2020) Anatomical Region Laterality Modality Breast Mammography Historical Provider IMG MAMMO PROCEDURES Patsy l Result * Dexa Axial Skeleton Bone Density 1 or 2 Site (12/16/2020) Anatomical Region Laterality Modality Body N/A Radiographic Rosalina ging Historical Provider IMG DXA PROCEDURES Final Result from Last 3 Months or Most Recently Relevant to Health Maintenance Insurance [employer] [facility] MEDICARE Address: [address] [address] [place] [address] [facility] NEX[employer] [facility] HMO/PPO Address: [address] [place] [address] Care Teams Freight Broker Agent Relationship Specialty Start Date End Date Kiana Meza MD [address] [place] [address] [place] [address] PCP - General Rheumatology 03/30/19 Brian Dukes Jr., MD [address] [place] [address] Consulting Physician Neurology 05/02/20 Elie Maguire MD [address] [place] [address] Consulting Physician Pulmonary Disease 10/24/21 Misha Kirby MD [facility] [place] [address] Consulting Physician Ophthalmology 05/09/24 [place] [address] [place] [address] Referring Physician Neurology 05/09/24
--- OUTSIDE RECORDS SUMMARY | 2024-10-06 03:00 | XMS_ITS ---
Author Organization [employer], [facility] Address [address] [place] [address] Dr. [address] [place] [address] Care Team Providers Care Risk Control Consultant Name Role Phone Susana APPLE, Kiana Primary Care Provider Thuan L[facility] [phone] REASON FOR VISIT RUQ pain, gallstones Encounters Encounter Location Date Provider Diagnosis [address] Devreis [address] [place] [phone] 09/26/2024 Thuan Amaya Plan Of Treatment No Information Progress Notes * Vika VALLESDOB:[birth year] (69 yo F)Acc No.[id number]:09/26/2024 Patient: Vkia BRITO Provider: Robert Amaya M.D. :1955 A ge:69 Y S ex:Female Date:09/26/2024 Address:[facility] [place] [place], [facility] Pcp:Kiana Meza MD Subjective: * Chief Complaints: * 1 . RUQ pain, gallstones. * Medical History: Objective: * Vitals: Assessment: Plan: * Treatment: * Images: * Electronic signature of Thuan Amaya MD on 10/06/2024 at 02:59 AM DRAPERY ESTIMATOR Sign off status: Pending * Provider: Robert Amaya M.D. Date: 09/26/2024 Generated for Printi ng/Faxing/eTransmitting on: 10/06/2024 02:59 AM DRAPERY ESTIMATOR
--- OUTSIDE RECORDS SUMMARY | 2024-10-06 03:00 | XMS_ITS | Encounter Summary ---
Author Organization [facility] Address [address] [place] [address] Care Team Providers Care Plant Anatomy Teacher Name Role Phone Kiana Meza MD Primary Care Provider Daniel Reynoso MD Unavailable [phone] Roseline Francis MD, Steven Richard Unavailable + Marline Cuenca MD PhD Unavailable Elie Maguire MD Unavailable [phone] Justina Bower MD Unavailable Misha Kirby MD Unavailable [phone] Alejandro Martinez MD Unavailable Unavailabl e Encounter Details Date Type Department Care Team (Late st Contact Info) Description 09/05/2021 Telephone [facility] Radiology [address] [place] [address] Brian Dukes Jr., MD [address] [facility] [address] [place] [address] Social History Tobacco Use Types [...] on file Legal Sex Female 6:49 PM BUTTON RIVETER Gender Identity Not on file Sexual Orientation Not on file documented as of this encounter Plan of Treatment Not on file documented as of this encounter Visit Diagnoses Not on filedocumented in this encounter Care Teams Plant Anatomy Teacher Relationship Specialty Start Date End Date Kiana Meza MD [address] [facility] [address] [place] [address] PCP - General Rheumatology 03/30/19 Daniel Reynoso MD [address] [place] [address] [address] [place] [address] Consulting Physician Pulmonary Disease 01/18/20 10/23/21 Brian Dukes Jr., MD [address] [place] [address] Consulting Physician Neurology 05/02/20 Marline Cuenca MD PhD [address] [place] [address] Consulting Physician Ophthalmology 05/02/20 05/08/24 Elie Maguire MD [address] [place] [address] Consulting Physician Pulmonary Disease 10/24/21 Justina Bower MD [address] [facility] [address] [facility] [phone] [place] [address] Consulting Physician Pain Management 10/24/21 05/08/24 Misha Kirby MD [facility] [place] [address] Consulting Physician Ophthalmology 05/09/24 [place] [address] [place] [address] Referring Physician Neurology 05/09/24 documented as of this encounter
[2024-10-06] MEDS: LACTATED RINGERS 1,000 ML 30 ML IV CONT ×2 (08:51→11:08)
[2024-10-06] MEDS: ACETAMINOPHEN 500 MG TABLET 1000 MG PO (08:51)
[2024-10-06] MEDS: KETOROLAC 15 MG/ML VIAL (*BKC) IV PUSH (08:52)
--- NOTE | 2024-10-06 09:30 | WPDANESEPPF ---
Anes - Initial Pre Proc Eval Procedure: Operation Date: 10/06/24 10:00 Proposed Procedures p Laparoscopic Cholecystectomy, Possible Open - Oc Esqueda MD Date/Time: 10/06/24 09:30 Surgeon: Oc Esqueda MD Pre Op Diagnosis: chronic calculous cholecystitis Patient Data Age: 69 Gender: F Height: 1.57 m Weight: 72.5 kg Last Vital Signs Temp 37.1 C 10/06/24 08:15 Pulse 55 L 10/06/24 08:15 Resp 18 10/06/24 08:15 BP 125/71 10/06/24 08:15 Pulse Ox 100 10/06/24 08:15 O2 Del Method Room Air 10/06/24 08:15 Allergies Allergy/AdvReac Type Severity Reaction Status Date / Time doxycycline AdvReac Unknown Nausea Verified 10/06/24 09:24 Home Medications ?Medication ?Instructions ?Recorded ?Confirmed ?Type folic acid 1 mg tablet 1 mg PO DAILY 10/28/20 10/06/24 History infliximab 100 mg intravenous 800 mg IV ONCE 10/28/20 09/28/24 History solution (Remicade) methotrexate sodium 2.5 mg tablet 25 mg PO WEEKLY 10/28/20 10/06/24 History omeprazole 20 mg capsule,delayed 20 mg PO DAILY 10/28/20 10/06/24 History release torsemide 10 mg tablet 20 mg PO QAM 10/28/20 10/06/24 History tramadol 50 mg tablet 50 mg PO Q6H PRN Pain 10/28/20 09/28/24 History zolpidem 10 mg tablet 10 mg PO QHS PRN Insomnia 10/28/20 10/06/24 History baclofen 10 mg tablet 10 mg PO TID PRN muscle spasm 10/07/21 10/06/24 History pregabalin 50 mg capsule (Lyrica) 50 mg PO QID PRN pain 10/07/21 10/06/24 History albuterol sulfate 90 mcg/actuation 2 puff inhalation QID PRN 02/16/22 09/28/24 History aerosol inhaler Shortness Of Breath apixaban 2.5 mg tablet (Eliquis) 2.5 mg PO BID 09/13/24 10/06/24 History fluticasone 500 mcg-salmeterol 50 1 inh inhalation Q12H PRN 09/13/24 09/28/24 History mcg/dose blistr powdr for shortness of breath inhalation potassium chloride 8 mEq 16 meq PO BID 09/13/24 10/06/24 History tablet,extended release azelastine 137 mcg (0.1 %) nasal 1 spray intranasal DAILY 09/28/24 10/06/24 History spray cholecalciferol (vitamin D3) 1,250 50,000 unit PO WEEKLY 09/28/24 10/06/24 History mcg (50,000 unit) tablet ibandronate 150 mg tablet 150 mg PO MONTHLY 09/28/24 09/28/24 History rosuvastatin 10 mg tablet 10 mg PO DAILY 09/28/24 10/06/24 History tirzepatide 15 mg/0.5 mL 15 mg subcut WEEKLY 09/28/24 10/06/24 History subcutaneous pen injector (Mounjaro) Patient hx anesthesia problems: none Family hx anesthesia problems: none Results Review: All pre-operative results and documents have been reviewed as part of the pre-operative evaluation. 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 Rheumatoid arthritis GERD (gastroesophageal reflux disease) Hypertension JEROME (obstructive sleep apnea) Asthma History of blood clots March 2019 Surgical History Surgical History Status post lumbar spine operative procedure for decompression of spinal cord 2023 H/O umbilical hernia repair Lap incarcerated umbilical hernia repair w/ mesh, Da Dusty assisted on 02/24 History of endoscopy History of delivery History of sinus surgery Family History Family History Mother Ovarian cancer Hypertension Asthma Unknown Hypertension Cancer Sibling Gallbladder cancer Social History Social History Smoking status: Never smoker Alcohol intake: current Drinks per week: 2 Alcohol use details: social Substance use: never Substance use type: does not use Do You Feel Safe in your Home?: Yes Lack of Transportation: No Lack of Food: Never True Current Housing: I Have Housing Concerned About Future Housing: No Difficulty Paying Gas/Electric Bills: No Difficulty Paying for Meds: No Currently Unemployed: No Education: Associate Degree Difficulty w/ Childcare or Family Care: No Living arrangements: with family Additional living arrangements comments: HUSB Occupation/Education: occupation Additional occupation/education comments: [employer] Spiritual care concerns: No Anes - Eval Final PreProcedure Day of Procedure 10/06/24 09:30 Patient weight: obese Heart: regular rate and rhythm Lungs: clear to auscultation Airway: Mallampati scale class II and special considerations poor opening Neurological: alert and oriented Last oral intake: >/= 8 hours ASA classification: III Emergent: no Anesthetic plan: proceed Anesthesia type and monitoring: general ETT and standard monitoring Results Review: All pre-operative results and documents have been reviewed as part of the pre-operative evaluation. Informed Consent: The patient's anesthetic plan and its attendant risks and benefits were discussed with the patient/family/POA. Questions were solicited and answers provided to the satisfaction of the patient/family/POA.
--- NOTE | 2024-10-06 09:35 | WPDHPUPDATE1 ---
History and Physical Update Update Date/Time: 10/06/24 09:35 History and Physical has been reviewed, including an updated exam of the patient. There are NO changes in the patient's condition. Risks, benefits, and alternatives have been discussed and questions answered. Patient agrees to proceed with procedure.
[2024-10-06] MEDS: ceFAZolin 2 GM/D5W 50 ML 2 GM/50 ML BAG IVPB (09:54)
[2024-10-06] MEDS: LIDO 1%/EPINEPHRINE 1:100,000 20 ML VIAL 30 ML INFILTRATE (10:14)
[2024-10-06] MEDS: BUPivacaine HCL 0.5% 10 ML AMP 30 ML INFILTRATE (10:15)
--- NOTE | 2024-10-06 11:13 | P.OP_ITS ---
Procedure Note - Detailed Date of Procedure 10/06/24 Pre-op Diagnosis Chronic calculous cholecystitis Post-op Diagnosis Same Procedure Performed Laparoscopic cholecystectomy Surgeon Oc Esuqeda MD [employer] [facility] Anesthesia General Indications Patient is a 69-year-old female who was in the emergency room about 2 weeks ago with complaints of severe right upper quadrant abdominal pain. The pain is made worse with eating foods that especially fatty. The pain radiated to her back. Imaging at that time showed gallstones and some gallbladder wall thickening. No acute inflammation was seen. She presents now for elective laparoscopic cholecystectomy due to likely chronic cholecystitis secondary to cholelithiasis. Findings The gallbladder was distended and the gallbladder wall was chronically thickened. There were some omental adhesions to the dome of the gallbladder consistent with prior likely acute inflammation the gallbladder which was now chronic. Patient had a piece of periumbilical mesh in place intraperitoneally and there were some omental adhesions to the mesh but no obvious evidence of bowel adhesions. I was able to place the laparoscopic ports cephalad of the mesh without putting any ports through the mesh. Description of Procedure After informed consent was obtained patient brought to the operating room she was placed supine position and general endotracheal anesthesia was administered. The abdomen was then prepped and draped usual sterile fashion. A time-out was then performed correctly identifying the patient as well as the procedure to be performed. Was given perioperative IV antibiotics. I then entered the abdomen left upper quadrant utilizing a 5mm Optiview port. Once inside the abdomen insufflated to adequate pneumoperitoneum of 15mmHg of CO2. There were omental adhesions in the periumbilical region. I could see the cephalad edge of a piece of mesh which was intact. I was able to place a 5mm Optiview port just cephalad of the mesh itself under direct visualization. The laparoscopic was then switched over to this lower epigastric abdominal wall port site and then I placed additional laparoscopic trocar ports to include a 10mm epigastric upper epigastric trocar port and 2 more right subcostal 5mm trocar ports all under direct visualization. The gallbladder was visualized. It was dilated gallbladder wall thickening. There was an adhesion of the omentum to the dome of the gallbladder which appeared to be chronic. There is no acute inflammation of the gallbladder. I divided the omental adhesion to the dome of the gallbladder utilizing hook electrocautery. I was then able to hold the gallbladder at the dome with a laparoscopic grasper and elevate the gallbladder over the right half liver towards the right shoulder. A 2nd grasper was used to hold the gallbladder at the infundibulum. I then proceeded to strip down the visceral peritoneum off of the infundibular gallbladder to identify the cystic duct. The cystic duct was dissected out circumferentially. The cystic artery was identified and dissected out circumferentially as well. Posterior wall the gallbladder at the infundibulum dissected free liver into the critical view was obtained. At this point I then placed 2 clips proximally cystic duct in 2 clips distally high on infundibular gallbladder. The cystic duct was then divided w ith Endo Obinna. In similar fashion cystic artery was clipped and divided as well. The gallbladder was resected off the liver utilizing electrocautery. Once the gallbladder was freed from the liver is placed into an Endo-Catch bag and brought out through the epigastric port site. The gallbladder and contents were sent to pathology for examination. I then irrigated out the right upper quadrant the abdomen the gallbladder fossa with sterile saline solution. Hemostasis was then achieved electrocautery. I then aspirated the fluid from the right upper quadrant the abdomen. I then removed all the trocar ports under direct visualization all port sites appeared to be hemostatic. I then allowed the abdomen to decompress. I then irrigated all the port sites sterile saline solution all port sites were hemostatic. The epigastric 10mm trocar port fascial defect was then closed utilizing 0 Vicryl suture placed in a figure- eight fashion. The port site incisions were all then closed at the skin level utilizing a running subcuticular 4-0 Monocryl suture. The incisions were then cleaned the skin glue was applied. The patient tolerated the procedure well no complications. All sponges, needles, and instrument counts were correct at the end procedure. EBL was _20__cc. The patient was awakened and taken to recovery in stable and satisfactory condition. Implants None Estimated Blood Loss 20 Drains No Packing Yes Pathology Yes (Gallbladder and contents to pathology) Complications No immediate complications Condition Stable Disposition PACU [facility] Billing Surgery - Charge Forward: Surgery Billing
[2024-10-06] MEDS: fentaNYL CITRATE INJ (*CRX) 100 MCG/2 ML VIAL 25 MCG IV PUSH ×2 (11:30→11:32)
--- NOTE | 2024-10-06 12:30 | SUR.PHASEII ---
Patient states MD Esqueda gave her information regarding when to resume Eliquis and methotrexate that she left at home. States she will resume those medications per MD Esqueda direction. Patient instructed to contact office with any questions or concerns.
--- NOTE | 2024-10-06 13:20 | SUR.PHASEII ---
New bag of LR hung at 1250 - 650mL infused.
== END 2024-10-06 13:28 | disposition home or self-care (01) ==
PROVIDERS: PCP Internal Medicine Rheumatology; Visit Provider Surgery
PROC: 0FT44ZZ Resection of Gallbladder, Percutaneous Endoscopic Approach (ICD-10-PCS; CPT 47562; principal; 2024-10-06 10:00)
DX: K80.10 Calculus of gallbladder with chronic cholecystitis without obstruction (principal); K66.0 Peritoneal adhesions (postprocedural) (postinfection); R59.0 Localized enlarged lymph nodes; K21.9 Gastro-esophageal reflux disease without esophagitis; I10 Essential (primary) hypertension; G47.33 Obstructive sleep apnea (adult) (pediatric); J45.909 Unspecified asthma, uncomplicated; M06.9 Rheumatoid arthritis, unspecified; E66.9 Obesity, unspecified; Z68.29 Body mass index [BMI] 29.0-29.9, adult; Z79.891 Long term (current) use of opiate analgesic; Z79.51 Long term (current) use of inhaled steroids; Z79.01 Long term (current) use of anticoagulants; Z79.83 Long term (current) use of bisphosphonates; Z79.85 Long-term (current) use of injectable non-insulin antidiabetic drugs; Z98.890 Other specified postprocedural states; Z98.1 Arthrodesis status; Z80.41 Family history of malignant neoplasm of ovary; Z80.0 Family history of malignant neoplasm of digestive organs
CPT/HCPCS: 47562; 88304; A9270; J0690; J1100; J1171; J1885; J2003; J2004; J2250; J2405; J2704; J3010; J7120

== ENCOUNTER 2025-08-10 12:22 | Outpatient (CLI) | payer MEDICARE, SELFPAY ==
--- NOTE | ~2025-08-10 | MM_ITS ---
EXAMINATION: MM screening tiffany BI w jose alberto HISTORY: Screening TECHNIQUE: Craniocaudal and mediolateral oblique 3-D tomosynthesis images were obtained and synthetic 2-D images were generated. CAD analysis was submitted and interpreted. COMPARISON: Comparison to multiple prior studies sequentially, with oldest reviewed study dated 05/19/2017. BREAST PARENCHYMAL COMPOSITION: Not dense: There are scattered areas of fibroglandular density. FINDINGS: There is no evidence of suspicious mass, calcification, or architectural distortion to suggest malignancy in either breast. There has been no suspicious interval change. IMPRESSION: 1. No mammographic evidence of malignancy. 2. Recommend routine screening mammography in one year. BI-RADS Category 1: Negative Reviewed, dictated and finalized at location O. RE PHOTOGRAPHER
== END 2025-08-10 12:23 | disposition home or self-care (01) ==
LOC: MICIMG 12:23
PROVIDERS: PCP Internal Medicine Rheumatology; Visit Provider Obstetrics & Gynecology Gynecology
DX: Z12.31 Encounter for screening mammogram for malignant neoplasm of breast (principal)
CPT/HCPCS: 77063; 77067